=== PATIENT | female | born 1950 | race Caucasian/White ===

== ENCOUNTER 2016-11-20 19:39 | Inpatient (IN) ==
[2016-11-20] MEDS ORDERED: methylPREDNISolone 125 MG/2 ML VIAL IVP ONE (19:42)
[2016-11-20] MEDS ORDERED: Ipratropium/Albuterol Neb 3 ML IH ONE (19:42)
--- NOTE | 2016-11-20 19:42 | Emergency Department Note ---
Disposition Clinical Impression: COPD exacerbation, Hypoxia Disposition: Admitted As Inpatient Condition: Fair Referrals: NO,PCP [Primary Care Provider] - Forms: ED Satisfaction Letter Time of Disposition: 21:49 SOB HPI - General Chief Complaint: ED Shortness of Breath/Dyspnea Stated Complaint: RILEY Time Seen by Provider: 11/20/16 19:40 Limitations: no limitations Nursing Notes Reviewed: Yes Vital Signs Reviewed: Yes - History of Present Illness 66-year-old female with history of COPD presents to the emergency department by EMS with a complaint of increased shortness of breath over the past several hours. Family reports that she has actually been getting more short of breath over the past few days. She has had some increased cough with white sputum. Fever. No chest pain. The patient is a smoker and continues to smoke. She does have home oxygen which she just uses as needed. She was given a DuoNeb by EMS and on arrival here her oxygen saturation was 90% on oxygen at 4 L/m. Pt Subjective Complaint: shortness of breath Onset (ago): day(s) (2) Severity: moderate Consistency/Duration: gradually worsening Improves with: oxygen, bronchodilators Worsens with: exertion, coughing Known history of: COPD Associated symptoms: Reports: cough, wheezing, sputum production, nausea/ vomiting. Denies: chest pain, pain with inspiration, fever Treatment prior to arrival: oxygen, bronchodilator Cough present: Yes Cough Description: Productive Cough Frequency: Intermittent Sputum production: Yes Sputum Amount: Small Sputum Color: White - Related Data Home Medications Medication Instructions Recorded Confirmed Albuterol Sulfate [Proair 2 puff IH Q4H PRN 09/29/15 10/11/16 Respiclick] Cyclobenzaprine [Flexeril] 10 mg PO BID 09/29/15 10/11/16 Fluticasone/Salmeterol [Advair 2 puff IH BID 09/29/15 10/11/16 250-50 Diskus] Gabapentin [Neurontin] 600 mg PO BID 09/29/15 10/11/16 Insulin ASPART [NovoLOG] 8 unit SQ TIDWM 09/29/15 10/11/16 Insulin Glargine [Lantus] 70 unit SQ QPM 09/29/15 10/11/16 Lansoprazole [Prevacid] 30 mg PO DAILY 09/29/15 10/11/16 Lisinopril [Zestril] 10 mg PO DAILY 09/29/15 10/11/16 Tiotropium [Spiriva] 18 mcg IH DAILY 09/29/15 10/11/16 Previous Rx's Medication Instructions Recorded Albuterol Neb [Proventil Neb] 2.5 mg IH Q4H 30 Days 10/01/15 Levofloxacin [Levaquin] 500 mg PO DAILY #5 tablet 10/14/16 PredniSONE 40 mg PO DAILY #10 tablet 10/14/16 Albuterol Sulfate [Albuterol 4 puff IH Q4HR #1 hfa.aer.ad 11/17/16 Inhaler] Azithromycin [Zithromax] 250 mg PO DAILY #6 tablet 11/17/16 PredniSONE 60 mg PO ONCE 5 Days 11/17/16 Allergies Allergy/AdvReac Type Severity Reaction Status Date / Time aspirin [ASA] Allergy Anaphylaxis Verified 11/17/16 10:25 Penicillins Allergy Anaphylaxis Verified 11/17/16 10:25 All systems ED: reviewed and negative except as stated. Constitutional: Denies: fever Cardiovascular: Denies: chest pain Respiratory: Reports: cough, dyspnea, wheezes Gastrointestinal: Reports: nausea, vomiting Past Medical History - Past Medical History Medical history: Reports: arthritis, cancer, COPD, coronary artery disease, CVA , DVT, diabetes, hyperlipidemia, hypertension, malignancy, renal disease Surgical history: Reports: , hysterectomy, other Psychiatric history: Reports: bipolar, depression - Social History Smoking Status: Current every day smoker Smokeless Tobacco Status: No Alcohol use: Reports: none Drug use: Reports: marijuana Physical Exam - General Limitations: no limitations General appearance: alert, in distress (Moderate respiratory distress on arrival ), obese - Head Head exam: atraumatic, normocephalic - Eye Eye exam: Present: normal appearance, PERRL, EOMI. Absent: scleral icterus, conjunctival injection - ENT ENT exam: normal exam, normal oropharynx, mucous membranes moist - Neck Neck exam: Present: normal inspection, full ROM, trachea midline. Absent: tenderness, meningismus, lymphadenopathy - Chest Chest inspection: Present: normal inspection, symmetric chest wall rise. Absent : tenderness - Respiratory Respiratory exam: Present: respiratory distress, wheezes (Diffuse tight bilateral inspiratory and expiratory wheezes.) - Cardiovascular Cardiovascular exam: Present: normal rhythm, tachycardia - Abdominal Exam Abdominal exam: Present: soft, Non-Tender, normal bowel sounds - Extremities Exam Extremities exam: Present: normal inspection. Absent: tenderness, pedal edema - Back Exam Back exam: Present: normal inspection. Absent: CVA tenderness (R), CVA tenderness (L) - Neurological Exam Neurological exam: Present: alert, oriented X3. Absent: motor sensory deficit - Psychiatric Psychiatric exam: Present: normal affect, normal mood - Skin Skin exam: Present: warm, dry, intact, normal color. Absent: cyanosis, diaphoresis Course Course Narrative: 66-year-old female with exacerbation of COPD. Received DuoNeb per EMS and oxygen. Minimal improvement. DuoNeb since a Medrol here with some improvement but persistent wheezing and hypoxia. Discussed with the hospitalist for admission. - Consultations Consultation #1: Discussed with the hospitalist, Dr. Tovar, and he accepted patient for admission for exacerbation of COPD. Time: 21:35 Vital Signs Temperature 98.3 F 11/20/16 19:42 Pulse Rate 106 11/20/16 19:42 Respiratory Rate 20 11/20/16 19:42 Blood Pressure 174/77 11/20/16 19:42 O2 Sat by Pulse Oximetry 93 L 11/20/16 19:42 Temperature 98.3 F 11/20/16 19:42 Pulse Rate 109 11/20/16 21:06 Respiratory Rate 20 11/20/16 21:06 Blood Pressure 142/69 11/20/16 21:06 O2 Sat by Pulse Oximetry 93 L 11/20/16 21:48 Oxygen Delivery Oxygen Delivery Nasal Cannula Shortness of Breath/Dyspnea - [facility] Narrative Medical decision making narrative: 66-year-old female with exacerbation of COPD. Received DuoNeb per EMS and oxygen. Minimal improvement. DuoNeb since a Medrol here with some improvement but persistent wheezing and hypoxia. Discussed with the hospitalist for admission. - Medical Records Medical records reviewed: Yes I reviewed the patient's medical records. - Lab Data Lab results reviewed: Yes I reviewed the patient's lab results. Result diagrams: 11/20/16 20:18 11/20/16 20:18 Lab Results 11/20/16 11/20/16 11/20/16 Range/Units 20:18 20:18 20:18 WBC 6.3 (4.3-11.1) K/mcL RBC 5.94 H (3.82-4.97) M/mcL Hgb 16.5 H (11.5-15.4) g/dL Hct 53.1 H (35.3-44.9) % MCV 89.4 (83.0-100.0) fL MCH 27.8 L (28.0-33.3) pg MCHC 31.1 L (31.6-35.5) g/dL RDW 14.6 H (11.5-14.5) % Plt Count 190 (140-400) K/mcL MPV 9.6 (9.4-12.4) fL Immature Gran % 0.3 (0-4) % Seg Neutrophils % 73.2 % Lymphocytes % 16.0 % Monocytes % 9.7 % Eosinophils % 0.3 % Basophils % 0.5 % Neutrophils # 4.6 (1.6-8.9) K/mcL Lymphocytes # 1.0 (0.6-4.6) K/mcL Monocytes # 0.6 (0.0-1.3) K/mcL Eosinophils # 0.0 (0.0-0.6) K/mcL Basophils # 0.0 (0.0-0.2) K/mcL Sodium 140 (136-145) mEq/L Potassium 3.9 (3.5-4.5) mEq/L Chloride 99 (98-109) mEq/L Carbon Dioxide 29 (19-29) mEq/L BUN 17 (7-20) mg/dL Creatinine 1.11 (0.57-1.11) mg/dL Est GFR ( Amer) 60 (> 60) Est GFR (Non-Af Amer) 49 L (> 60) BUN/Creatinine Ratio 15 (6-26) Glucose 152 H (70-99) mg/dL Calculated Osmolality 295 (280-300) Calcium 9.2 (8.6-10.8) mg/dL Troponin I 0.01 (0-0.03) ng/mL B-Natriuretic Peptide (0-100) pg/mL 11/20/16 Range/Units 20:18 WBC (4.3-11.1) K/mcL RBC (3.82-4.97) M/mcL Hgb (11.5-15.4) g/dL Hct (35.3-44.9) % MCV (83.0-100.0) fL MCH (28.0-33.3) pg MCHC (31.6-35.5) g/dL RDW (11.5-14.5) % Plt Count (140-400) K/mcL MPV (9.4-12.4) fL Immature Gran % (0-4) % Seg Neutrophils % % Lymphocytes % % Monocytes % % Eosinophils % % Basophils % % Neutrophils # (1.6-8.9) K/mcL Lymphocytes # (0.6-4.6) K/mcL Monocytes # (0.0-1.3) K/mcL Eosinophils # (0.0-0.6) K/mcL Basophils # (0.0-0.2) K/mcL Sodium (136-145) mEq/L Potassium (3.5-4.5) mEq/L Chloride (98-109) mEq/L Carbon Dioxide (19-29) mEq/L BUN (7-20) mg/dL Creatinine (0.57-1.11) mg/dL Est GFR ( Amer) (> 60) Est GFR (Non-Af Amer) (> 60) BUN/Creatinine Ratio (6-26) Glucose (70-99) mg/dL Calculated Osmolality (280-300) Calcium (8.6-10.8) mg/dL Troponin I (0-0.03) ng/mL B-Natriuretic Peptide 42 (0-100) pg/mL - Radiology Data Radiology results reviewed: Yes I reviewed the patient's radiology results. Chest X-Ray 11/20/16 19:43 IMPRESSION: Findings concerning for interstitial pulmonary edema. D/ / 11/20/2016 20:48:27 Jake Luke MD / [facility] Interpreting Provider: Jake Luke MD - EKG Data EKG attestation: Yes I reviewed and interpreted this EKG. EKG results narrative: Sinus tachycardia with occasional PAC, heart rate 106, no acute changes. EKG shows normal: Reports: sinus rhythm Rate: Reports: tachycardia Rhythm: Reports: PAC's When compared to previous EKG there are: no significant changes
[2016-11-20] MEDS: 0.9 % Sodium Chloride 1,000 ML IVC SCH (20:12)
[2016-11-20 20:34] LABS: Hematocrit 53.1 % (35.3-44.9); Hemoglobin 16.5 g/dL (11.5-15.4); Mean Corpuscular HGB Conc 31.1 g/dL (31.6-35.5); Mean Corpuscular Hemoglobin 27.8 pg (28.0-33.3); Mean Corpuscular Volume 89.4 fL (83.0-100.0); Mean Platelet Volume 9.6 fL (9.4-12.4); Platelet Count 190 K/mcL (140-400); Red Blood Count 5.94 M/mcL (3.82-4.97); Red Cell Distribution Width 14.6 % (11.5-14.5); Segmented Neutrophils % 73.2 %
[2016-11-20 20:35] LABS: Basophils % 0.5 %; Eosinophils % 0.3 %; Immature Granulocytes % 0.3 % (0-4); Monocytes # 0.6 K/mcL (0.0-1.3); Monocytes % 9.7 %; Neutrophils # 4.6 K/mcL (1.6-8.9)
[2016-11-20 20:47] LABS: Calcium 9.2 mg/dL (8.6-10.8); Potassium 3.9 mEq/L (3.5-4.5)
[2016-11-20 22:26] LABS: Bilirubin,Urine Negative (Negative); Blood,Urine Negative (Negative); Clarity,Urine Clear (Clear); Color,Urine Yellow (Yellow); Glucose,Urine (UA) Normal (Normal); Ketones,Urine Negative (Negative); Leukocyte Esterase,Urine Negative (Negative); Nitrite,Urine Negative (Negative); PH,Urine 5.5 pH Units (5.0-8.0); Protein,Urine 30 mg/dL (Neg-Trace); Specific Gravity,Urine 1.017 (1.010-1.025); Urobilinogen,Urine Normal (Normal)
[2016-11-20 22:28] LABS: Bacteria,Urine None Seen per hpf (None-Few); Hyaline Casts,Urine None Seen per lpf (None-Few); RBC,Urine 0-3 per hpf (0-3); Squamous Epithelial Cell,Urine Many per lpf (None-Few); WBC,Urine 0-3 per hpf (0-3)
--- NOTE | 2016-11-20 23:57 | Internal Med History&Physical ---
Date of Encounter: 11/21/16 Time of Encounter: 11:00 Assessment and Plan (1) COPD exacerbation Current visit: Yes Status: Acute CXR with pulmonary vascular redistribution suggesting interstitial pulmonary edema Methylprednisolone 125mg IVP and Duoneb 9mL given in ED No leukocytosis O2 sat 93% on 15L, continue continuous pulse oximetry Duonebs QID Albuterol Nebs q4 PRN Solumedrol 40mg IV BID Prophylactic Levoquin 500 po Q Day (2) Hypoxia Current visit: Yes Status: Acute Plan as above (3) Acute bronchitis Current visit: Yes Status: Acute See plan as above Qualifiers: Bronchitis organism: unspecified organism Qualified Code(s): J20.9 - Acute bronchitis, unspecified (4) Acute and chronic respiratory failure ([id number]) Current visit: No Status: Acute Continue plan as above Qualifiers: Respiratory failure complication: hypoxia Qualified Code(s): J96.21 - Acute and chronic respiratory failure with hypoxia (5) Lung mass Current visit: No Status: Acute (6) DM (diabetes mellitus), type 2 Current visit: No Status: Chronic Insulin protocol Moderate-dose correction AC Low-dose correction QHS Qualifiers: Diabetes mellitus complication status: without complication Diabetes mellitus group home insulin use: with superintendent container terminal use Qualified Code(s): E11.9 - Type 2 diabetes mellitus without complications; Z79.4 - superintendent terminal (current) use of insulin (7) Morbid obesity with BMI of 40.0-44.9, adult Current visit: No Status: Chronic (8) DVT prophylaxis Current visit: No Status: Acute Lovenox 50u subQ (9) Post-thrombotic syndrome of right lower extremity Current visit: Yes Status: Acute [facility] Internal Medicine - H&P: HPI Chief complaint: dyspnea, hypoxia Admitted From: Emergency Dept Plans for Post Hospital Care: Home History of present illness: Ms. Mclaughlin is a 66 year old female with 3 day history of worsening dyspnea. This morning (11/20), dyspnea became significantly worse. Patient was unable to breath at times. Family called EMS and patient was found to have O2 sats between 55-60%. Patient is on home O2 at 3L, but is noncompliant with using it. She does not use a BIPAP or CPAP at home. Patient states that the past three days she has had increased cough productive of non-bloody green-brown sputum. Today she had an episode of vomiting. She continues to smoke despite her COPD and current diagnosis of lung cancer (x1 year). She does not wish to have the lung cancer treated. Past Med Surg Social Fam HX - Past Medical History Medical history: arthritis, cancer (lung, history of breast cancer), COPD, coronary artery disease, CVA, DVT, diabetes, hyperlipidemia, hypertension, malignancy, renal disease Psychiatric history: bipolar, depression - Past Surgical History Surgical History: , hysterectomy, other - Social History Smoking Status: Current every day smoker Smokeless Tobacco Status: No Alcohol use: none Drug use: marijuana - Family History Mother Adopted: Yes Father Adopted: Yes Internal Medicine - H&P: Meds Albuterol Sulfate [Proair Respiclick] 2 puff IH Q4H PRN 09/29/15 [History] Cyclobenzaprine [Flexeril] 10 mg PO BID 09/29/15 [History] Fluticasone/Salmeterol [Advair 250-50 Diskus] 2 puff IH BID 09/29/15 [History] Gabapentin [Neurontin] 600 mg PO BID 09/29/15 [History] Insulin ASPART [NovoLOG] 8 unit SQ TIDWM 09/29/15 [History] Insulin Glargine [Lantus] 70 unit SQ QPM 09/29/15 [History] Lansoprazole [Prevacid] 30 mg PO DAILY 09/29/15 [History] Lisinopril [Zestril] 10 mg PO DAILY 09/29/15 [History] Tiotropium [Spiriva] 18 mcg IH DAILY 09/29/15 [History] Albuterol Neb [Proventil Neb] 2.5 mg IH Q4H 30 Days 10/01/15 [Rx] Levofloxacin [Levaquin] 500 mg PO DAILY #5 tablet 10/14/16 [Rx] PredniSONE 40 mg PO DAILY #10 tablet 10/14/16 [Rx] Albuterol Sulfate [Albuterol Inhaler] 4 puff IH Q4HR #1 hfa.aer.ad 11/17/16 [Rx] Azithromycin [Zithromax] 250 mg PO DAILY #6 tablet 11/17/16 [Rx] PredniSONE 60 mg PO ONCE 5 Days 11/17/16 [Rx] Allergies aspirin [ASA] Allergy (Verified 11/17/16 10:25) Anaphylaxis Penicillins Allergy (Verified 11/17/16 10:25) Anaphylaxis All Systems PM: A 10-system review of systems was performed and is negative for pertinent findings except as documented above in the HPI. - Constitutional Vitals: Temp Pulse Resp BP Pulse Ox 98.3 F 97 20 147/70 94 L 11/20/16 19:42 11/20/16 22:24 11/20/16 23:11 11/20/16 23:11 11/20/16 22:24 General appearance: Present: disheveled, mild distress, A&O X 3, obese, answers questions appropriately - Head Head exam: Present: atraumatic, normal inspection, normocephalic - Eye Eye exam: Present: EOMI (Right iris of eye appears opaque, fixed) - Neck Neck exam general surgery: Present: full ROM - Respiratory Respiratory exam: Present: accessory muscle use, respiratory distress, rhonchi ( all lung santacruz), tachypnea - Cardiovascular Cardiovascular exam: Present: tachycardia (distant heart sounds, pulses regulary rhythm) - GI/Abdominal Additional comments: protuberant, no rash below pannus - Rectal Rectal exam: Present: tenderness (erythema and tenderness of skin overlying coccyx) - Extremities Exam Additional comments: Bilateral feet cool to touch, left foot with excoriations from previous fall . Right calf greater in size than left calf - Expanded Lower Extremities Exam Foot/Toe exam: Present: abrasion (Left foot-multiple abraisions), onychomycosis (B/L) - Neurological Exam Neurological exam: Present: oriented X3, strengths equal and symetr throughout - Psychiatric Psychiatric exam: Present: normal affect, normal mood - Skin Skin exam: Present: rash (lower legs with pigmented purpura, ecchymosis to bilateral upper arms, left inframammary breast with cuong) Internal Med - H&P Results - Labs CBC & Chem 7: 11/20/16 20:18 11/20/16 20:18 - EKG Data -: EKG Interpreted by Myself EKG shows normal: sinus rhythm Rate: tachycardia - Attending Attestation I examined this patient and my medical decision-making was reviewed with the ANGLE SHEAR SET UP OPERATOR/PA/Advanced Practice Nurse/Resident Physician. I agree with the documented findings, disposition and treatment plan as described except to the extent set forth below.
[2016-11-21] MEDS ORDERED: Acetaminophen 325 MG TABLET PO PRN (00:09)
[2016-11-21] MEDS ORDERED: Ondansetron 4 MG/2 ML VIAL IVP PRN (00:09)
[2016-11-21] MEDS ORDERED: Naloxone 0.4 MG/ML INJ IVP PRN (00:09)
[2016-11-21] MEDS ORDERED: *HR* Dextrose 50 % in Water (Syg) 50 ML SYRINGE IVP PRN (00:12)
[2016-11-21] MEDS ORDERED: Dextrose Gel 15 GM PO PRN ×2 (00:12)
[2016-11-21] MEDS ORDERED: D5% in Water 1,000 ML IV PRN (00:12)
[2016-11-21] MEDS ORDERED: Insulin DETEMIR 100 UNIT/ML X5UNITS SQ SCH ×2 (00:30→09:00)
[2016-11-21] MEDS ORDERED: Albuterol 2.5 MG/3 ML NEBULIZER IH PRN (00:47)
[2016-11-21] MEDS: 0.9 % Sodium Chloride 1,000 ML IVC SCH (01:17)
[2016-11-21] MEDS: levoFLOXacin 500 MG TABLET PO SCH ×2 (01:17→08:20)
[2016-11-21] MEDS ORDERED: Insulin DETEMIR 100 UNIT/ML X5UNITS SQ ONE ×2 (02:00→02:15)
[2016-11-21 04:26] LABS: Basophils % 0.3 %; Hematocrit 51.4 % (35.3-44.9); Hemoglobin 15.7 g/dL (11.5-15.4); Immature Granulocytes % 0.7 % (0-4); Lymphocytes # 0.4 K/mcL (0.6-4.6); Lymphocytes % 5.7 %; Mean Corpuscular HGB Conc 30.5 g/dL (31.6-35.5); Mean Corpuscular Hemoglobin 27.5 pg (28.0-33.3); Mean Corpuscular Volume 90.2 fL (83.0-100.0); Monocytes # 0.1 K/mcL (0.0-1.3); Monocytes % 2.1 %; Neutrophils # 5.6 K/mcL (1.6-8.9); Platelet Count 206 K/mcL (140-400); Red Cell Distribution Width 14.6 % (11.5-14.5); Segmented Neutrophils % 91.2 %
[2016-11-21 04:46] LABS: BUN/Creatinine Ratio 16 (6-26); Blood Urea Nitrogen 17 mg/dL (7-20); Calcium 8.9 mg/dL (8.6-10.8); Carbon Dioxide 28 mEq/L (19-29); Chloride 100 mEq/L (98-109); Glucose 196 mg/dL (70-99); Osmolality,Calculated 297 (280-300); Potassium 4.5 mEq/L (3.5-4.5); Sodium 140 mEq/L (136-145); eGFR For African Americans > 60 (> 60); eGFR For Non-African Americans 51 (> 60)
[2016-11-21] MEDS: Ipratropium/Albuterol Neb 3 ML IH SCH ×4 (05:07→22:07)
[2016-11-21] MEDS: MethylPREDNISolone 40 MG/ML VIAL IVP SCH ×2 (06:07→16:33)
[2016-11-21] MEDS: *HR* Enoxaparin 40 MG/0.4 ML SYRINGE SQ SCH (06:07)
[2016-11-21] MEDS: Gabapentin 300 MG CAPSULE PO SCH ×2 (08:20→19:56)
[2016-11-21] MEDS: Insulin LISPRO 300 UNITS/3 ML VIAL SQ SCH ×3 (08:20→16:33)
[2016-11-21] MEDS ORDERED: Pantoprazole 40 MG VIAL IVP SCH (09:00)
[2016-11-21] MEDS: Budesonide/Formoterol 80/4.5 MDI IH SCH ×2 (10:57→22:06)
[2016-11-21] MEDS: Tiotropium 18 MCG inhalation IH SCH (10:58)
[2016-11-21] MEDS ORDERED: Furosemide 40 MG/4 ML VIAL IVP ONE (11:07)
[2016-11-21] MEDS ORDERED: Furosemide 40 MG/4 ML VIAL ONE (11:10)
--- NOTE | 2016-11-21 13:16 | Internal Med Progress Note ---
Date of Encounter: 11/21/16 Time of Encounter: 10:10 - Subjective Interval history: Ms. Mclaughlin is a 66 year old female with medical history significant for COPD admitted with 3 day history of worsening dyspnea consistent with COPD exacerbation. CXR suggest mild pulmonary edema. She received IVF all night long , worry pulmonary edema will increase, though she feels better. O/E: Not in distress, morbidly obese HEENT: Not pale, anicteric, afebrile, acyanotic, Chest: expiratory wheezing, prolonged expiratory phase. Heart: RRR, HS1/2, no murmur Abdomen: obese, soft, non-tender, no masses. COPYMAN: AAO x 3, no gross focal neurological deficits Skin: No active skin lesion Extremities: No pedal edema, normal pedal pulses, no calf tenderness. Right lower extremity larger girth than left (post-thrombotic syndrome) IMP Acute on chronic bronchitis, COPD exacerbation Acute on chronic respiratory failure Iatrogenic fluid overload. Post-thrombotic syndrome explains larger girth right lower extremity (non-acute) PLAN DC IVF IVP Lasix 40 mg x 1. Continue other care Recommend life long TEDs - Constitutional Vitals: Temp Pulse Resp BP Pulse Ox 98.0 F 72 16 127/72 94 L 11/21/16 11:33 11/21/16 11:33 11/21/16 11:33 11/21/16 11:33 11/21/16 11:33 General appearance: Present: disheveled, mild distress, A&O X 3, obese, answers questions appropriately Internal Medicine: Result - Labs CBC & Chem 7: 11/21/16 03:05 11/21/16 03:05 Labs: Short CBC 11/21/16 Range/Units 03:05 WBC 6.1 (4.3-11.1) K/mcL Hgb 15.7 H (11.5-15.4) g/dL Hct 51.4 H (35.3-44.9) % Plt Count 206 (140-400) K/mcL Neutrophils # 5.6 (1.6-8.9) K/mcL BMP 11/21/16 03:05 Sodium 140 Potassium 4.5 Chloride 100 Carbon Dioxide 28 BUN 17 Creatinine 1.08 Glucose 196 H Calcium 8.9 Consult Discharge Plan - Plan Referrals: NO,PCP [Primary Care Provider] -
[2016-11-21] MEDS ORDERED: Insulin LISPRO 300 UNITS/3 ML VIAL SQ SCH (21:00)
[2016-11-22] MEDS: Ipratropium/Albuterol Neb 3 ML IH SCH ×2 (04:42→10:41)
[2016-11-22] MEDS: MethylPREDNISolone 40 MG/ML VIAL IVP SCH (05:45)
[2016-11-22] MEDS: *HR* Enoxaparin 40 MG/0.4 ML SYRINGE SQ SCH (06:00)
[2016-11-22] MEDS: Gabapentin 300 MG CAPSULE PO SCH (07:56)
[2016-11-22] MEDS: levoFLOXacin 500 MG TABLET PO SCH (07:56)
[2016-11-22] MEDS: Insulin LISPRO 300 UNITS/3 ML VIAL SQ SCH ×2 (07:57→11:55)
[2016-11-22] MEDS: Tiotropium 18 MCG inhalation IH SCH (07:58)
[2016-11-22] MEDS: Budesonide/Formoterol 80/4.5 MDI IH SCH (10:41)
--- NOTE | 2016-11-22 12:58 | Discharge Summary ---
Date of Encounter: 11/22/16 Time of Encounter: 09:45 - Discharge Diagnosis (1) CKD (chronic kidney disease), stage III Priority: Secondary Status: Chronic Comments: Stable and consistent with her baseline, creatinine normal (2) Acute bronchitis Priority: Primary Status: Resolved Comments: Patient denies shortness of breath above her normal day of discharge. Same amount of oxygen required at home, 3 L per nasal cannula continuously. We will send her home and complete Levaquin dosage. Qualifiers: Bronchitis organism: unspecified organism Qualified Code(s): J20.9 - Acute bronchitis, unspecified (3) COPD exacerbation Priority: Primary Status: Resolved Comments: Patient denied shortness of breath above her normal day of discharge. Recommend continued follow up outpatient. Patient did not want to discuss smoking cessation or her known lung cancer. ITS Impressions Chest X-Ray 11/20/16 19:43 IMPRESSION: Findings concerning for interstitial pulmonary edema. D/ / 11/20/2016 20:48:27 [facility] Interpreting Provider: Jake Luke MD (4) Lung cancer Priority: Secondary Status: Chronic Comments: Patient is aware that she has lung cancer but does not want treatment and does not want to discuss the issue. Recommend continued follow-up outpatient. (5) Post-thrombotic syndrome of right lower extremity Priority: Secondary Status: Chronic Comments: Continue JACOBY hose (6) Acute and chronic respiratory failure ([id number]) Priority: Secondary Status: Chronic Comments: No increased need for oxygen, 3 L per nasal cannula continuously. Qualifiers: Respiratory failure complication: hypoxia Qualified Code(s): J96.21 - Acute and chronic respiratory failure with hypoxia (7) CVA, old, disturbances of vision Priority: Secondary Status: Chronic Comments: Chronic blindness right eye, no new symptoms (8) DVT prophylaxis Priority: Primary Status: Acute Comments: Subcutaneous Lovenox while admitted (9) DM (diabetes mellitus), type 2 Priority: Secondary Status: Chronic Comments: Relatively well-controlled at home with an A1c last month of 6.3%. Recommend continued follow up outpatient. Qualifiers: Diabetes mellitus complication status: without complication Diabetes mellitus exterminator termite insulin use: with snf use Qualified Code(s): E11.9 - Type 2 diabetes mellitus without complications; Z79.4 - long term care administrator (current) use of insulin (10) HTN (hypertension) Priority: Secondary Status: Chronic Comments: Controlled, slightly hypertensive at times, will recommend daily blood pressure checks at home, keeping a log, and following up outpatient. Qualifiers: Hypertension type: essential hypertension Qualified Code(s): I10 - Essential (primary) hypertension (11) Tobacco abuse Priority: Secondary Status: Chronic - Discharge Medications Prescriptions: Levofloxacin [Levaquin] 500 mg PO DAILY #5 tablet PredniSONE 10 mg PO DAILY #80 tablet Home Medications: Albuterol Sulfate [Proair Respiclick] 2 puff IH Q4H PRN 09/29/15 [History] Fluticasone/Salmeterol [Advair 250-50 Diskus] 2 puff IH BID 09/29/15 [History] Gabapentin [Neurontin] 600 mg PO BID 09/29/15 [History] Insulin ASPART [NovoLOG] 8 unit SQ TIDWM 09/29/15 [History] Insulin Glargine [Lantus] 70 unit SQ QPM 09/29/15 [History] Lansoprazole [Prevacid] 30 mg PO DAILY 09/29/15 [History] Lisinopril [Zestril] 10 mg PO DAILY 09/29/15 [History] Tiotropium [Spiriva] 18 mcg IH DAILY 09/29/15 [History] Albuterol Neb [Proventil Neb] 2.5 mg IH Q4H 30 Days 10/01/15 [Rx] Atorvastatin Calcium [Lipitor] 20 mg PO DAILY 11/21/16 [History] Duloxetine [Cymbalta] 30 mg PO BID 11/21/16 [History] Levofloxacin [Levaquin] 500 mg PO DAILY #5 tablet 11/22/16 [Rx] PredniSONE 10 mg PO DAILY #80 tablet 11/22/16 [Rx] Allergies/Adverse Reactions: Allergies aspirin [ASA] Allergy (Verified 11/17/16 10:25) Anaphylaxis Penicillins Allergy (Verified 11/17/16 10:25) Anaphylaxis Date of admission: 11/21/16 01:11 Primary care physician: PCP NO Consults: 11/22/16 11:59 Consult to Police Communications Operator [CONS] Routine Reason for SW Consult: discharge planning Discharging clinician: Susu Rivera Anticipated date of discharge: 11/22/16 - Patient Status Disposition: Home, Self-Care Condition: Fair Functional capacity at discharge: independent ambulation Overall status at discharge: patient is back to baseline - Discharge Instructions Follow Up With: Trace Davis MD [Non-Partnered Physician] - 11/26/16 1:45 pm Additional Instructions: Follow-up with primary care provider as scheduled. - Diet and Activity Activity: increase activity as tolerated, wear oxygen at all times Diet: diabetic diet, low fat, low cholesterol, low salt diet Hospital course: Ms. Mclaughlin is a 66 year old female with past medical history of COPD on 3 L continuously at home, CAD, CVA, DVT, diabetes, hyperlipidemia, hypertension, chronic kidney disease stage III, diagnosis of lung cancer approximately one year ago, continued tobacco abuse and marijuana abuse. Patient presented to the emergency department chief complaint worsening dyspnea 3 days. Family allergic EMS was called as the patient's O2 sats were noted to be between 55 and 60%. Patient readily admitting that she is not always compliant with her home oxygen. Patient also endorsing increased productive cough of green/brown sputum. Patient again stating she does not want to discuss or talk about treatment regarding her lung cancer. Chest x-ray emergency department consistent with interstitial pulmonary edema. Patient was admitted to the hospitalist service for further evaluation and management. Her IV fluids were immediately stopped and she was given an IV dose of Lasix. She was admitted and observed over the course of 3 days and on day of discharge, patient denied shortness of breath above her norm and she stated she was back to her baseline. Urinalysis negative. Patient stating she lives with 4 adult roommates however states she has her own room and states that she feels safe. She is discharged home in stable condition with close outpatient follow-up recommended. ITS Impressions Chest X-Ray 11/20/16 19:43 IMPRESSION: Findings concerning for interstitial pulmonary edema. D/ / 11/20/2016 20:48:27 [facility] Interpreting Provider: Jake Luke MD - Time Spent with Patient Total time spent providing and/or coordinating discharge services: - Constitutional Vitals: Temp Pulse Resp BP Pulse Ox 97.4 F L 63 17 177/79 85 L 11/22/16 06:46 11/22/16 06:46 11/22/16 06:46 11/22/16 06:46 11/22/16 06:46 General appearance: Present: disheveled, A&O X 3, pleasant, no acute distress, obese, answers questions appropriately - Head Head exam: Present: atraumatic, normocephalic - Eye Eye exam: Present: PERRL (Blind right eye), conjuntiva pink, sclera anicteric Pupils: Present: PERRL - Neck Neck exam general surgery: Present: supple, trachea midline. Absent: lymphadenopathy - Respiratory Respiratory exam: Present: decreased breath sounds, prolonged expiratory phase, wheezes. Absent: accessory muscle use, rales, respiratory distress, rhonchi - Cardiovascular Cardiovascular exam: Present: RRR, +S1, +S2. Absent: diastolic murmur, gallop, rubs, systolic murmur - GI/Abdominal GI/Abdominal exam: Present: normal bowel sounds, soft, no peritoneal signs. Absent: distended, tenderness - Extremities Exam Extremities exam: Present: warm, radial pulses palpable and symetrical. Absent : calf tenderness, cyanotic, pedal edema - Neurological Exam Neurological exam: Present: alert, CN II-XII intact, normal gait, oriented X3, no focal deficits, strengths equal and symetr throughout. Absent: pronater drift, facial droop, speech deficit - Skin Skin exam: Present: dry, intact, normal color, warm
--- NOTE | 2016-11-22 14:40 | Physician Discharge Referral ---
Home Health/Hosp Referral Info Transfer to: Home Health Attending Provider: Mounika Rivera CNP Provider in Charge Post Discharge: PCP - Diagnosis (1) CKD (chronic kidney disease), stage III Priority: Secondary Status: Chronic (2) Acute bronchitis Priority: Primary Status: Resolved (3) COPD exacerbation Priority: Primary Status: Resolved (4) Lung cancer Priority: Secondary Status: Chronic (5) Post-thrombotic syndrome of right lower extremity Priority: Secondary Status: Chronic (6) Acute and chronic respiratory failure ([id number]) Priority: Secondary Status: Chronic (7) CVA, old, disturbances of vision Priority: Secondary Status: Chronic (8) DVT prophylaxis Priority: Primary Status: Acute (9) DM (diabetes mellitus), type 2 Priority: Secondary Status: Chronic (10) HTN (hypertension) Priority: Secondary Status: Chronic (11) Tobacco abuse Priority: Secondary Status: Chronic - Respiratory Orders Oxygen / L per min (3) Smoking Cessation: Smoking cessation has been advised. For more information, call the [place] Tobacco Quit Line at 4-141-UZRN-NOW. - Diet/Nutrition Diet/Nutrition Orders: No Added Salt (JESSIE), No Concentrated Sweets - Activity Activity Orders: Up ad anabel - Services Needed Following services are medically necessary services: Nursing, Home Health Aide, Physical Therapy, Occupational Therapy - Transfer Medications Prescriptions: Levofloxacin [Levaquin] 500 mg PO DAILY #5 tablet PredniSONE 10 mg PO DAILY #80 tablet Home Medications: Albuterol Sulfate [Proair Respiclick] 2 puff IH Q4H PRN 09/29/15 [History] Fluticasone/Salmeterol [Advair 250-50 Diskus] 2 puff IH BID 09/29/15 [History] Gabapentin [Neurontin] 600 mg PO BID 09/29/15 [History] Insulin ASPART [NovoLOG] 8 unit SQ TIDWM 09/29/15 [History] Insulin Glargine [Lantus] 70 unit SQ QPM 09/29/15 [History] Lansoprazole [Prevacid] 30 mg PO DAILY 09/29/15 [History] Lisinopril [Zestril] 10 mg PO DAILY 09/29/15 [History] Tiotropium [Spiriva] 18 mcg IH DAILY 09/29/15 [History] Albuterol Neb [Proventil Neb] 2.5 mg IH Q4H 30 Days 10/01/15 [Rx] Atorvastatin Calcium [Lipitor] 20 mg PO DAILY 11/21/16 [History] Duloxetine [Cymbalta] 30 mg PO BID 11/21/16 [History] Levofloxacin [Levaquin] 500 mg PO DAILY #5 tablet 11/22/16 [Rx] PredniSONE 10 mg PO DAILY #80 tablet 11/22/16 [Rx] Allergies/Adverse Reactions: Allergies aspirin [ASA] Allergy (Verified 11/17/16 10:25) Anaphylaxis Penicillins Allergy (Verified 11/17/16 10:25) Anaphylaxis Certification: Further, I certify that my clinical findings support that this patient is homebound (i.e. absences from home require considerable and taxing effort and are for medical reasons or congregation services or infrequently or short duration when for other reasons) because: Homebound Reason: Leaving home requires considerable and taxing effort due to condition, Severity of cardiac or pulmonary status limits activity tolerance Attestation: My signature below is to certify that this patient is under my care and that I, or nurse practitioner, or a physician's surgical services assistant working with me, has a face-to -face encounter with this patient.
[2016-11-22 15:01] VITALS: BP 113/69
--- NOTE | 2016-11-22 17:26 | Electrocardiograph Report ---
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
== END 2016-11-22 15:29 | disposition home or self-care (01) | DRG 140 ==
LOC: 3BNU 19:39 → EMEROO 19:39 → 3BNU 23:16 → SUATTDRO 11-21 01:11
PROVIDERS: ADMIT Family Medicine; ATTEND Nurse Practitioner Family

== ENCOUNTER 2016-11-29 10:48 | Observation (INO) ==
[2016-11-29] MEDS ORDERED: methylPREDNISolone 125 MG/2 ML VIAL IVP ONE (10:50)
[2016-11-29] MEDS ORDERED: Ipratropium/Albuterol Neb 3 ML IH ONE (10:51)
[2016-11-29] MEDS ORDERED: Ipratropium/Albuterol Neb 3 ML ONE (10:53)
[2016-11-29 11:17] LABS: Basophils % 0.3 %; Eosinophils # 0.1 K/mcL (0.0-0.6); Eosinophils % 1.2 %; Hematocrit 53.3 % (35.3-44.9); Hemoglobin 17.3 g/dL (11.5-15.4); Immature Granulocytes % 0.7 % (0-4); Lymphocytes # 2.5 K/mcL (0.6-4.6); Lymphocytes % 36.6 %; Mean Corpuscular HGB Conc 32.5 g/dL (31.6-35.5); Mean Corpuscular Hemoglobin 28.4 pg (28.0-33.3); Mean Corpuscular Volume 87.4 fL (83.0-100.0); Mean Platelet Volume 10.2 fL (9.4-12.4); Monocytes # 0.4 K/mcL (0.0-1.3); Monocytes % 5.5 %; Neutrophils # 3.8 K/mcL (1.6-8.9); Platelet Count 164 K/mcL (140-400); Red Cell Distribution Width 14.8 % (11.5-14.5); Segmented Neutrophils % 55.7 %
[2016-11-29 11:28] LABS: Calcium 9.2 mg/dL (8.6-10.8); Potassium 3.6 mEq/L (3.5-4.5)
--- NOTE | 2016-11-29 11:55 | Emergency Department Note ---
Disposition Clinical Impression: COPD exacerbation, Shortness of breath Disposition: Admitted As Inpatient Referrals: NO,PCP [Primary Care Provider] - Forms: ED Satisfaction Letter Time of Disposition: 15:56 SOB HPI - General Chief Complaint: ED Shortness of Breath/Dyspnea Stated Complaint: RILEY Time Seen by Provider: 11/29/16 10:50 Source: patient, EMS Nursing Notes Reviewed: Yes Vital Signs Reviewed: Yes - History of Present Illness Patient is a 66-year-old female complains of shortness of breath just prior to arrival at the ED. Patient is unable to give me a specific time. Patient states she woke up fine. Patient has a history of COPD diabetes, lung mass, posttraumatic syndrome right lower extremity. Patient denies fever, chills. Patient denies any pain at this time. Patient is unable to give specifics of recent history past medical history. Patient does state that she still active smoker. - Related Data Home Medications Medication Instructions Recorded Confirmed Albuterol Sulfate [Proair 2 puff IH Q4H PRN 09/29/15 11/29/16 Respiclick] Fluticasone/Salmeterol [Advair 2 puff IH BID 09/29/15 11/29/16 250-50 Diskus] Gabapentin [Neurontin] 600 mg PO BID 09/29/15 11/29/16 Insulin ASPART [NovoLOG] 8 unit SQ TIDWM 09/29/15 11/29/16 Insulin Glargine [Lantus] 70 unit SQ QPM 09/29/15 11/29/16 Lansoprazole [Prevacid] 30 mg PO DAILY 09/29/15 11/29/16 Lisinopril [Zestril] 10 mg PO DAILY 09/29/15 11/29/16 Tiotropium [Spiriva] 18 mcg IH DAILY 09/29/15 11/29/16 Atorvastatin Calcium [Lipitor] 20 mg PO DAILY 11/21/16 11/29/16 Duloxetine [Cymbalta] 30 mg PO BID 11/21/16 11/29/16 Albuterol Neb [Proventil Neb] 2.5 mg IH Q4H PRN 11/29/16 11/29/16 Previous Rx's Medication Instructions Recorded PredniSONE 10 mg PO DAILY #80 tablet 11/22/16 Allergies Allergy/AdvReac Type Severity Reaction Status Date / Time aspirin [ASA] Allergy Anaphylaxis Verified 11/29/16 10:50 Penicillins Allergy Anaphylaxis Verified 11/29/16 10:50 All systems ED: reviewed and negative except as stated. Constitutional: Denies: fever, chills Cardiovascular: Denies: chest pain, palpitations Respiratory: Reports: cough, dyspnea Gastrointestinal: Denies: abdominal pain, nausea, vomiting, diarrhea Past Medical History - Past Medical History Medical history: Reports: arthritis, cancer, COPD, coronary artery disease, CVA , DVT, diabetes, hyperlipidemia, hypertension, malignancy, renal disease Surgical history: Reports: , hysterectomy, other Psychiatric history: Reports: bipolar, depression - Social History Smoking Status: Current every day smoker Smokeless Tobacco Status: No Alcohol use: Reports: none Drug use: Reports: none, marijuana Physical Exam Vital Signs Temperature 97.6 F 11/29/16 10:50 Pulse Rate 72 11/29/16 10:50 Respiratory Rate 17 11/29/16 10:50 Blood Pressure 150/72 11/29/16 10:50 O2 Sat by Pulse Oximetry 93 L 11/29/16 10:50 Temperature 97.6 F 11/29/16 10:50 Pulse Rate 91 11/29/16 11:37 Respiratory Rate 18 11/29/16 11:37 Blood Pressure 142/80 11/29/16 11:37 O2 Sat by Pulse Oximetry 98 11/29/16 11:37 Oxygen Delivery Oxygen Delivery Aerosol Mask -General Appearance: Patient is a 66-year-old female who is alert and oriented 3 and in no acute distress. Patient having slightly increased work of breathing but otherwise comfortable. -Neurological exam: Cranial nerves II-12 intact, no focal deficits observed, strength equal 5/5 bilaterally in upper and lower extremities, cerebellar motion test negative. 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 Extraocular motion intact and left eye pupil round reactive to light - ENT ENT exam: normal exam, normal oropharynx, mucous membranes dry - Neck Neck exam: Present: normal inspection, full ROM, trachea midline, negative JVD - Chest Chest inspection: Present: Patient has bilateral equal rise and fall of chest wall. Non-tender to palpation. - Respiratory Respiratory exam: Lungs sounds with bilateral rhonchi no wheezing Cardiovascular Cardiovascular exam: Present: regular rate, normal rhythm, normal heart sounds, without murmurs rubs or gallops. - Abdominal Exam Abdominal exam: Present: soft, nondistended, Non-Tender light and deep palpation in all quadrants. Bowel sounds normoactive throughout all 4 quadrants. Negative for hyper or hyperresonance. - Extremities Exam Extremities exam: Present: normal inspection, full ROM, pulses equal bilateral radial and dorsal pedal pulses. No lower extremity edema noted tenderness to palpation - Back Exam Back exam: Present: normal inspection, full ROM. Absent: tendernness - Psychiatric Psychiatric exam: Present: normal affect, normal mood - Skin Skin exam: Present: warm, dry, intact, normal color - General General appearance: alert, in no apparent distress Course Course Narrative: Patient seen and examined. CBC BMP troponin and BNP ordered. Chest x-ray ordered. Patient started on DuoNeb therapy. - Reevaluation(s) Reevaluation #1: Patient doing well. No complaints. Patient currently having DuoNeb therapy Time: 11:56 Reevaluation #2: Patient well. The patient states that she is not in any pain. Patient is breathing better after DuoNeb but still has some wheezing in her right lung. Patient has poor air movement in her lower lobes as well. Time: 12:30 Reevaluation #3: Patient doing well. Discussed with patient that I think she should be admitted to the hospital. Patient states that she agrees. Still waiting on urinalysis results Time: 13:00 Additional Reevaluation(s): Patient is very impatient and asking about updates every 5 minutes. I have explained to the patient twice that I am Awaiting ABG information before being able to present her case to hospitalist for admission. Patient states that she understands. - Consultations Consultation #1: Dr. Roman has accepted for admission 1552hrs Time: 15:52 Vital Signs Temperature 97.6 F 11/29/16 10:50 Pulse Rate 72 11/29/16 10:50 Respiratory Rate 17 11/29/16 10:50 Blood Pressure 150/72 11/29/16 10:50 O2 Sat by Pulse Oximetry 93 L 11/29/16 10:50 Temperature 97.6 F 11/29/16 10:50 Pulse Rate 72 11/29/16 15:48 Respiratory Rate 16 11/29/16 15:48 Blood Pressure 129/62 11/29/16 15:48 O2 Sat by Pulse Oximetry 92 L 11/29/16 15:48 Oxygen Delivery Oxygen Delivery Nasal Cannula Shortness of Breath/Dyspnea - [facility] Narrative Medical decision making narrative: Ms. Mclaughlin is a 66-year-old female with history of COPD, diabetes, lung mass, post-thrombotic syndrome right lower extremity, presents with a COPD exacerbation. This is patient's third COPD exacerbation within 2 weeks. Patient was admitted over week ago and discharged home and is back today. Patient has increase oxygen requirements at home from 2 L to 4 L today to maintain O2 sat is 92%. Patient's condition is worrisome for COPD exacerbation secondary to possible HCAP H has a history of DVT or PE. Patient does not have tachycardia, does not have leg tenderness or chest pain. Patient does not complain of fevers but patient is having increased confusion. CBC shows a hemoglobin of 17.3 and a hematocrit of 53.3, patient has BUN of 31 and a creatinine of 1.21 which is mildly elevated. EKG shows ST depression in V5 with no reciprocal changes. Patient's troponin is negative at 0.02. Chest x -ray does not show minimally but does show bibasilar atelectasis. Patient has been on Levaquin 500 mg twice a day and prednisone 10 mg daily since last admission. Patient's ABG today shows a pH of 7.43 but PCO2 of 47 and a PO2 of 60 and bicarbonate 31.2. Patient has been on oxygen 4 L for the past several hours and is oxygenating but having poor perfusion. Possibly failing outpatient therapy. Recommended admission. Dr. Roman has accepted for admission 1552hrs - Medical Records Medical records reviewed: Yes I reviewed the patient's medical records. - Lab Data Lab results reviewed: Yes I reviewed the patient's lab results. Lab results narrative: Short CBC 11/29/16 Range/Units 11:09 WBC 6.9 (4.3-11.1) K/mcL Hgb 17.3 H (11.5-15.4) g/dL Hct 53.3 H (35.3-44.9) % Plt Count 164 (140-400) K/mcL Neutrophils # 3.8 (1.6-8.9) K/mcL BMP 11/29/16 Range/Units 11:09 Sodium 140 (136-145) mEq/L Potassium 3.6 (3.5-4.5) mEq/L Chloride 97 L (98-109) mEq/L Carbon Dioxide 28 (19-29) mEq/L BUN 31 H (7-20) mg/dL Creatinine 1.21 H (0.57-1.11) mg/dL Glucose 156 H (70-99) mg/dL Calcium 9.2 (8.6-10.8) mg/dL Cardiac Enzymes 11/29/16 Range/Units 11:09 Troponin I 0.02 (0-0.03) ng/mL Urine 11/29/16 Range/Units 13:18 Urine Color Dark Yellow (Yellow) Urine Clarity Clear (Clear) Urine pH 5.5 (5.0-8.0) pH Units Ur Specific [place] 1.024 (1.010-1.025) Urine Protein Trace (Neg-Trace) mg/dL Urine Glucose (UA) Normal (Normal) mg/dL Result diagrams: 11/29/16 11:09 11/29/16 11:09 Lab Results 11/29/16 11/29/16 11/29/16 Range/Units 11:09 11:09 11:09 WBC 6.9 (4.3-11.1) K/mcL RBC 6.10 H (3.82-4.97) M/mcL Hgb 17.3 H (11.5-15.4) g/dL Hct 53.3 H (35.3-44.9) % MCV 87.4 (83.0-100.0) fL MCH 28.4 (28.0-33.3) pg MCHC 32.5 (31.6-35.5) g/dL RDW 14.8 H (11.5-14.5) % Plt Count 164 (140-400) K/mcL MPV 10.2 (9.4-12.4) fL Immature Gran % 0.7 (0-4) % Seg Neutrophils % 55.7 % Lymphocytes % 36.6 % Monocytes % 5.5 % Eosinophils % 1.2 % Basophils % 0.3 % Neutrophils # 3.8 (1.6-8.9) K/mcL Lymphocytes # 2.5 (0.6-4.6) K/mcL Monocytes # 0.4 (0.0-1.3) K/mcL Eosinophils # 0.1 (0.0-0.6) K/mcL Basophils # 0.0 (0.0-0.2) K/mcL ABG pH (7.32-7.45) pH Units ABG pCO2 (35-45) mmHg ABG pO2 (85-104) mmHg ABG HCO3 (21-27) mEQ/L ABG Total CO2 (20-26) mEq/L ABG O2 Saturation (95-98) % ABG Base Excess (-2.0 to 3.0) mEq/L Blood Gas Modality Inspired O2 % Sodium 140 (136-145) mEq/L Potassium 3.6 (3.5-4.5) mEq/L Chloride 97 L (98-109) mEq/L Carbon Dioxide 28 (19-29) mEq/L BUN 31 H (7-20) mg/dL Creatinine 1.21 H (0.57-1.11) mg/dL Est GFR ( Amer) 54 L (> 60) Est GFR (Non-Af Amer) 45 L (> 60) BUN/Creatinine Ratio 26 (6-26) Glucose 156 H (70-99) mg/dL Calculated Osmolality 300 (280-300) Calcium 9.2 (8.6-10.8) mg/dL Troponin I 0.02 (0-0.03) ng/mL B-Natriuretic Peptide (0-100) pg/mL Urine Color (Yellow) Urine Clarity (Clear) Urine pH (5.0-8.0) pH Units Ur Specific [place] (1.010-1.025) Urine Protein (Neg-Trace) mg/dL Urine Glucose (UA) (Normal) mg/dL Urine Ketones (Negative) mg/dL Urine Blood (Negative) Urine Nitrite (Negative) Urine Bilirubin (Negative) Urine Urobilinogen (Normal) mg/dL Ur Leukocyte Esterase (Negative) Urine Microscopic RBC (0-3) per hpf Urine Microscopic WBC (0-3) per hpf Ur Squamous Epith Cells (None-Few) per lpf Urine Bacteria (None-Few) per hpf Hyaline Casts (None-Few) per lpf Ur Culture Indicated? (NO) 11/29/16 11/29/16 11/29/16 Range/Units 11:09 13:18 14:58 WBC (4.3-11.1) K/mcL RBC (3.82-4.97) M/mcL Hgb (11.5-15.4) g/dL Hct (35.3-44.9) % MCV (83.0-100.0) fL MCH (28.0-33.3) pg MCHC (31.6-35.5) g/dL RDW (11.5-14.5) % Plt Count (140-400) K/mcL MPV (9.4-12.4) fL Immature Gran % (0-4) % Seg Neutrophils % % Lymphocytes % % Monocytes % % Eosinophils % % Basophils % % Neutrophils # (1.6-8.9) K/mcL Lymphocytes # (0.6-4.6) K/mcL Monocytes # (0.0-1.3) K/mcL Eosinophils # (0.0-0.6) K/mcL Basophils # (0.0-0.2) K/mcL ABG pH 7.43 (7.32-7.45) pH Units ABG pCO2 47 H (35-45) mmHg ABG pO2 60 L (85-104) mmHg ABG HCO3 31.2 H (21-27) mEQ/L ABG Total CO2 32.6 H (20-26) mEq/L ABG O2 Saturation 91 L (95-98) % ABG Base Excess 5.7 H (-2.0 to 3.0) mEq/L Blood Gas Modality [place] Inspired O2 36 % Sodium (136-145) mEq/L Potassium (3.5-4.5) mEq/L Chloride (98-109) mEq/L Carbon Dioxide (19-29) mEq/L BUN (7-20) mg/dL Creatinine (0.57-1.11) mg/dL Est GFR ( Amer) (> 60) Est GFR (Non-Af Amer) (> 60) BUN/Creatinine Ratio (6-26) Glucose (70-99) mg/dL Calculated Osmolality (280-300) Calcium (8.6-10.8) mg/dL Troponin I (0-0.03) ng/mL B-Natriuretic Peptide < 10 (0-100) pg/mL Urine Color Dark Yellow (Yellow) Urine Clarity Clear (Clear) Urine pH 5.5 (5.0-8.0) pH Units Ur Specific [place] 1.024 (1.010-1.025) Urine Protein Trace (Neg-Trace) mg/dL Urine Glucose (UA) Normal (Normal) mg/dL Urine Ketones Negative (Negative) mg/dL Urine Blood Negative (Negative) Urine Nitrite Negative (Negative) Urine Bilirubin Small H (Negative) Urine Urobilinogen Normal (Normal) mg/dL Ur Leukocyte Esterase Negative (Negative) Urine Microscopic RBC 0-3 (0-3) per hpf Urine Microscopic WBC 0-3 (0-3) per hpf Ur Squamous Epith Cells Many H (None-Few) per lpf Urine Bacteria None Seen (None-Few) per hpf Hyaline Casts None Seen (None-Few) per lpf Ur Culture Indicated? NO (NO) - Radiology Data Radiology results reviewed: Yes I reviewed the patient's radiology results. Chest X-Ray 11/29/16 10:51 IMPRESSION: 1. Pulmonary vascular congestion without cardiomegaly. 2. Bibasilar atelectasis. D/ / Sony Simmons MD / Sony Simmons MD Interpreting Provider: Sony Simmons MD - EKG Data EKG attestation: Yes I reviewed and interpreted this EKG. EKG results narrative: EKG taken 11/29/2016 at 1056 hrs. shows a sinus rhythm and ventricular rate of 68 beats a minute EKG shows ST depression in V4 and V5 no reciprocal changes. This is new when compared to previous EKG taken 11/20/2016 Attestation Statement - Attestation Attestation: I examined this patient and my medical decision-making was reviewed with the HEALTHCARE MANAGEMENT CONSULTANT/PA/Advanced Practice Nurse/Resident Physician. I agree with the documented findings, disposition and treatment plan as described except to the extent set forth below. Patient presents to the emergency department treatment and shortness of breath. Onset today.cough. History of COPD. and recent admission for the same. On examination she is in no respiratory distress. She is satting mid 90s on her home oxygen of 3 L. End expiratory wheezing on auscultation. Plan. steroids reevaluate. Patient feeling better. She is hypoxic on her ABG. She is admitted to medicine.
[2016-11-29] MEDS ORDERED: 0.9 % Sodium Chloride 1,000 ML IVC ONE (13:06)
[2016-11-29 13:31] LABS: Bilirubin,Urine Small (Negative); Blood,Urine Negative (Negative); Clarity,Urine Clear (Clear); Color,Urine Dark Yellow (Yellow); Glucose,Urine (UA) Normal (Normal); Ketones,Urine Negative (Negative); Leukocyte Esterase,Urine Negative (Negative); Nitrite,Urine Negative (Negative); PH,Urine 5.5 pH Units (5.0-8.0); Protein,Urine Trace mg/dL (Neg-Trace); Specific Gravity,Urine 1.024 (1.010-1.025); Urobilinogen,Urine Normal (Normal)
[2016-11-29 13:33] LABS: Bacteria,Urine None Seen per hpf (None-Few); Hyaline Casts,Urine None Seen per lpf (None-Few); RBC,Urine 0-3 per hpf (0-3); Squamous Epithelial Cell,Urine Many per lpf (None-Few); WBC,Urine 0-3 per hpf (0-3)
[2016-11-29 15:02] LABS: ABG Base Excess 5.7 mEq/L (-2.0 to 3.0); ABG HCO3 31.2 mEQ/L (21-27); ABG Oxygen Saturation 91 % (95-98); ABG PCO2 47 mmHg (35-45); ABG PH 7.43 pH Units (7.32-7.45); ABG PO2 60 mmHg (85-104); ABG TCO2 32.6 mEq/L (20-26); Blood Gas FiO2 36 %
[2016-11-29] MEDS ORDERED: Naloxone 0.4 MG/ML INJ IVP PRN (19:44)
[2016-11-29] MEDS ORDERED: Dextrose Gel 15 GM PO PRN ×2 (22:14)
[2016-11-29] MEDS ORDERED: *HR* Dextrose 50 % in Water (Syg) 50 ML SYRINGE IVP PRN (22:14)
[2016-11-29] MEDS ORDERED: D5% in Water 1,000 ML IV PRN (22:14)
[2016-11-29] MEDS ORDERED: Insulin LISPRO 300 UNITS/3 ML VIAL SQ SCH (22:15)
[2016-11-29] MEDS ORDERED: Albuterol 2.5 MG/3 ML NEBULIZER IH PRN (22:21)
--- NOTE | 2016-11-29 22:26 | Internal Med History&Physical ---
<Alejandrina Garcia - Last Filed: 11/29/16 22:27> Date of Encounter: 11/29/16 Time of Encounter: 08:30 Assessment and Plan (1) Acute exacerbation of chronic obstructive airways disease Current visit: No Status: Acute 1 patient presented with some hypoxia-with diminished breath sounds. We will continue with oxygen titrate to home settings. 2 continue bronchodilators 3 presently no wheezing noted will continue with home dose prednisone 4 encourage patient to stop smoking (2) Diabetes mellitus Current visit: Yes Status: Acute 1 Accu-Cheks before meals and at bedtime sliding scale basal and nutritional coverage goals to maintain postprandial less than 180 Qualifiers: Diabetes mellitus type: type 2 Diabetes mellitus complication status: without complication Diabetes mellitus correction insulin use: with terminal press operator use Qualified Code(s): E11.9 - Type 2 diabetes mellitus without complications ; Z79.4 - FDC (current) use of insulin (3) DVT prophylaxis Current visit: No Status: Acute 1 encourage early ambulation -JACOBY medina (4) CKD (chronic kidney disease), stage III Current visit: No Status: Chronic 1 creatinine is 1.21 which seems to be her baseline we will continue to monitor creatinine 2 we will avoid nephrotoxins no NSAIDs 3 maintain M AP greater than 60 4 monitor intake and output (5) HTN (hypertension) Current visit: No Status: Chronic 1 presently controlled we will continue with home medications: List maintain systolic less than 140 Qualifiers: Hypertension type: essential hypertension Qualified Code(s): I10 - Essential (primary) hypertension (6) Tobacco abuse Current visit: No Status: Chronic 1 encouraged patient to stop smoking-nicotine patch Internal Medicine - H&P: HPI Chief complaint: SOB Admitted From: Emergency Dept Plans for Post Hospital Care: Home History of present illness: Ms. Mclaughlin is a 66 year old female past medical history of COPD oxygen dependent diabetes CVA and CAD hypertension bipolar depression. The patient does not seem to be a reliable historian she was seen in the ER this a.m. she believes she has been here for 2 days information obtained from medical records. The patient has been experiencing shortness of breath which began prior to arrival to the emergency room around 11 this morning. She has been using oxygen as well as breathing treatments at home without any relief. She does report a nonproductive cough and dyspnea on exertion. According to ER records upon presentation patient has some wheezing with SPO2 of 92% on home oxygen setting of 3 L she was given DuoNeb and reassess and continue to have some wheezing and poor air movement. She was also given IV steroids ABG was obtained pH of 7.43 PCO2 47 PO2 68 bicarbonate 31 O2 sat 91%. Labwork was unremarkable there was no leukocytosis BNP was less than 10 troponin was 0.02. Chest x-ray revealed pulmonary vascular congestion without cardiomegaly and bibasilar atelectasis. She was admitted for further workup and evaluation. Presently the patient does not appear to be in any respiratory distress she denies any chest pain or shortness of breath at this time. She states several times during the assessment that she is ready to go home and wants to be discharged in the a.m. At present time she appears to be hemodynamically stable. I reviewed this case with Dr Kruse who agrees with plan Past Med Surg Social Fam HX - Past Medical History Medical history: arthritis, cancer, COPD, coronary artery disease, CVA, DVT, diabetes, hyperlipidemia, hypertension, malignancy, renal disease Psychiatric history: bipolar, depression - Past Surgical History Surgical History: , hysterectomy, other - Social History Smoking Status: Current every day smoker Smokeless Tobacco Status: No Alcohol use: none Drug use: none, marijuana - Family History Mother History Unknown: Yes Adopted: Yes Father History Unknown: Yes Adopted: Yes Living Status: Hx Family Cardiac Disorders: Yes Hx Family Respiratory Disorders: No Hx Family Cancer: No Hx Family GI Disorders: No Hx Family Endocrine Disorder: No Hx Family Neuromuscular Disorders: No Hx Family Neurologic Disorders: No Hx Family HEENT Disorders: No Hx Family Autoimmune Disorders: No Internal Medicine - H&P: Meds Albuterol Sulfate [Proair Respiclick] 2 puff IH Q4H PRN 09/29/15 [History] Fluticasone/Salmeterol [Advair 250-50 Diskus] 2 puff IH BID 09/29/15 [History] Gabapentin [Neurontin] 600 mg PO BID 09/29/15 [History] Insulin ASPART [NovoLOG] 8 unit SQ TIDWM 09/29/15 [History] Insulin Glargine [Lantus] 70 unit SQ QPM 09/29/15 [History] Lansoprazole [Prevacid] 30 mg PO DAILY 09/29/15 [History] Lisinopril [Zestril] 10 mg PO DAILY 09/29/15 [History] Tiotropium [Spiriva] 18 mcg IH DAILY 09/29/15 [History] Atorvastatin Calcium [Lipitor] 20 mg PO DAILY 11/21/16 [History] Duloxetine [Cymbalta] 30 mg PO BID 11/21/16 [History] PredniSONE 10 mg PO DAILY #80 tablet 11/22/16 [Rx] Albuterol Neb [Proventil Neb] 2.5 mg IH Q4H PRN 11/29/16 [History] Allergies aspirin [ASA] Allergy (Verified 11/29/16 10:50) Anaphylaxis Penicillins Allergy (Verified 11/29/16 10:50) Anaphylaxis All Systems PM: A 10-system review of systems was performed and is negative for pertinent findings except as documented above in the HPI. - Constitutional Constitutional: no chills, no fever(s), no night sweats - EENT Eyes: no change in vision, no discharge, no pain, no photophobia - Cardiovascular Cardiovascular ROS IM: no chest pain, no diaphoresis, no dyspnea, no lightheadedness, no palpitations, no syncope - Respiratory Respiratory: cough, dyspnea on exertion - Gastrointestinal Gastrointestinal: no abdominal pain, no diarrhea, no hematemesis, no hematochezia, no melena, no nausea, no vomiting - Genitourinary Genitourinary: no change in urinary stream, no dysuria, no flank pain, no hematuria - Musculoskeletal Musculoskeletal ROS IM: no numbness, no tingling - Integumentary Integumentary IM: no rash, no unusual bruising - Neurological Neurological ROS: no confusion, no convulsions, no focal weakness, no numbness, no tingling, no tremor(s) - Hematologic/Lymphatic Hematologic/Lymphatic: no easy bruising - Constitutional Vitals: Temp Pulse Resp BP Pulse Ox 98 F 71 18 123/90 92 L 11/29/16 17:32 11/29/16 17:32 11/29/16 17:32 11/29/16 17:32 11/29/16 17:32 General appearance: Present: A&O X 3 - Head Head exam: Present: atraumatic, normocephalic - Neck Neck exam general surgery: Present: supple, trachea midline. Absent: lymphadenopathy - Respiratory Respiratory exam: Present: rhonchi. Absent: accessory muscle use, rales, wheezes Additional comments: Scattered rhonchi-diminished in the bases bilaterally - Cardiovascular Cardiovascular exam: Present: RRR, +S1, +S2. Absent: diastolic murmur, gallop, rubs, systolic murmur - GI/Abdominal GI/Abdominal exam: Present: normal bowel sounds, soft, no peritoneal signs. Absent: distended, tenderness - Extremities Exam Extremities exam: Present: warm, radial pulses palpable and symetrical. Absent : calf tenderness, cyanotic, pedal edema - Neurological Exam Neurological exam: Present: CN II-XII intact, oriented X3, no focal deficits. Absent: pronater drift, facial droop, speech deficit - Skin Skin exam: Present: dry, intact Internal Med - H&P Results - Labs CBC & Chem 7: 11/29/16 11:09 11/29/16 11:09 - EKG Data EKG shows normal: sinus rhythm Rate: normal - Diagnostic Studies Chest x-ray Additional comments: Per radiology reading pulmonary vascular congestion without cardiomegaly bibasilar atelectasis - VTE Reasons for not Prescribing Prophylaxis: Treatment not Indicated - Low risk for VTE <Frederic Farris R - Last Filed: 11/30/16 04:24> Date of Encounter: 11/29/16 Time of Encounter: 20:30 Internal Medicine - H&P: HPI History of present illness: Ms. Mclaughlin is a 66 year old female All Systems PM: A 10-system review of systems was performed and is negative for pertinent findings except as documented above in the HPI. - Constitutional Vitals: Temp Pulse Resp BP Pulse Ox 97.9 F 65 20 153/82 94 L 11/30/16 00:38 11/30/16 00:38 11/30/16 00:38 11/30/16 00:38 11/30/16 00:38 Internal Med - H&P Results - Labs CBC & Chem 7: 11/29/16 22:11 11/29/16 22:11 Labs: Short CBC 11/29/16 Range/Units 22:11 WBC 4.3 (4.3-11.1) K/mcL Hgb 16.1 H (11.5-15.4) g/dL Hct 50.1 H (35.3-44.9) % Plt Count 162 (140-400) K/mcL Neutrophils # 3.7 (1.6-8.9) K/mcL BMP 11/29/16 22:11 Sodium 139 Potassium 4.1 Chloride 100 Carbon Dioxide 23 BUN 27 H Creatinine 1.25 H Glucose 320 H Calcium 9.0 - Attending Attestation I examined this patient and my medical decision-making was reviewed with the PROJECT GEOLOGIST/PA/Advanced Practice Nurse/Resident Physician. I agree with the documented findings, disposition and treatment plan as described except to the extent set forth below. I have personally evaluated the patient and discussed the details with HARVESTING MANAGER. Patient apparently presented to the hospital shortness of breath. She reports some improvement at the time of my evaluation. On examination occasional wheeze present. Chest x-ray showed bilateral atelectasis - start incentive spirometer. Continue treatment for suspected COPD exacerbation. Advised smoking cessation
[2016-11-29] MEDS ORDERED: Nicotine 14 MG PATCH.TD24 TD SCH (22:30)
[2016-11-29 22:43] LABS: Basophils % 0.2 %; Hematocrit 50.1 % (35.3-44.9); Hemoglobin 16.1 g/dL (11.5-15.4); Immature Granulocytes % 0.9 % (0-4); Lymphocytes # 0.5 K/mcL (0.6-4.6); Lymphocytes % 12.5 %; Mean Corpuscular HGB Conc 32.1 g/dL (31.6-35.5); Mean Corpuscular Hemoglobin 27.9 pg (28.0-33.3); Mean Corpuscular Volume 86.7 fL (83.0-100.0); Monocytes # 0.1 K/mcL (0.0-1.3); Monocytes % 1.2 %; Neutrophils # 3.7 K/mcL (1.6-8.9); Platelet Count 162 K/mcL (140-400); Red Blood Count 5.78 M/mcL (3.82-4.97); Red Cell Distribution Width 14.2 % (11.5-14.5); Segmented Neutrophils % 85.2 %
[2016-11-29] MEDS: Budesonide/Formoterol 80/4.5 MDI IH SCH (22:46)
[2016-11-29 22:55] LABS: Potassium 4.1 mEq/L (3.5-4.5)
[2016-11-30] MEDS ORDERED: Acetaminophen 325 MG TABLET PO ONE (00:32)
[2016-11-30] MEDS: Gabapentin 300 MG CAPSULE PO SCH ×2 (00:57→07:47)
[2016-11-30 06:36] LABS: BUN/Creatinine Ratio 28 (6-26); Blood Urea Nitrogen 27 mg/dL (7-20); Calcium 9.2 mg/dL (8.6-10.8); Carbon Dioxide 18 mEq/L (19-29); Chloride 102 mEq/L (98-109); Glucose 154 mg/dL (70-99); Osmolality,Calculated 292 (280-300); Sodium 137 mEq/L (136-145); eGFR For African Americans > 60 (> 60); eGFR For Non-African Americans 58 (> 60)
[2016-11-30 06:39] LABS: Potassium 4.8 mEq/L (3.5-4.5)
[2016-11-30 06:57] LABS: Hematocrit 47.5 % (35.3-44.9); Hemoglobin 15.3 g/dL (11.5-15.4); Immature Platelets 7.1 % (1.1-6.1); Mean Corpuscular HGB Conc 32.2 g/dL (31.6-35.5); Mean Corpuscular Hemoglobin 27.7 pg (28.0-33.3); Mean Corpuscular Volume 86.1 fL (83.0-100.0); Mean Platelet Volume 10.6 fL (9.4-12.4); Red Blood Count 5.52 M/mcL (3.82-4.97)
[2016-11-30] MEDS: Insulin LISPRO 300 UNITS/3 ML VIAL SQ SCH ×6 (07:47→18:02)
[2016-11-30] MEDS: Budesonide/Formoterol 80/4.5 MDI IH SCH (08:57)
[2016-11-30] MEDS ORDERED: Tiotropium 18 MCG inhalation IH SCH (09:00)
[2016-11-30] MEDS ORDERED: predniSONE 10 MG TABLET PO SCH (09:00)
[2016-11-30] MEDS ORDERED: Furosemide 40 MG/4 ML VIAL IV SCH (10:00)
--- NOTE | 2016-11-30 10:01 | Discharge Summary ---
Date of Encounter: 11/30/16 Time of Encounter: 09:58 - Discharge Diagnosis (1) CHF (congestive heart failure) Priority: Primary Status: Acute Comments: Acute and chronic respiratory failure likely secondary to acute diastolic CHF exacerbation Order echocardiogram and continue Lasix Qualifiers: Congestive heart failure type: unspecified congestive heart failure type Congestive heart failure chronicity: acute Qualified Code(s): I50.9 - Heart failure, unspecified (2) Diabetes mellitus Priority: Secondary Status: Acute Qualifiers: Diabetes mellitus type: type 2 Diabetes mellitus complication status: without complication 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 mellitus 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 insulin use: with buttermaker helper use Qualified Code(s): E11.9 - Type 2 diabetes mellitus without complications ; 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 (3) Acute worsening of stage 3 chronic kidney disease Priority: Primary Status: Acute (4) Tobacco abuse counseling Priority: Secondary Status: Acute (5) HLD (hyperlipidemia) Priority: Secondary Status: Chronic Qualifiers: Hyperlipidemia type: unspecified Qualified Code(s): E78.5 - Hyperlipidemia , unspecified (6) HTN (hypertension) Priority: Secondary Status: Chronic Qualifiers: Hypertension type: essential hypertension Qualified Code(s): I10 - Essential (primary) hypertension - Discharge Medications Prescriptions: Furosemide [Lasix] 40 mg PO DAILY #30 tablet Home Medications: Albuterol Sulfate [Proair Respiclick] 2 puff IH Q4H PRN 09/29/15 [History] Fluticasone/Salmeterol [Advair 250-50 Diskus] 2 puff IH BID 09/29/15 [History] Gabapentin [Neurontin] 600 mg PO BID 09/29/15 [History] Insulin ASPART [NovoLOG] 8 unit SQ TIDWM 09/29/15 [History] Insulin Glargine [Lantus] 70 unit SQ QPM 09/29/15 [History] Lansoprazole [Prevacid] 30 mg PO DAILY 09/29/15 [History] Lisinopril [Zestril] 10 mg PO DAILY 09/29/15 [History] Tiotropium [Spiriva] 18 mcg IH DAILY 09/29/15 [History] Atorvastatin Calcium [Lipitor] 20 mg PO DAILY 11/21/16 [History] Duloxetine [Cymbalta] 30 mg PO BID 11/21/16 [History] PredniSONE 10 mg PO DAILY #80 tablet 11/22/16 [Rx] Albuterol Neb [Proventil Neb] 2.5 mg IH Q4H PRN 11/29/16 [History] Furosemide [Lasix] 40 mg PO DAILY #30 tablet 11/30/16 [Rx] Allergies/Adverse Reactions: Allergies aspirin [ASA] Allergy (Verified 11/29/16 10:50) Anaphylaxis Penicillins Allergy (Verified 11/29/16 10:50) Anaphylaxis Procedures/tests Complete & Pending: Procedures Performed prior 72 hours Category Date Time Status EV echocardiogram Routine Y 11/30/16 09:58 Ordered Date of admission: 11/29/16 16:37 Primary care physician: PCP NO - Patient Status Disposition: Home, Self-Care Condition: Good Overall status at discharge: patient is progressing back to baseline - Discharge Instructions Follow Up With: NO,PCP [Primary Care Provider] - Additional Instructions: Follow with primary care physician within the next 7 days. Continue prednisone taper. Start Lasix. Might need fluid restriction. Follow report of the echocardiogram as outpatient. Smoking cessation counseling. - Diet and Activity Activity: wear oxygen at night Diet: diabetic diet Hospital course: Ms. Mclaughlin is a 66 year old female past medical history of COPD oxygen dependent using 3 L continuously, diabetes CVA and CAD hypertension bipolar depression. The patient has history of lung cancer but does not want to discuss that issue. CAD, CVA, DVT, diabetes type 2 insulin-dependent, hypertension, hyperlipidemia, tobacco and marijuana use. Recently discharged from the hospital on November 22 for COPD exacerbation. She was on a prednisone taper. Came to the ER complaining of 2 days of shortness of breath. The patient has been experiencing shortness of breath which began prior to arrival to the emergency room around 11 a.m. She was using oxygen as well as breathing treatments at home without any relief. She reported a nonproductive cough and dyspnea on exertion. According to ER records upon presentation patient has some wheezing with SPO2 of 92% on home oxygen setting of 3 L she was given DuoNeb and reassess and continue to have some wheezing and poor air movement. She was also given IV steroids ABG was obtained pH of 7.43 PCO2 47 PO2 68 bicarbonate 31 O2 sat 91%. Labwork was unremarkable there was no leukocytosis BNP was less than 10 troponin was 0.02. Chest x-ray revealed pulmonary vascular congestion without cardiomegaly and bibasilar atelectasis. She stated several times during the assessment that she is ready to go home and wants to be discharged in the a.m. The patient is a still very congested, Lasix was started, no echocardiogram was found on the records. We will order an echocardiogram prior to her discharge continue Lasix at home. Smoking cessation counseling given for 5 minutes Time spent discussing smoking cessation with patient: 3 to 10 minutes - Time Spent with Patient Total time spent providing and/or coordinating discharge services: Greater than 30 minutes (40 minutes) - Constitutional Vitals: Temp Pulse Resp BP Pulse Ox 97.5 F L 58 16 160/78 93 L 11/30/16 07:02 11/30/16 07:02 11/30/16 07:02 11/30/16 07:02 11/30/16 07:02 General appearance: Present: A&O X 3 - Head Head exam: Present: atraumatic, normocephalic - Eye Eye exam: Present: PERRL, conjuntiva pink, sclera anicteric Pupils: Present: PERRL - Neck Neck exam general surgery: Present: supple, trachea midline. Absent: lymphadenopathy - Respiratory Respiratory exam: Present: CTAB, rales (Bibasilar fine crackles). Absent: accessory muscle use, rhonchi, wheezes - Cardiovascular Cardiovascular exam: Present: RRR, +S1, +S2. Absent: diastolic murmur, gallop, rubs, systolic murmur - GI/Abdominal GI/Abdominal exam: Present: normal bowel sounds, soft, no peritoneal signs. Absent: distended, tenderness - Extremities Exam Extremities exam: Present: pedal edema (+1 pitting edema both lower extremities) , warm, radial pulses palpable and symetrical. Absent: calf tenderness, cyanotic - Neurological Exam Neurological exam: Present: CN II-XII intact, oriented X3, no focal deficits. Absent: pronater drift, facial droop, speech deficit - Skin Skin exam: Present: dry, intact - VTE Reasons for not Prescribing Prophylaxis: Treatment not Indicated - Low risk for VTE
[2016-11-30 11:26] VITALS: BP 135/75
--- NOTE | 2016-11-30 17:42 | ECHO - Doppler Report ---
Echocardiogram Name: Kari Mclaughlin Date of Study: 11/30/2016 Date: 1950 Ht: 67.0 in Medical Record#: [id number] Age: 66 Wt: 247.0 lb Gender: Female BSA: 2.21 Order #: [id number] Location: [facility] Room #: 2A25 Reading Physician: Madison Coburn DO Doll Surgeon: Kay Joseph RDCS Ordering Physician: Edmar Machado MD Primary Physician: Trace Davis MD Indications: Congestive heart failure Impressions: LVEF 60%. Normal left ventricular size and systolic function. There is evidence of mild diastolic dysfunction of the left ventricle. Dilated RV with normal function. No significant valvular dysfunction. No pulmonary hypertension. Left Ventricular Wall Motion: Rest Echo Findings All wall segments showed normal motion. Findings: Study Quality * Technically sub-optimal due to body habitus. ECG Findings * Normal sinus rhythm. Left Ventricle * LVEF 60%. * Normal LV chamber size, wall thickness and function. * Mild left ventricular diastolic dysfunction. Left Atrium * Normal left atrial size. Mitral Valve * Normal mitral valve structure. * No mitral stenosis. * No mitral regurgitation. Aortic Valve * No aortic regurgitation. * Aortic valve not well visualized. * No aortic stenosis. Tricuspid Valve * Tricuspid valve not well visualized. * No tricuspid regurgitation. Pulmonic Valve * Pulmonic valve is not well visualized. * No pulmonic stenosis. * No pulmonic regurgitation. Pulmonary Artery * Pulmonary artery not well visualized. Right Atrium * Normal right atrial size. Right Ventricle * Dilated RV with normal function. Interatrial Septum * No evidence of PFO by color Doppler. IVC * Normal IVC dimensions and inspiratory collapse. Pericardium * There is no pericardial effusion present. Aorta * Normally sized aortic root. History Hypertension Diabetes Hypercholesteremia Family History of CAD History of CAD/PTCA Measurements: BP: 135/ 75 2D Normal Values IVSd: .79 cm 0.6 - 1.0 cm LVIDd: 4.29 cm 3.7 - 5.6 cm LVPWd: .89 cm 0.6 - 1.1 cm LVIDs: 2.34 cm 1.5 - 3.6 cm AO: 2.20 cm < 4.0 cm LA: 3.20 cm 2.0 - 4.0cm %FS: 45.50 cm >25 % LA volume: 55 Mitral Valve Peak E:.61 m/sec Peak A:.89 m/sec E/A Ratio:0.7 Peak E' Lat Seferino:7.96 cm/s Peak E' Med Seferino:8.21 cm/s E/E' Lat Ratio:7.6 E/E' Med Ratio:7.4 Tricuspid Valve TV Regurg Peak Grad: 9.00mmHg TV Regurg Peak Seferino: 1.48m/sec Updated by Madison Coburn on 11/30/2016 5:35:54 PM electronically signed on 11/30/2016 5:36:37 PM with status of Final Wall Motion Todd: 1=Normal, 2=Hypokinesis, 3=Akinesis, 4=Dyskinesis, 5=Aneurysmal, 6=Hyperkinetic, X=Not Visualized (Blank)=Missing
--- NOTE | 2016-11-30 20:59 | Electrocardiograph Report ---
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
[2016-11-30] MEDS ORDERED: Insulin DETEMIR 100 UNIT/ML X5UNITS SQ SCH (21:00)
== END 2016-11-30 18:21 | disposition home or self-care (01) ==
LOC: EMEROO 10:48 → 2ANU 10:48 → SUATTDRO 16:37 → 2ANU 17:11
PROVIDERS: ADMIT Internal Medicine; ATTEND Internal Medicine

== ENCOUNTER 2017-01-18 19:00 | Inpatient (IN) ==
--- NOTE | 2017-01-18 19:28 | Emergency Department Note ---
Disposition Clinical Impression: Marijuana abuse, TYSON (acute kidney injury) Pneumonia Qualifiers: Pneumonia type: due to unspecified organism Laterality: right Lung location: lower lobe of lung Qualified Code(s): J18.1 - Lobar pneumonia, unspecified organism Stroke Qualifiers: CVA mechanism: unspecified Qualified Code(s): I63.9 - Cerebral infarction, unspecified Altered mental status Qualifiers: Altered mental status type: unspecified Qualified Code(s): R41.82 - Altered mental status, unspecified Disposition: Admitted As Inpatient Condition: Fair Referrals: NO,PCP [Primary Care Provider] - Forms: ED Satisfaction Letter Time of Disposition: 22:32 SOB HPI - General Chief Complaint: ED Shortness of Breath/Dyspnea Stated Complaint: short of breath Time Seen by Provider: 01/18/17 19:09 Source: patient, EMS Mode of arrival: EMS Limitations: other Nursing Notes Reviewed: Yes Vital Signs Reviewed: Yes - History of Present Illness Patient is a 66-year-old female with past medical history of COPD and requires 3 L of oxygen at home, CAD, hypertension, hyperlipidemia, diabetes. She presents today via EMS due to confusion and altered mental status. EMS states that the patient's roommate called EMS and stated that she was very confused today and combative. On exam, the patient has complaints of chest pain that is rated a 1-2 out of 10 located in the center of her chest. Otherwise, she denies any shortness of breath, nausea, vomiting, fevers, diarrhea, numbness, tingling, weakness, headache. She was able to tell me her name, where she was out but was unable to tell me the date.She was confused on exam with other questions. She does admit to arguing with her roommates earlier and states that she does not want to go back home. - Related Data Home Medications Medication Instructions Recorded Confirmed Albuterol Sulfate [Proair 2 puff IH Q4H PRN 09/29/15 11/29/16 Respiclick] Fluticasone/Salmeterol [Advair 2 puff IH BID 09/29/15 11/29/16 250-50 Diskus] Gabapentin [Neurontin] 600 mg PO BID 09/29/15 11/29/16 Insulin ASPART [NovoLOG] 8 unit SQ TIDWM 09/29/15 11/29/16 Insulin Glargine [Lantus] 70 unit SQ QPM 09/29/15 11/29/16 Lansoprazole [Prevacid] 30 mg PO DAILY 09/29/15 11/29/16 Lisinopril [Zestril] 10 mg PO DAILY 09/29/15 11/29/16 Tiotropium [Spiriva] 18 mcg IH DAILY 09/29/15 11/29/16 Atorvastatin Calcium [Lipitor] 20 mg PO DAILY 11/21/16 11/29/16 Duloxetine [Cymbalta] 30 mg PO BID 11/21/16 11/29/16 Albuterol Neb [Proventil Neb] 2.5 mg IH Q4H PRN 11/29/16 11/29/16 Previous Rx's Medication Instructions Recorded PredniSONE 10 mg PO DAILY #80 tablet 11/22/16 Furosemide [Lasix] 40 mg PO DAILY #30 tablet 11/30/16 Ondansetron ODT [Zofran ODT] 4 mg SL Q6HR #14 tab.rapdis 12/09/16 Allergies Allergy/AdvReac Type Severity Reaction Status Date / Time aspirin [ASA] Allergy Anaphylaxis Verified 11/29/16 10:50 bupropion [From Wellbutrin] Allergy Agitated Verified 12/07/16 21:19 Penicillins Allergy Anaphylaxis Verified 11/29/16 10:50 Sulfa (Sulfonamide Allergy Vomiting Verified 12/07/16 21:19 Antibiotics) Constitutional: Denies: fever Eyes: Denies: eye pain ENT ED: Denies: ear pain Cardiovascular: Reports: chest pain. Denies: palpitations Respiratory: Denies: cough, dyspnea, wheezes Gastrointestinal: Denies: abdominal pain, nausea, vomiting, diarrhea Genitourinary: Denies: urgency, dysuria, frequency, hematuria Musculoskeletal: Denies: back pain Integumentary: Denies: rash Neurological: Denies: headache Psychiatric: Denies: anxiety Past Medical History - Past Medical History Attestation: Yes The following information was validated with the patient. Medical history: Reports: arthritis, cancer, COPD, coronary artery disease, CVA , DVT, diabetes, hyperlipidemia, hypertension, malignancy, renal disease Surgical history: Reports: , hysterectomy, other Psychiatric history: Reports: bipolar, depression - Social History Smoking Status: Current every day smoker Smokeless Tobacco Status: No Alcohol use: Reports: none Drug use: Reports: none Physical Exam Patient was 88% on room air. She has increased and 92% while on 3 L nasal cannula. The rest of the vitals were within normal limits. Patient's confused , has wheezing in bilateral lower lobes. We will obtain altered mental status workup, cardiac workup especially due to the chest pain complaint. - General Limitations: other General appearance: alert - Head Head exam: atraumatic, normocephalic, normal inspection - Eye Eye exam: Present: normal appearance, PERRL, EOMI - ENT ENT exam: normal exam, normal oropharynx, mucous membranes moist - Neck Neck exam: Present: normal inspection, full ROM, trachea midline - Chest Chest inspection: Present: normal inspection, symmetric chest wall rise - Respiratory Respiratory exam: Present: wheezes (Wheezes and crackles heard in bilateral lower lobes) - Cardiovascular Cardiovascular exam: Present: regular rate, normal rhythm, normal heart sounds - Abdominal Exam Abdominal exam: Present: soft, Non-Tender. Absent: tenderness, distention, guarding, rebound, rigidity - Extremities Exam Extremities exam: Present: normal inspection, full ROM. Absent: tenderness, pedal edema - Back Exam Back exam: Present: normal inspection, full ROM. Absent: tenderness - Neurological Exam Neurological exam: Present: alert, other (Oriented 2. Confused) - Psychiatric Psychiatric exam: Present: normal mood, flat affect, other - Skin Skin exam: Present: warm, dry, intact, normal color Course Course Narrative: Patient was 88% on room air. She has increased and 92% while on 3 L nasal cannula. The rest of the vitals were within normal limits. Patient's confused , has wheezing in bilateral lower lobes. We will obtain altered mental status workup, cardiac workup especially due to the chest pain complaint. 21:09 labs showed acute kidney injury. CT of the head shows old stable infarction of the left parietal lobe. However, there is a low density in the left malinda that may represent a small infarction but is age indeterminant. Patient will need admitted and further imaging/MRI for evaluation. Chest x-ray shows right basilar airspace disease concerning for atelectasis versus early pneumonia. We will start the patient on ertapenem due to penicillin allergy, vancomycin, Levaquin. Urine drug screen positive for marijuana. We will admit the patient for TYSON, pneumonia, altered mental status, stroke, marijuana abuse. 22:31 Dr. Farris wanted ABG before admitting patient. This was ordered and pH was 7.39, CO2 elevated in the 60s she has been chronically elevated in the past. This information was relayed to the hospitalist, he has accepted the patient for admission. Chest X-Ray 01/18/17 19:10 IMPRESSION: Patchy right basilar airspace disease. This could represent atelectasis or early pneumonia. D/ / Mario Mckee MD / Mario Mckee MD Interpreting Provider: Mario Mckee MD Head CT 01/18/17 19:11 IMPRESSION: Old but stable infarction, left parasagittal parietal lobe and adjacent white matter. Subtle low-density left malinda. Most likely represents a small infarction but is of indeterminate age. Further evaluation with MRI recommended. D/ / Mario Mckee MD / Mario Mckee MD Interpreting Provider: Mario Mckee MD Vital Signs Temperature 98.4 F 01/18/17 19:03 Pulse Rate 80 01/18/17 19:03 Respiratory Rate 20 01/18/17 19:03 Blood Pressure 150/81 01/18/17 19:03 O2 Sat by Pulse Oximetry 91 L 01/18/17 19:03 Temperature 98.4 F 01/18/17 19:03 Pulse Rate 58 01/18/17 22:05 Respiratory Rate 18 01/18/17 22:05 Blood Pressure 136/72 01/18/17 20:44 O2 Sat by Pulse Oximetry 94 L 01/18/17 22:05 Oxygen Delivery Oxygen Delivery Nasal Cannula Shortness of Breath/Dyspnea - [facility] Narrative Medical decision making narrative: Patient was 88% on room air. She has increased and 92% while on 3 L nasal cannula. The rest of the vitals were within normal limits. Patient's confused , has wheezing in bilateral lower lobes. We will obtain altered mental status workup, cardiac workup especially due to the chest pain complaint. 21:09 labs showed acute kidney injury. CT of the head shows old stable infarction of the left parietal lobe. However, there is a low density in the left malinda that may represent a small infarction but is age indeterminant. Patient will need admitted and further imaging/MRI for evaluation. Chest x-ray shows right basilar airspace disease concerning for atelectasis versus early pneumonia. We will start the patient on ertapenem due to penicillin allergy, vancomycin, Levaquin. Urine drug screen positive for marijuana. We will admit the patient for TYSON, pneumonia, altered mental status, stroke, marijuana abuse. 22:31 Dr. Farris wanted ABG before admitting patient. This was ordered and pH was 7.39, CO2 elevated in the 60s she has been chronically elevated in the past. This information was relayed to the hospitalist, he has accepted the patient for admission. - Medical Records Medical records reviewed: Yes I reviewed the patient's medical records. - Lab Data Lab results reviewed: Yes I reviewed the patient's lab results. Result diagrams: 01/18/17 19:46 01/18/17 19:46 Lab Results 01/18/17 01/18/17 01/18/17 Range/Units 19:39 19:46 19:46 WBC 6.1 (4.3-11.1) K/mcL RBC 5.36 H (3.82-4.97) M/mcL Hgb 14.9 (11.5-15.4) g/dL Hct 47.4 H (35.3-44.9) % MCV 88.4 (83.0-100.0) fL MCH 27.8 L (28.0-33.3) pg MCHC 31.4 L (31.6-35.5) g/dL RDW 13.7 (11.5-14.5) % Plt Count 262 (140-400) K/mcL MPV 9.7 (9.4-12.4) fL Immature Gran % 0.2 (0-4) % Seg Neutrophils % 65.5 % Lymphocytes % 25.9 % Monocytes % 6.1 % Eosinophils % 1.6 % Basophils % 0.7 % Neutrophils # 4.0 (1.6-8.9) K/mcL Lymphocytes # 1.6 (0.6-4.6) K/mcL Monocytes # 0.4 (0.0-1.3) K/mcL Eosinophils # 0.1 (0.0-0.6) K/mcL Basophils # 0.0 (0.0-0.2) K/mcL PT (9.4-12.1) Seconds INR APTT (26.0-36.0) Seconds ABG pH (7.32-7.45) pH Units ABG pCO2 (35-45) mmHg ABG pO2 (85-104) mmHg ABG HCO3 (21-27) mEQ/L ABG Total CO2 (20-26) mEq/L ABG O2 Saturation (95-98) % ABG Base Excess (-2.0 to 3.0) mEq/L Liter Flow L/MIN Blood Gas Modality Inspired O2 % Sodium 139 (136-145) mEq/L Potassium 4.1 (3.5-4.5) mEq/L Chloride 99 (98-109) mEq/L Carbon Dioxide 30 H (19-29) mEq/L BUN 14 (7-20) mg/dL Creatinine 1.51 H (0.57-1.11) mg/dL Est GFR ( Amer) 42 L (> 60) Est GFR (Non-Af Amer) 34 L (> 60) BUN/Creatinine Ratio 9 (6-26) Glucose 169 H (70-99) mg/dL POC Glucose 155 H (58-89) Calculated Osmolality 292 (280-300) Calcium 8.6 (8.6-10.8) mg/dL Total Bilirubin (0.2-1.2) mg/dL Direct Bilirubin (0.0-0.5) mg/dL Indirect Bilirubin (0.0-1.2) mg/dL AST (5-34) Units/L ALT (0-55) Units/L Alkaline Phosphatase (38-126) Units/L Troponin I (0-0.03) ng/mL B-Natriuretic Peptide (0-100) pg/mL Serum Total Protein (6.0-8.3) g/dL Albumin (3.5-5.0) g/dL Globulin (2.4-3.5) g/dL Albumin/Globulin Ratio (1.1-2.2) Urine Color (Yellow) Urine Clarity (Clear) Urine pH (5.0-8.0) pH Units Ur Specific [place] (1.010-1.025) Urine Protein (Neg-Trace) mg/dL Urine Glucose (UA) (Normal) mg/dL Urine Ketones (Negative) mg/dL Urine Blood (Negative) Urine Nitrite (Negative) Urine Bilirubin (Negative) Urine Urobilinogen (Normal) mg/dL Ur Leukocyte Esterase (Negative) Urine Microscopic RBC (0-3) per hpf Urine Microscopic WBC (0-3) per hpf Ur Squamous Epith Cells (None-Few) per lpf Urine Bacteria (None-Few) per hpf Hyaline Casts (None-Few) per lpf Ur Culture Indicated? (NO) Urine Opiates Screen (Tqvgft=695) ng/mL Ur Barbiturates Screen (Izgoyg=156) ng/mL Ur Phencyclidine Scrn (Cutoff=25) ng/mL Ur Amphetamines Screen (Ctzlfk=2563) ng/mL U Benzodiazepines Scrn (Nhdvxs=010) ng/mL Urine Cocaine Screen (Cutoff= 300) ng/mL U Marijuana (THC) Screen (Cutoff = 50) ng/mL Ethyl Alcohol (0-10) mg/dL 01/18/17 01/18/17 01/18/17 Range/Units 19:46 19:46 19:46 WBC (4.3-11.1) K/mcL RBC (3.82-4.97) M/mcL Hgb (11.5-15.4) g/dL Hct (35.3-44.9) % MCV (83.0-100.0) fL MCH (28.0-33.3) pg MCHC (31.6-35.5) g/dL RDW (11.5-14.5) % Plt Count (140-400) K/mcL MPV (9.4-12.4) fL Immature Gran % (0-4) % Seg Neutrophils % % Lymphocytes % % Monocytes % % Eosinophils % % Basophils % % Neutrophils # (1.6-8.9) K/mcL Lymphocytes # (0.6-4.6) K/mcL Monocytes # (0.0-1.3) K/mcL Eosinophils # (0.0-0.6) K/mcL Basophils # (0.0-0.2) K/mcL PT 12.9 H (9.4-12.1) Seconds INR 1.2 APTT 39.7 H (26.0-36.0) Seconds ABG pH (7.32-7.45) pH Units ABG pCO2 (35-45) mmHg ABG pO2 (85-104) mmHg ABG HCO3 (21-27) mEQ/L ABG Total CO2 (20-26) mEq/L ABG O2 Saturation (95-98) % ABG Base Excess (-2.0 to 3.0) mEq/L Liter Flow L/MIN Blood Gas Modality Inspired O2 % Sodium (136-145) mEq/L Potassium (3.5-4.5) mEq/L Chloride (98-109) mEq/L Carbon Dioxide (19-29) mEq/L BUN (7-20) mg/dL Creatinine (0.57-1.11) mg/dL Est GFR ( Amer) (> 60) Est GFR (Non-Af Amer) (> 60) BUN/Creatinine Ratio (6-26) Glucose (70-99) mg/dL POC Glucose (58-89) Calculated Osmolality (280-300) Calcium (8.6-10.8) mg/dL Total Bilirubin 0.4 (0.2-1.2) mg/dL Direct Bilirubin 0.2 (0.0-0.5) mg/dL Indirect Bilirubin 0.2 (0.0-1.2) mg/dL AST 9 (5-34) Units/L ALT 7 (0-55) Units/L Alkaline Phosphatase 105 (38-126) Units/L Troponin I (0-0.03) ng/mL B-Natriuretic Peptide 38 (0-100) pg/mL Serum Total Protein 6.9 (6.0-8.3) g/dL Albumin 2.9 L (3.5-5.0) g/dL Globulin 4.0 H (2.4-3.5) g/dL Albumin/Globulin Ratio 0.7 L (1.1-2.2) Urine Color (Yellow) Urine Clarity (Clear) Urine pH (5.0-8.0) pH Units Ur Specific [place] (1.010-1.025) Urine Protein (Neg-Trace) mg/dL Urine Glucose (UA) (Normal) mg/dL Urine Ketones (Negative) mg/dL Urine Blood (Negative) Urine Nitrite (Negative) Urine Bilirubin (Negative) Urine Urobilinogen (Normal) mg/dL Ur Leukocyte Esterase (Negative) Urine Microscopic RBC (0-3) per hpf Urine Microscopic WBC (0-3) per hpf Ur Squamous Epith Cells (None-Few) per lpf Urine Bacteria (None-Few) per hpf Hyaline Casts (None-Few) per lpf Ur Culture Indicated? (NO) Urine Opiates Screen (Gduncc=265) ng/mL Ur Barbiturates Screen (Vhalzj=428) ng/mL Ur Phencyclidine Scrn (Cutoff=25) ng/mL Ur Amphetamines Screen (Slzvdd=7316) ng/mL U Benzodiazepines Scrn (Tdfjsv=113) ng/mL Urine Cocaine Screen (Cutoff= 300) ng/mL U Marijuana (THC) Screen (Cutoff = 50) ng/mL Ethyl Alcohol < 10 (0-10) mg/dL 01/18/17 01/18/17 01/18/17 Range/Units 19:46 20:05 20:05 WBC (4.3-11.1) K/mcL RBC (3.82-4.97) M/mcL Hgb (11.5-15.4) g/dL Hct (35.3-44.9) % MCV (83.0-100.0) fL MCH (28.0-33.3) pg MCHC (31.6-35.5) g/dL RDW (11.5-14.5) % Plt Count (140-400) K/mcL MPV (9.4-12.4) fL Immature Gran % (0-4) % Seg Neutrophils % % Lymphocytes % % Monocytes % % Eosinophils % % Basophils % % Neutrophils # (1.6-8.9) K/mcL Lymphocytes # (0.6-4.6) K/mcL Monocytes # (0.0-1.3) K/mcL Eosinophils # (0.0-0.6) K/mcL Basophils # (0.0-0.2) K/mcL PT (9.4-12.1) Seconds INR APTT (26.0-36.0) Seconds ABG pH (7.32-7.45) pH Units ABG pCO2 (35-45) mmHg ABG pO2 (85-104) mmHg ABG HCO3 (21-27) mEQ/L ABG Total CO2 (20-26) mEq/L ABG O2 Saturation (95-98) % ABG Base Excess (-2.0 to 3.0) mEq/L Liter Flow L/MIN Blood Gas Modality Inspired O2 % Sodium (136-145) mEq/L Potassium (3.5-4.5) mEq/L Chloride (98-109) mEq/L Carbon Dioxide (19-29) mEq/L BUN (7-20) mg/dL Creatinine (0.57-1.11) mg/dL Est GFR ( Amer) (> 60) Est GFR (Non-Af Amer) (> 60) BUN/Creatinine Ratio (6-26) Glucose (70-99) mg/dL POC Glucose (58-89) Calculated Osmolality (280-300) Calcium (8.6-10.8) mg/dL Total Bilirubin (0.2-1.2) mg/dL Direct Bilirubin (0.0-0.5) mg/dL Indirect Bilirubin (0.0-1.2) mg/dL AST (5-34) Units/L ALT (0-55) Units/L Alkaline Phosphatase (38-126) Units/L Troponin I 0.01 (0-0.03) ng/mL B-Natriuretic Peptide (0-100) pg/mL Serum Total Protein (6.0-8.3) g/dL Albumin (3.5-5.0) g/dL Globulin (2.4-3.5) g/dL Albumin/Globulin Ratio (1.1-2.2) Urine Color Yellow (Yellow) Urine Clarity Cloudy A (Clear) Urine pH 6.0 (5.0-8.0) pH Units Ur Specific [place] 1.016 (1.010-1.025) Urine Protein Negative (Neg-Trace) mg/dL Urine Glucose (UA) Normal (Normal) mg/dL Urine Ketones Negative (Negative) mg/dL Urine Blood Negative (Negative) Urine Nitrite Negative (Negative) Urine Bilirubin Negative (Negative) Urine Urobilinogen Normal (Normal) mg/dL Ur Leukocyte Esterase Negative (Negative) Urine Microscopic RBC 5-15 H (0-3) per hpf Urine Microscopic WBC 3-5 H (0-3) per hpf Ur Squamous Epith Cells Many H (None-Few) per lpf Urine Bacteria Moderate H (None-Few) per hpf Hyaline Casts None Seen (None-Few) per lpf Ur Culture Indicated? NO (NO) Urine Opiates Screen Negative (Ernrje=457) ng/mL Ur Barbiturates Screen Negative (Kgmvyn=234) ng/mL Ur Phencyclidine Scrn Negative (Cutoff=25) ng/mL Ur Amphetamines Screen Negative (Cpzjlb=3352) ng/mL U Benzodiazepines Scrn Negative (Rrsiyp=204) ng/mL Urine Cocaine Screen Negative (Cutoff= 300) ng/mL U Marijuana (THC) Screen Positive H (Cutoff = 50) ng/mL Ethyl Alcohol (0-10) mg/dL 01/18/17 Range/Units 21:54 WBC (4.3-11.1) K/mcL RBC (3.82-4.97) M/mcL Hgb (11.5-15.4) g/dL Hct (35.3-44.9) % MCV (83.0-100.0) fL MCH (28.0-33.3) pg MCHC (31.6-35.5) g/dL RDW (11.5-14.5) % Plt Count (140-400) K/mcL MPV (9.4-12.4) fL Immature Gran % (0-4) % Seg Neutrophils % % Lymphocytes % % Monocytes % % Eosinophils % % Basophils % % Neutrophils # (1.6-8.9) K/mcL Lymphocytes # (0.6-4.6) K/mcL Monocytes # (0.0-1.3) K/mcL Eosinophils # (0.0-0.6) K/mcL Basophils # (0.0-0.2) K/mcL PT (9.4-12.1) Seconds INR APTT (26.0-36.0) Seconds ABG pH 7.39 (7.32-7.45) pH Units ABG pCO2 63 H (35-45) mmHg ABG pO2 63 L (85-104) mmHg ABG HCO3 38.1 H (21-27) mEQ/L ABG Total CO2 40.0 H (20-26) mEq/L ABG O2 Saturation 92 L (95-98) % ABG Base Excess 10.4 H (-2.0 to 3.0) mEq/L Liter Flow 4 L/MIN Blood Gas Modality [place] Inspired O2 36 % Sodium (136-145) mEq/L Potassium (3.5-4.5) mEq/L Chloride (98-109) mEq/L Carbon Dioxide (19-29) mEq/L BUN (7-20) mg/dL Creatinine (0.57-1.11) mg/dL Est GFR ( Amer) (> 60) Est GFR (Non-Af Amer) (> 60) BUN/Creatinine Ratio (6-26) Glucose (70-99) mg/dL POC Glucose (58-89) Calculated Osmolality (280-300) Calcium (8.6-10.8) mg/dL Total Bilirubin (0.2-1.2) mg/dL Direct Bilirubin (0.0-0.5) mg/dL Indirect Bilirubin (0.0-1.2) mg/dL AST (5-34) Units/L ALT (0-55) Units/L Alkaline Phosphatase (38-126) Units/L Troponin I (0-0.03) ng/mL B-Natriuretic Peptide (0-100) pg/mL Serum Total Protein (6.0-8.3) g/dL Albumin (3.5-5.0) g/dL Globulin (2.4-3.5) g/dL Albumin/Globulin Ratio (1.1-2.2) Urine Color (Yellow) Urine Clarity (Clear) Urine pH (5.0-8.0) pH Units Ur Specific [place] (1.010-1.025) Urine Protein (Neg-Trace) mg/dL Urine Glucose (UA) (Normal) mg/dL Urine Ketones (Negative) mg/dL Urine Blood (Negative) Urine Nitrite (Negative) Urine Bilirubin (Negative) Urine Urobilinogen (Normal) mg/dL Ur Leukocyte Esterase (Negative) Urine Microscopic RBC (0-3) per hpf Urine Microscopic WBC (0-3) per hpf Ur Squamous Epith Cells (None-Few) per lpf Urine Bacteria (None-Few) per hpf Hyaline Casts (None-Few) per lpf Ur Culture Indicated? (NO) Urine Opiates Screen (Jhrdbf=522) ng/mL Ur Barbiturates Screen (Hmqxyo=338) ng/mL Ur Phencyclidine Scrn (Cutoff=25) ng/mL Ur Amphetamines Screen (Rchcji=7399) ng/mL U Benzodiazepines Scrn (Rcmwfe=526) ng/mL Urine Cocaine Screen (Cutoff= 300) ng/mL U Marijuana (THC) Screen (Cutoff = 50) ng/mL Ethyl Alcohol (0-10) mg/dL - Radiology Data Radiology results reviewed: Yes I reviewed the patient's radiology results. Chest X-Ray 01/18/17 19:10 IMPRESSION: Patchy right basilar airspace disease. This could represent atelectasis or early pneumonia. D/ / Mario Mckee MD / Mario Mckee MD Interpreting Provider: Mario Mckee MD Head CT 01/18/17 19:11 IMPRESSION: Old but stable infarction, left parasagittal parietal lobe and adjacent white matter. Subtle low-density left malinda. Most likely represents a small infarction but is of indeterminate age. Further evaluation with MRI recommended. D/ / Mario Mckee MD / Mario Mckee MD Interpreting Provider: Mario Mckee MD - EKG Data EKG attestation: Yes I reviewed and interpreted this EKG. EKG results narrative: 01/18/2017 at 19:09. Sinus rhythm. Rate 77. MT interval 117. QRS 80. QTC 425. Normal axis. No acute ST elevation or depression. Unchanged from previous EKG on 03/28/2010 [facility] - [facility] Situation: Demographics, MOA Background: Presenting Complaint, Relevant PMH, Meds, & Allergies Assessment: Vital Signs, Course and respsone to treatment, Exam Concerns, Patient/Family Expectation, Pertinant Lab Results, Outstanding Labs Recommendation: Barrier(s) to disposition, Recommendation based on pending studies, treatments, or consults [facility] Report Given to: Brenton SKennaBKennaAOlga Repor Time: 22:32 Attestation Statement - Attestation Attestation: I examined this patient and my medical decision-making was reviewed with the LEASING SPECIALIST/PA/Advanced Practice Nurse/Resident Physician. I agree with the documented findings, disposition and treatment plan as described except to the extent set forth below. Patient emergency department with the chief complaint of feeling like her head is jumbled. She lives with her family who called EMS stating placed in a prison. She is confused. Patient is to being confused. She missed the finding with her family. She states she does not live with them but she does not know where she lives. On exam she is awake alert. Crying. Right conjunctiva injected. Patient states this is chronic. Lungs clear. She is noted to be hypoxic on room air. Plan. Patient placed on her home 3 L of oxygen. Now about 92%. Altered mental status workup. Patient with a possible infarct in the mal[place]. Infiltrate on chest x-ray. Acute kidney injury. Will admit.
[2017-01-18 19:52] LABS: Basophils % 0.7 %; Eosinophils # 0.1 K/mcL (0.0-0.6); Eosinophils % 1.6 %; Hematocrit 47.4 % (35.3-44.9); Hemoglobin 14.9 g/dL (11.5-15.4); Immature Granulocytes % 0.2 % (0-4); Lymphocytes # 1.6 K/mcL (0.6-4.6); Lymphocytes % 25.9 %; Mean Corpuscular HGB Conc 31.4 g/dL (31.6-35.5); Mean Corpuscular Hemoglobin 27.8 pg (28.0-33.3); Mean Corpuscular Volume 88.4 fL (83.0-100.0); Mean Platelet Volume 9.7 fL (9.4-12.4); Monocytes # 0.4 K/mcL (0.0-1.3); Monocytes % 6.1 %; Platelet Count 262 K/mcL (140-400); Red Blood Count 5.36 M/mcL (3.82-4.97); Red Cell Distribution Width 13.7 % (11.5-14.5); Segmented Neutrophils % 65.5 %
[2017-01-18 20:00] LABS: INR 1.2; Prothrombin Time 12.9 Seconds (9.4-12.1)
[2017-01-18 20:03] LABS: Activated Partial Thrombo Time 39.7 Seconds (26.0-36.0)
[2017-01-18 20:06] LABS: Calcium 8.6 mg/dL (8.6-10.8); Potassium 4.1 mEq/L (3.5-4.5)
[2017-01-18 20:08] LABS: Alanine Aminotransferase 7 Units/L (0-55); Albumin 2.9 g/dL (3.5-5.0); Albumin/Globulin Ratio 0.7 (1.1-2.2); Alkaline Phosphatase 105 Units/L (38-126); Aspartate Amino Transferase 9 Units/L (5-34); Bilirubin,Direct 0.2 mg/dL (0.0-0.5); Bilirubin,Indirect 0.2 mg/dL (0.0-1.2); Bilirubin,Total 0.4 mg/dL (0.2-1.2); Total Protein 6.9 g/dL (6.0-8.3)
[2017-01-18 20:14] LABS: Bilirubin,Urine Negative (Negative); Blood,Urine Negative (Negative); Clarity,Urine Cloudy (Clear); Color,Urine Yellow (Yellow); Glucose,Urine (UA) Normal (Normal); Ketones,Urine Negative (Negative); Leukocyte Esterase,Urine Negative (Negative); Nitrite,Urine Negative (Negative); Protein,Urine Negative (Neg-Trace); Specific Gravity,Urine 1.016 (1.010-1.025); Urobilinogen,Urine Normal (Normal)
[2017-01-18 20:14] LABS: Ethanol < 10 mg/dL (0-10)
[2017-01-18 20:15] LABS: Bacteria,Urine Moderate per hpf (None-Few); Hyaline Casts,Urine None Seen per lpf (None-Few); Squamous Epithelial Cell,Urine Many per lpf (None-Few)
[2017-01-18 20:19] LABS: Amphetamine Screen,Urine Negative ng/mL (Cutoff=1000); Barbiturate Screen,Urine Negative ng/mL (Cutoff=200); Benzodiazepines Screen,Urine Negative ng/mL (Cutoff=200); Cannabinoid Screen,Urine Positive ng/mL (Cutoff = 50); Cocaine Screen,Urine Negative ng/mL (Cutoff= 300); Opiate Screen,Urine Negative ng/mL (Cutoff=300); Phencyclidine Screen,Urine Negative ng/mL (Cutoff=25)
[2017-01-18] MEDS ORDERED: 0.9 % Sodium Chloride 1,000 ML IVC ONE (20:35)
[2017-01-18] MEDS ORDERED: Vancomycin 1,000 MG in D5% in Water 250 ML IV ONE (21:02)
[2017-01-18] MEDS ORDERED: Levofloxacin 500 MG/100 ML 500 MG/100 ML BAG IVPB ONE (21:04)
[2017-01-18] MEDS ORDERED: Ertapenem 1,000 MG in 0.9 % Sodium Chloride Mini Bag 100 ML IVPB STA (21:04)
[2017-01-18 22:01] LABS: ABG Base Excess 10.4 mEq/L (-2.0 to 3.0); ABG HCO3 38.1 mEQ/L (21-27); ABG Oxygen Saturation 92 % (95-98); ABG PCO2 63 mmHg (35-45); ABG PH 7.39 pH Units (7.32-7.45); ABG PO2 63 mmHg (85-104)
[2017-01-18 22:02] LABS: Blood Gas FiO2 36 %; Blood Gas Liter Flow 4 L/MIN
--- NOTE | 2017-01-19 00:06 | Internal Med History&Physical ---
Date of Encounter: 01/19/17 Time of Encounter: 00:00 Assessment and Plan (1) Altered mental status Current visit: Yes Status: Acute Likely multifactorial in setting of patient history of COPD and CO2 retention with ongoing use of marijuana. Additionally, there is a concern for possible ischemic stroke, head CT revealed old infarcts, a brain MRI was recommended. Qualifiers: Altered mental status type: delirium Qualified Code(s): R41.0 - Disorientation, unspecified (2) TYSON (acute kidney injury) Current visit: Yes Status: Acute We will avoid nephrotoxic agents. We will give her gentle hydration. Patient has an underlying diastolic heart failure. (3) Altered mental status Current visit: Yes Status: Acute See above. Qualifiers: Altered mental status type: unspecified Qualified Code(s): R41.82 - Altered mental status, unspecified (4) Marijuana abuse Current visit: Yes Status: Acute (5) Stroke Current visit: Yes Status: Suspected We will obtain a brain MRI. Qualifiers: CVA mechanism: unspecified Qualified Code(s): I63.9 - Cerebral infarction, unspecified (6) DVT prophylaxis Current visit: No Status: Acute DVT prophylaxis with heparin. (7) Diabetes mellitus Current visit: No Status: Acute We will obtain a hemoglobin A1c level. Monitor fingerstick. Insulin therapy with regular insulin sliding scale. Glucose upon admission was 169. 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 According to ER documentation there was a complaint of chest pain initially, patient was also confused at that time. Troponin within normal limits upon admission. We will monitor her troponin levels, patient denies chest pain at this point. Qualifiers: Chest pain type: precordial pain Qualified Code(s): R07.2 - Precordial pain Internal Medicine - H&P: HPI Chief complaint: Confusion Admitted From: Emergency Dept Plans for Post Hospital Care: Home History of present illness: Ms. Mclaughlin is a 66 year old female with medical history of hypertension, CVA, chronic active smoker, marijuana use, legally blind in the right eye, COPD on long-term oxygen therapy. Patient presented to our emergency department with complaints of changes in her mental status, she was confused and apparently had an argument with her roommates. The patient denies chest pain, shortness of breath, fever, chills, dysuria, diarrhea, abdominal pain. Initial evaluation in the emergency department revealed a CO2 retention with a PCO2 of 53 and pH of 7.39. This only mild acute kidney injury with a creatinine of 1.51. Chest x -ray revealed a patchy right basilar airspace disease, report was suspicious for atelectasis versus pneumonia. Due to acute mental changes she underwent a head CT which revealed old but stable infarct in the left parasagittal parietal lobe and adjacent white matter, a brain MRI was recommended. The patient states that he has not been taking any medications since the last 10 days other than TYLENOL PM. SHE TAKES ASPIRIN OCCASIONALLY. States THAT SHE IS NOT TAKING ANY MEDICATIONS ON A REGULAR BASIS. THE PATIENT STATES THAT THE LAST TIME SHE SMOKED MARIJUANA WAS ABOUT A WEEK AGO. She denies history of sleep apnea. The urine toxicology was positive for marijuana. During my encounter with the patient she was not in distress, alert, she was oriented in time, place and person. The patient was admitted for further management and workup. Past Med Surg Social Fam HX - Past Medical History Medical history: arthritis, cancer, COPD, coronary artery disease, CVA, DVT, diabetes, hyperlipidemia, hypertension, malignancy, renal disease Psychiatric history: bipolar, depression - Past Surgical History Surgical History: , hysterectomy, other - Social History Smoking Status: Current every day smoker Smokeless Tobacco Status: No Alcohol use: none Drug use: none - Family History Mother Adopted: Yes Father Adopted: Yes Family Member Ethnicity: Non- Living Status: Hx Family Cardiac Disorders: Yes Hx Family Respiratory Disorders: No Hx Family Cancer: No Hx Family GI Disorders: No Hx Family Endocrine Disorder: No Hx Family Neuromuscular Disorders: No Hx Family Neurologic Disorders: No Hx Family HEENT Disorders: No Hx Family Autoimmune Disorders: No Internal Medicine - H&P: Meds Albuterol Sulfate [Proair Respiclick] 2 puff IH Q4H PRN 09/29/15 [History] Fluticasone/Salmeterol [Advair 250-50 Diskus] 2 puff IH BID 09/29/15 [History] Gabapentin [Neurontin] 600 mg PO BID 09/29/15 [History] Insulin ASPART [NovoLOG] 8 unit SQ TIDWM 09/29/15 [History] Insulin Glargine [Lantus] 70 unit SQ QPM 09/29/15 [History] Lansoprazole [Prevacid] 30 mg PO DAILY 09/29/15 [History] Lisinopril [Zestril] 10 mg PO DAILY 09/29/15 [History] Tiotropium [Spiriva] 18 mcg IH DAILY 09/29/15 [History] Atorvastatin Calcium [Lipitor] 20 mg PO DAILY 11/21/16 [History] Duloxetine [Cymbalta] 30 mg PO BID 11/21/16 [History] PredniSONE 10 mg PO DAILY #80 tablet 11/22/16 [Rx] Albuterol Neb [Proventil Neb] 2.5 mg IH Q4H PRN 11/29/16 [History] Furosemide [Lasix] 40 mg PO DAILY #30 tablet 11/30/16 [Rx] Ondansetron ODT [Zofran ODT] 4 mg SL Q6HR #14 tab.rapdis 12/09/16 [Rx] Allergies aspirin [ASA] Allergy (Verified 11/29/16 10:50) Anaphylaxis bupropion [From Wellbutrin] Allergy (Verified 12/07/16 21:19) Agitated Penicillins Allergy (Verified 11/29/16 10:50) Anaphylaxis Sulfa (Sulfonamide Antibiotics) Allergy (Verified 12/07/16 21:19) Vomiting All Systems PM: A 10-system review of systems was performed and is negative for pertinent findings except as documented above in the HPI. - Constitutional Constitutional: as per HPI, no chills, no fever(s), no night sweats - EENT Eyes: as per HPI, no change in vision, no discharge, no pain, no photophobia Ears: as per HPI, no ear discharge, no ear pain, no tinnitus Nose, mouth and throat: as per HPI, no dysphagia, no nasal discharge, no neck pain, no sore throat - Breasts Breasts: as per HPI - Cardiovascular Cardiovascular ROS IM: as per HPI, no chest pain, no diaphoresis, no dyspnea, no lightheadedness, no palpitations, no syncope - Respiratory Respiratory: as per HPI, no cough, no dyspnea, no wheezing, no excessive phlegm production - Gastrointestinal Gastrointestinal: as per HPI, no abdominal pain, no diarrhea, no hematemesis, no hematochezia, no melena, no nausea, no vomiting - Genitourinary Genitourinary: as per HPI, no change in urinary stream, no dysuria, no flank pain, no hematuria Menstruation: as per HPI - Musculoskeletal Musculoskeletal ROS IM: as per HPI, no numbness, no tingling - Integumentary Integumentary IM: as per HPI, no rash, no unusual bruising - Neurological Neurological ROS: as per HPI, no confusion, no convulsions, no focal weakness, no numbness, no tingling, no tremor(s) - Psychiatric Psychiatric: as per HPI - Endocrine Endocrine IM: as per HPI - Hematologic/Lymphatic Hematologic/Lymphatic: as per HPI, no easy bruising - Allergic/Immunologic Allergic/Immunologic: as per HPI - Constitutional Vitals: Temp Pulse Resp BP Pulse Ox 98.4 F 58 0 0/0 94 L 01/18/17 19:03 01/18/17 22:05 01/18/17 23:37 01/18/17 23:37 01/18/17 22:05 General appearance: Present: cooperative, A&O X 3, pleasant, obese Exam: right conjunctival hyperemia, right eye blindness - Head Head exam: Present: atraumatic, normocephalic - Eye Eye exam: Present: PERRL, conjuntiva pink, sclera anicteric Pupils: Present: PERRL - Neck Neck exam general surgery: Present: supple, trachea midline. Absent: lymphadenopathy - Respiratory Respiratory exam: Present: decreased breath sounds, wheezes (expiratory). Absent: accessory muscle use, rales, rhonchi - Cardiovascular Cardiovascular exam: Present: RRR, +S1, +S2. Absent: diastolic murmur, gallop, rubs, systolic murmur - GI/Abdominal GI/Abdominal exam: Present: normal bowel sounds, soft, no peritoneal signs. Absent: distended, tenderness - Extremities Exam Extremities exam: Present: warm, radial pulses palpable and symetrical. Absent : calf tenderness, cyanotic, pedal edema - Neurological Exam Neurological exam: Present: CN II-XII intact, oriented X3, no focal deficits. Absent: pronater drift, facial droop, speech deficit - Skin Skin exam: Present: dry, intact Internal Med - H&P Results - Labs CBC & Chem 7: 01/18/17 19:46 01/18/17 19:46
[2017-01-19] MEDS ORDERED: Naloxone 0.4 MG/ML INJ IVP PRN (00:19)
[2017-01-19] MEDS ORDERED: Acetaminophen 325 MG TABLET PO PRN (00:19)
[2017-01-19] MEDS ORDERED: Ondansetron 4 MG/2 ML VIAL IVP PRN (00:19)
[2017-01-19] MEDS ORDERED: *HR* Dextrose 50 % in Water (Syg) 50 ML SYRINGE IVP PRN (00:24)
[2017-01-19] MEDS ORDERED: Dextrose Gel 15 GM PO PRN ×2 (00:24)
[2017-01-19 01:37] LABS: Basophils % 0.7 %; Eosinophils # 0.1 K/mcL (0.0-0.6); Hematocrit 43.7 % (35.3-44.9); Hemoglobin 13.8 g/dL (11.5-15.4); Immature Granulocytes % 0.8 % (0-4); Immature Platelets 3.3 % (1.1-6.1); Lymphocytes # 1.8 K/mcL (0.6-4.6); Lymphocytes % 29.6 %; Mean Corpuscular HGB Conc 31.6 g/dL (31.6-35.5); Mean Corpuscular Hemoglobin 28.4 pg (28.0-33.3); Mean Corpuscular Volume 89.9 fL (83.0-100.0); Mean Platelet Volume 9.8 fL (9.4-12.4); Monocytes # 0.4 K/mcL (0.0-1.3); Monocytes % 6.8 %; Neutrophils # 3.6 K/mcL (1.6-8.9); Platelet Count 251 K/mcL (140-400); Red Blood Count 4.86 M/mcL (3.82-4.97); Red Cell Distribution Width 13.8 % (11.5-14.5); Segmented Neutrophils % 60.1 %
[2017-01-19 02:09] LABS: Calcium 8.6 mg/dL (8.6-10.8); Chol/HDL Ratio 4.4 (0-4.9); Magnesium 1.7 mg/dL (1.6-2.6); Potassium 3.9 mEq/L (3.5-4.5)
[2017-01-19 02:23] LABS: Hemoglobin A1C 6.6 %
[2017-01-19] MEDS: Ipratropium/Albuterol Neb 3 ML IH SCH ×4 (04:21→16:07)
[2017-01-19] MEDS ORDERED: Famotidine 20 MG/2 ML VIAL IVP SCH (06:00)
[2017-01-19] MEDS: *HR* Heparin 5,000 UNIT/ML VIAL SQ SCH ×2 (06:49→17:49)
[2017-01-19] MEDS: Insulin LISPRO 300 UNITS/3 ML VIAL SQ SCH ×4 (08:33→23:11)
--- NOTE | 2017-01-19 15:36 | Electrocardiograph Report ---
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
--- NOTE | 2017-01-19 17:17 | Internal Med Progress Note ---
Date of Encounter: 01/19/17 Time of Encounter: 14:00 - Assessment and plan (1) Acute right MCA stroke Current Visit: Yes Status: Acute Assessment and plan: MRI confirms acute CVA in the right MCA territory. Not a TPA candidate. We will check echocardiogram and carotid Dopplers. Consult neurology. She was started on Plavix. Continue this. Close blood pressure monitoring. Frequent neurological checks. Lipid panel was checked this morning. We will get PTOT evaluation (2) DM (diabetes mellitus), type 2 Current Visit: No Status: Chronic Assessment and plan: Insulin Levemir and NovoLog sliding scale. Check hemoglobin A1c. 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 Allow for permissive hypertension. Qualifiers: Hypertension type: essential hypertension Qualified Code(s): I10 - Essential (primary) hypertension (4) DVT prophylaxis Current Visit: No Status: Acute Assessment and plan: We will use subcutaneous heparin. (5) Tobacco abuse Current Visit: No Status: Chronic (6) Marijuana abuse Current Visit: Yes Status: Acute Assessment and plan: I advised refraining from marijuana use. (7) Altered mental status Current Visit: Yes Status: Acute Assessment and plan: Likely secondary to stroke and marijuana use. Currently has improved. Qualifiers: Altered mental status type: delirium Qualified Code(s): R41.0 - Disorientation, unspecified - Subjective Interval history: Patient was brought to the hospital for altered mental status and confusion of sudden onset, considered to be multifactorial. Currently her confusion has significantly improved overnight, she is awake alert oriented. She denies associated weakness numbness vision loss and headache. - Constitutional Vitals: Temp Pulse Resp BP Pulse Ox 97.6 F 73 20 130/78 89 L 01/19/17 11:47 01/19/17 11:47 01/19/17 16:07 01/19/17 11:47 01/19/17 16:07 General appearance: Present: cooperative, A&O X 3, pleasant, obese - Respiratory Respiratory exam: Present: CTAB. Absent: accessory muscle use, rales, rhonchi, wheezes - Cardiovascular Cardiovascular exam: Present: RRR, +S1, +S2. Absent: diastolic murmur, gallop, rubs, systolic murmur - GI/Abdominal GI/Abdominal exam: Present: normal bowel sounds, soft, no peritoneal signs. Absent: distended, tenderness - Extremities Exam Extremities exam: Present: warm, radial pulses palpable and symetrical. Absent : calf tenderness, cyanotic, pedal edema - Neurological Exam Neurological exam: Present: CN II-XII intact, oriented X3, no focal deficits. Absent: pronater drift, facial droop, speech deficit - Skin Skin exam: Present: dry, intact Internal Medicine: Result - Labs CBC & Chem 7: 01/19/17 01:20 01/19/17 01:20 Labs: Short CBC 01/19/17 Range/Units 01:20 WBC 6.0 (4.3-11.1) K/mcL Hgb 13.8 (11.5-15.4) g/dL Hct 43.7 (35.3-44.9) % Plt Count 251 (140-400) K/mcL Neutrophils # 3.6 (1.6-8.9) K/mcL BMP 01/19/17 01:20 Sodium 138 Potassium 3.9 Chloride 97 L Carbon Dioxide 33 H BUN 16 Creatinine 1.28 H Glucose 128 H Calcium 8.6 Cardiac Enzymes 01/19/17 01/19/17 Range/Units 01:20 05:49 Troponin I 0.01 0.01 (0-0.03) ng/mL - ABG Interpretation ABG results: ABG ABG pH 7.39 pH Units (7.32-7.45) 01/18/17 21:54 ABG pCO2 63 mmHg (35-45) H 01/18/17 21:54 ABG pO2 63 mmHg (85-104) L 01/18/17 21:54 ABG O2 Saturation 92 % (95-98) L 01/18/17 21:54 PT/INR, D-dimer PT 12.9 Seconds (9.4-12.1) H 01/18/17 19:46 - Impressions MRI of the brain done this afternoon shows acute CVA. Consult Discharge Plan - Plan Referrals: NO,PCP [Primary Care Provider] -
[2017-01-19] MEDS: Nicotine 14 MG PATCH.TD24 TD SCH (17:49)
[2017-01-19] MEDS ORDERED: Insulin DETEMIR 100 UNIT/ML X5UNITS SQ SCH (21:00)
[2017-01-20] MEDS: Ipratropium/Albuterol Neb 3 ML IH SCH ×5 (00:04→22:44)
[2017-01-20] MEDS ORDERED: Famotidine 20 MG/2 ML VIAL IVP SCH (06:00)
[2017-01-20 06:39] LABS: Basophils % 0.5 %; Eosinophils # 0.1 K/mcL (0.0-0.6); Eosinophils % 1.6 %; Hematocrit 43.9 % (35.3-44.9); Hemoglobin 14.2 g/dL (11.5-15.4); Immature Granulocytes % 0.2 % (0-4); Lymphocytes # 1.5 K/mcL (0.6-4.6); Lymphocytes % 33.3 %; Mean Corpuscular HGB Conc 32.3 g/dL (31.6-35.5); Mean Corpuscular Hemoglobin 28.3 pg (28.0-33.3); Mean Corpuscular Volume 87.6 fL (83.0-100.0); Mean Platelet Volume 10.1 fL (9.4-12.4); Monocytes # 0.3 K/mcL (0.0-1.3); Neutrophils # 2.5 K/mcL (1.6-8.9); Platelet Count 207 K/mcL (140-400); Red Blood Count 5.01 M/mcL (3.82-4.97); Red Cell Distribution Width 13.6 % (11.5-14.5); Segmented Neutrophils % 57.4 %
[2017-01-20 06:44] LABS: BUN/Creatinine Ratio 13 (6-26); Blood Urea Nitrogen 14 mg/dL (7-20); Calcium 9.1 mg/dL (8.6-10.8); Carbon Dioxide 31 mEq/L (19-29); Chloride 98 mEq/L (98-109); Glucose 139 mg/dL (70-99); Osmolality,Calculated 291 (280-300); Potassium 4.1 mEq/L (3.5-4.5); Sodium 139 mEq/L (136-145); eGFR For African Americans > 60 (> 60); eGFR For Non-African Americans 50 (> 60)
--- NOTE | 2017-01-20 08:59 | Neurology - Consult Note ---
Date of Encounter: 01/20/17 Time of Encounter: 08:53 Assessment and Plan (1) Acute right MCA stroke Current Visit: Yes Status: Acute -MRI demonstrated acute microinfarctions of right frontal and parietal lobe, likely contributing to her acute mental status changes; however she is back to her baseline mental status -Agree with starting her on Plavix as she is allergic to aspirin, and also start her on 40 mg Lipitor daily -Echocardiogram and Carotid US are pending; may consider SUZANNE for further evaluation of left atrial appendage as her previous CVA is possibly embolic in origin -She has history of non-compliance and currently has no PCP; I spoke to her at length the importance of establishing with a PCP to help manage her multiple co- morbidities as she is not taking any medications other than as needed Tylenol -Upon discharge, patient would likely benefit from a sleep study as she may have underlying GLENN/OHS History of Present Illness Chief complaint: AMS HPI: Ms. Mclaughlin is a 66 year old female who presented to the ED with altered mental status. She states her friends noted that she was confused but she was unaware of it herself. She has multiple co-morbidities including previous CVA, HTN, HLD , DM, and history of breast and "stomach" cancer, but she does not have a PCP and is not on any medications other than as needed Tylenol for headaches. Patient did complain of generalized weakness as she felt "ill" when she initially presented and was also short of breath. She does have COPD and is on oxygen at home, but does not use any inhalers. She denies any focal weakness, slurred speech, facial droop, loss of consciousness, numbness, tingling, or chest pain. Patient lives with friends who are able to assist her as she does have trouble walking at baseline likely secondary to her previous CVAs. Patient is also legally blind on her right eye and is unsure of the cause, although outpatient documents state it was also due to her stroke in 2011. She continues to smoke about 0.5 pack of cigarettes a day and admits to occasional marijuana use, but denies any alcohol or other illicit drugs. Past Med Surg Social Fam HX - Past Medical History Medical history: arthritis, cancer, COPD, coronary artery disease, CVA, DVT, diabetes, hyperlipidemia, hypertension, malignancy, renal disease Psychiatric history: bipolar, depression - Past Surgical History Surgical History: , hysterectomy, other - Social History Smoking Status: Current every day smoker Packs per day: 1 Smokeless Tobacco Status: No Alcohol use: none Drug use: none - Family History Mother Adopted: Yes Living Status: Still Living Father Adopted: Yes Family Member Ethnicity: Non- Living Status: Hx Family Cardiac Disorders: Yes Hx Family Respiratory Disorders: No Hx Family Cancer: No Hx Family GI Disorders: No Hx Family Endocrine Disorder: No Hx Family Neuromuscular Disorders: No Hx Family Neurologic Disorders: No Hx Family HEENT Disorders: No Hx Family Autoimmune Disorders: No Medications and Allergies Albuterol Sulfate [Proair Respiclick] 2 puff IH Q4H PRN 09/29/15 [History] Fluticasone/Salmeterol [Advair 250-50 Diskus] 2 puff IH BID 09/29/15 [History] Gabapentin [Neurontin] 600 mg PO TID 09/29/15 [History] Insulin ASPART [NovoLOG] 15 unit SQ TIDWM 09/29/15 [History] Insulin Glargine [Lantus] 74 unit SQ QPM 09/29/15 [History] Lansoprazole [Prevacid] 30 mg PO DAILY 09/29/15 [History] Lisinopril [Zestril] 10 mg PO DAILY 09/29/15 [History] Tiotropium [Spiriva] 18 mcg IH DAILY 09/29/15 [History] Atorvastatin Calcium [Lipitor] 20 mg PO DAILY 11/21/16 [History] Albuterol Neb [Proventil Neb] 2.5 mg IH Q4H PRN 11/29/16 [History] FLUoxetine HCl [Fluoxetine HCl] 40 mg PO DAILY 01/19/17 [History] Allergies aspirin [ASA] Allergy (Verified 11/29/16 10:50) Anaphylaxis bupropion [From Wellbutrin] Allergy (Verified 12/07/16 21:19) Agitated Penicillins Allergy (Verified 11/29/16 10:50) Anaphylaxis Sulfa (Sulfonamide Antibiotics) Allergy (Verified 12/07/16 21:19) Vomiting All Systems: A 10-system review of systems was performed and is negative for pertinent findings except as documented above in the HPI. - Constitutional Constitutional ROS IM: headache(s), no chills, no fever(s) - Eyes Eyes: right: loss of vision (chronic for last few years) - Nose, Mouth, Throat Nose, mouth and throat: headache(s) (chronic), no abnormal hearing, no dizziness , no facial pain, no sore throat - Cardiovascular Cardiovascular ROS IM: dyspnea, no chest pain, no chest pain at rest, no edema, no leg edema, no lightheadedness, no palpitations, no rapid heart rate - Respiratory Respiratory IM: dyspnea, wheezing, no cough - Gastrointestinal Gastrointestinal: no abdominal pain, no diarrhea, no hematemesis, no hematochezia, no melena, no nausea, no vomiting - Genitourinary Genitourinary ROS: no dysmenorrhea, no hematuria - Musculoskeletal Musculoskeletal ROS IM: abnormal gait (due to weakness), no numbness, no tingling Physical Examination - Vital Signs Vital Signs: Initial Vital Signs Temp Pulse Resp BP Pulse Ox 98.4 F 80 20 150/81 91 L 01/18/17 19:03 01/18/17 19:03 01/18/17 19:03 01/18/17 19:03 01/18/17 19:03 - Constitutional General appearance: comfortable - Neurologic Sensorimotor examination: intact Detailed motor examination: full strength in all major muscle groups Motor examination - right side: 4/5: hip flexors, quadriceps, 5/5: deltoids, biceps, triceps, deburring technician Motor examination - left side: 5/5: deltoids, biceps, triceps, hip flexors, deburring technician , quadriceps Detailed sensory examination: intact Reflex and gait examination: intact Reflexes: Biceps: 2+, Patella: 1+ Mental Status Examination: awake, alert, oriented to person, oriented to place, oriented to time, follows commands appropriately, answers questions appropriately, no agnosia, no aphasia, no aproxia Cranial nerve examination: PERRL (no pupillary reaction on right eye), EOMI, visual santacruz intact (blind on right eye), corneal reflexes brisk symmetrically , sensory to face intact, mastication intact, no facial asymmetry is present, no dysarthria, hearing is intact symmetrically, soft palate elevates bilaterally upon phonation, gag reflex intact, flexes SCM and trapezius muscles symmetrically with full power, tongue protrudes midline, no atrophy or facial fasiculations present Results - Laboratory Findings CBC and BMP: 01/20/17 06:02 01/20/17 06:02 Abnormal lab findings: Abnormal lab results RBC 5.01 M/mcL (3.82-4.97) H 01/20/17 06:02 PT 12.9 Seconds (9.4-12.1) H 01/18/17 19:46 APTT 39.7 Seconds (26.0-36.0) H 01/18/17 19:46 ABG pCO2 63 mmHg (35-45) H 01/18/17 21:54 ABG pO2 63 mmHg (85-104) L 01/18/17 21:54 ABG HCO3 38.1 mEQ/L (21-27) H 01/18/17 21:54 ABG Total CO2 40.0 mEq/L (20-26) H 01/18/17 21:54 ABG O2 Saturation 92 % (95-98) L 01/18/17 21:54 ABG Base Excess 10.4 mEq/L (-2.0 to 3.0) H 01/18/17 21:54 Carbon Dioxide 31 mEq/L (19-29) H 01/20/17 06:02 Est GFR (Non-Af Amer) 50 (> 60) L 01/20/17 06:02 Glucose 139 mg/dL (70-99) H 01/20/17 06:02 POC Glucose 204 (58-89) H 01/19/17 19:49 Hemoglobin A1c 6.6 % (-5.6) H 01/19/17 01:20 Albumin 2.9 g/dL (3.5-5.0) L 01/18/17 19:46 Globulin 4.0 g/dL (2.4-3.5) H 01/18/17 19:46 Albumin/Globulin Ratio 0.7 (1.1-2.2) L 01/18/17 19:46 HDL Cholesterol 34 mg/dL (40-59) L 01/19/17 01:20 Urine Clarity Cloudy (Clear) A 01/18/17 20:05 Urine Microscopic RBC 5-15 per hpf (0-3) H 01/18/17 20:05 Urine Microscopic WBC 3-5 per hpf (0-3) H 01/18/17 20:05 Ur Squamous Epith Cells Many per lpf (None-Few) H 01/18/17 20:05 Urine Bacteria Moderate per hpf (None-Few) H 01/18/17 20:05 U Marijuana (THC) Screen Positive ng/mL (Cutoff = 50) H 01/18/17 20:05 Consult Discharge Plan - Plan Referrals: NO,PCP [Primary Care Provider] -
[2017-01-20] MEDS: Insulin LISPRO 300 UNITS/3 ML VIAL SQ SCH ×4 (09:00→20:26)
[2017-01-20] MEDS: *HR* Heparin 5,000 UNIT/ML VIAL SQ SCH ×2 (09:01→17:26)
[2017-01-20] MEDS: Nicotine 14 MG PATCH.TD24 TD SCH (09:01)
--- NOTE | 2017-01-20 11:37 | ECHO - Doppler Report ---
Limited Echo with Saline Name: Kari Mclaughlin Date of Study: 01/20/2017 Date: 1950 Ht: 67.0 in Medical Record#: [id number] Age: 66 Wt: 260.0 lb Gender: Female BSA: 2.26 Order #: [id number] Location: [facility] Room #: [id number] Reading Physician: Madison Coburn DO Waste Hand: Joaquín Combs RDCS Ordering Physician: Paul Roman MD Primary Physician: None Indications: Cerebrovascular Accident Impressions: Limited Echo LVEF 55%. Normal left ventricular size and systolic function. Normal right ventricular size and function. There is no evidence of a PFO with agitated saline contrast. Left Ventricular Wall Motion: Rest Echo Findings All wall segments showed normal motion. Findings: Study Quality * Technically adequate exam. ECG Findings * Normal sinus rhythm. Left Ventricle * LVEF 55%. * Normal LV chamber size, wall thickness and function. Right Ventricle * Normal right ventricular structure and function. IVC * The IVC is not dilated. Interatrial Septum * No evidence of PFO with agitated saline contrast. History Hypertension Diabetes Hypercholesteremia History of Smoking Years Packs 1 History of CAD/PTCA Myocardial Infarction 11/30/16 a Previous Echo was performed. Contrast: Agitated saline 20 ml. Measurements: BP: 161/ 82 2D Normal Values RVIDd: 3.02 cm <2.7 cm IVSd: 1.10 cm 0.6 - 1.0 cm LVIDd: 4.60 cm 3.7 - 5.6 cm LVPWd: 1.15 cm 0.6 - 1.1 cm LVIDs: 3.54 cm 1.5 - 3.6 cm LA: 3.50 cm 2.0 - 4.0cm %FS: 23.00 cm >25 % LA volume: Updated by Madison Coburn on 01/20/2017 11:29:11 AM electronically signed on 01/20/2017 11:31:04 AM with status of Final Wall Motion Todd: 1=Normal, 2=Hypokinesis, 3=Akinesis, 4=Dyskinesis, 5=Aneurysmal, 6=Hyperkinetic, X=Not Visualized (Blank)=Missing
--- NOTE | 2017-01-20 13:46 | Carotid Imaging Report ---
Carotid Duplex Patient Name:Kari Mclaughlin Order Number:[id number] Procedure Date:01/20/2017 Date:1950Age:66 yrs Gender:Female Location:[facility] Room #: 2NE21 Stencil Cutter:Joaquín Combs RDCS Referring MD:Paul Roman MD addictions counselor assistant:None Reading MD:Ernie Torres MD Primary Indications:CVA Risk Factors Yes/No Hypertension Yes Diabetes Yes Hypercholesterolemia Yes Smoking Current Yes Impressions: The bilateral carotid arteries have minimal plaque throughout. Recommendations: After imaging the patient returned to their room. Findings Carotid Duplex: Right: There is nonstenotic plaque in the right proximal common carotid artery with a PSV of 94 cm/s and a EDV of 12 cm/s. There is smooth calcified plaque. The right mid common carotid artery has a PSV of 69 cm/s and a EDV of 11 cm/s. The right distal common carotid artery has a PSV of 58 cm/s and a EDV of 9 cm/s. There is nonstenotic plaque in the right bifurcation with a PSV of 72 cm/s and a EDV of 15 cm/s. There is smooth heterogeneous plaque. There is nonstenotic plaque in the right proximal internal carotid artery with a PSV of 100 cm/s and a EDV of 26 cm/s. There is smooth, heterogeneous calcified plaque. The right mid internal carotid artery has a PSV of 70 cm/s and a EDV of 15 cm/s. The right distal internal carotid artery has a PSV of 76 cm/s and a EDV of 16 cm/s. There is nonstenotic plaque in the right eca with a PSV of 154 cm/s and a EDV of 12 cm/s. The right vertebral artery has a PSV of 36 cm/s and a EDV of 6 cm/s. Left: The left proximal common carotid artery has a PSV of 83 cm/s and a EDV of 12 cm/s. The left mid common carotid artery has a PSV of 59 cm/s and a EDV of 10 cm/s. The left distal common carotid artery has a PSV of 57 cm/s and a EDV of 11 cm/s. There is nonstenotic plaque in the left bifurcation with a PSV of 50 cm/s and a EDV of 13 cm/s. There is smooth calcified plaque. The left proximal internal carotid artery has a PSV of 44 cm/s and a EDV of 11 cm/s. The left mid internal carotid artery has a PSV of 69 cm/s and a EDV of 16 cm/s. The left distal internal carotid artery has a PSV of 46 cm/s and a EDV of 9 cm/s. The left eca has a PSV of 137 cm/s and a EDV of 13 cm/s. The left vertebral artery has a PSV of 34 cm/s and a EDV of 9 cm/s. Prior Study: No prior study available for comparison. Carotid Results Right PSV EDV Assessment Proximal CCA 94 12 Non Stenotic Plaque Mid CCA 69 11 Normal Distal CCA 58 9 Normal Bifurcation 72 15 Non Stenotic Plaque Proximal ICA 100 26 Non Stenotic Plaque Mid ICA 70 15 Normal Distal ICA 76 16 Normal ECA 154 12 Non Stenotic Plaque Vertebral Artery 36 6 Normal Left PSV EDV Assessment Proximal CCA 83 12 Normal Mid CCA 59 10 Normal Distal CCA 57 11 Normal Bifurcation 50 13 Non Stenotic Plaque Proximal ICA 44 11 Normal Mid ICA 69 16 Normal Distal ICA 46 9 Normal ECA 137 13 Non Stenotic Plaque Vertebral Artery 34 9 Non Stenotic Plaque Ratio's Right ICA/CCA Ratio: 1.45 ICA/CCA Values: 100/69 Left ICA/CCA Ratio: 1.17 ICA/CCA Values: 69/59 Updated by Ernie Torres MD on 01/20/2017 1:41:26 PM electronically signed on 01/20/2017 1:41:43 PM with status of Final
[2017-01-20] MEDS ORDERED: Azithromycin 250 MG TABLET PO ONE (17:42)
[2017-01-20] MEDS: predniSONE 20 MG TABLET PO SCH (17:57)
[2017-01-20] MEDS ORDERED: Insulin DETEMIR 100 UNIT/ML X5UNITS SQ SCH (21:00)
--- NOTE | 2017-01-20 21:14 | Internal Med Progress Note ---
Date of Encounter: 01/20/17 Time of Encounter: 18:00 - Assessment and plan (1) Acute right MCA stroke Current Visit: Yes Status: Acute Assessment and plan: Continue with Plavix. Appreciate neurology recommendations. We will continue with physical therapy and close neurological monitoring. MRI confirms acute CVA in the right MCA territory. Not a TPA candidate. We will check echocardiogram and carotid Dopplers. Consult neurology. She was started on Plavix. Continue this. Close blood pressure monitoring. Frequent neurological checks. Lipid panel was checked this morning. We will get PTOT evaluation (2) DM (diabetes mellitus), type 2 Current Visit: No Status: Chronic Assessment and plan: Insulin Levemir and NovoLog sliding scale. Check hemoglobin A1c. Qualifiers: Diabetes mellitus complication status: without complication Diabetes mellitus intermediate teacher insulin use: with long-term use Qualified Code(s): E11.9 - Type 2 diabetes mellitus without complications; Z79.4 - prison (current) use of insulin (3) HTN (hypertension) Current Visit: No Status: Chronic Assessment and plan: Hold antihypertensive medication. Allow for permissive hypertension. Qualifiers: Hypertension type: essential hypertension Qualified Code(s): I10 - Essential (primary) hypertension (4) DVT prophylaxis Current Visit: No Status: Acute Assessment and plan: We will use subcutaneous heparin. (5) Tobacco abuse Current Visit: No Status: Chronic (6) Marijuana abuse Current Visit: Yes Status: Acute Assessment and plan: I advised refraining from marijuana use. (7) Altered mental status Current Visit: Yes Status: Acute Assessment and plan: Likely secondary to stroke and marijuana use. Currently has improved. Qualifiers: Altered mental status type: delirium Qualified Code(s): R41.0 - Disorientation, unspecified (8) Community acquired pneumonia Current Visit: Yes Status: Acute Assessment and plan: She has rhonchi on auscultation, chest x-ray on admission showed an infiltrate. She is slightly hypoxic on her usual oxygen by nasal cannula. She denies fever or chest pain however this clinical picture is suggestive of pneumonia and therefore I will start treatment with Levaquin. Repeat chest x-ray in the morning. - Subjective Interval history: 01/20/2017: Patient reports cough with mild shortness of breath, better with oxygen by nasal cannula which she is sent home. She has periods of hypoxia to low 90s. Patient was brought to the hospital for altered mental status and confusion of sudden onset, considered to be multifactorial. Currently her confusion has significantly improved overnight, she is awake alert oriented. She denies associated weakness numbness vision loss and headache. - Constitutional Vitals: Temp Pulse Resp BP Pulse Ox 97.5 F L 75 20 155/97 90 L 01/20/17 15:30 01/20/17 20:28 01/20/17 20:28 01/20/17 20:28 01/20/17 16:04 General appearance: Present: cooperative, A&O X 3, pleasant, obese - Eye Eye exam: Present: PERRL, conjuntiva pink, sclera anicteric Pupils: Present: PERRL - Respiratory Respiratory exam: Present: CTAB, rhonchi. Absent: accessory muscle use, rales, wheezes - Cardiovascular Cardiovascular exam: Present: RRR, +S1, +S2. Absent: diastolic murmur, gallop, rubs, systolic murmur - GI/Abdominal GI/Abdominal exam: Present: normal bowel sounds, soft, no peritoneal signs. Absent: distended, tenderness - Extremities Exam Extremities exam: Present: warm, radial pulses palpable and symetrical. Absent : calf tenderness, cyanotic, pedal edema Internal Medicine: Result - Labs CBC & Chem 7: 01/20/17 06:02 01/20/17 06:02 Labs: Short CBC 01/20/17 Range/Units 06:02 WBC 4.4 (4.3-11.1) K/mcL Hgb 14.2 (11.5-15.4) g/dL Hct 43.9 (35.3-44.9) % Plt Count 207 (140-400) K/mcL Neutrophils # 2.5 (1.6-8.9) K/mcL BMP 01/20/17 06:02 Sodium 139 Potassium 4.1 Chloride 98 Carbon Dioxide 31 H BUN 14 Creatinine 1.09 Glucose 139 H Calcium 9.1 - ABG Interpretation ABG results: ABG ABG pH 7.39 pH Units (7.32-7.45) 01/18/17 21:54 ABG pCO2 63 mmHg (35-45) H 01/18/17 21:54 ABG pO2 63 mmHg (85-104) L 01/18/17 21:54 ABG O2 Saturation 92 % (95-98) L 01/18/17 21:54 PT/INR, D-dimer PT 12.9 Seconds (9.4-12.1) H 01/18/17 19:46 Consult Discharge Plan - Plan Referrals: NO,PCP [Primary Care Provider] -
[2017-01-20] MEDS ORDERED: Levofloxacin 750 MG/150 ML 750 MG/150 ML BAG IVPB SCH (22:00)
[2017-01-20] MEDS ORDERED: levoFLOXacin 750 MG TABLET PO SCH (23:00)
[2017-01-21] MEDS: Ipratropium/Albuterol Neb 3 ML IH SCH ×2 (04:26→11:19)
[2017-01-21] MEDS: *HR* Heparin 5,000 UNIT/ML VIAL SQ SCH (05:57)
[2017-01-21] MEDS ORDERED: predniSONE 20 MG TABLET PO SCH (09:00)
[2017-01-21] MEDS: Insulin LISPRO 300 UNITS/3 ML VIAL SQ SCH ×2 (09:57→11:57)
[2017-01-21] MEDS: Nicotine 14 MG PATCH.TD24 TD SCH (09:57)
[2017-01-21] MEDS: predniSONE 20 MG TABLET PO SCH (09:58)
--- NOTE | 2017-01-21 11:03 | Discharge Summary ---
Date of Encounter: 01/21/17 Time of Encounter: 10:58 - Discharge Diagnosis (1) Acute right MCA stroke Priority: Primary Status: Acute (2) DM (diabetes mellitus), type 2 Priority: Secondary Status: Chronic Qualifiers: Diabetes mellitus complication status: without complication Diabetes mellitus manager long term care insulin use: with [facility] use Qualified Code(s): E11.9 - Type 2 diabetes mellitus without complications; Z79.4 - group home (current) use of insulin (3) HTN (hypertension) Priority: Secondary Status: Chronic Qualifiers: Hypertension type: essential hypertension Qualified Code(s): I10 - Essential (primary) hypertension (4) DVT prophylaxis Priority: Secondary Status: Acute (5) Tobacco abuse Priority: Secondary Status: Chronic (6) Marijuana abuse Priority: Secondary Status: Acute (7) Altered mental status Priority: Secondary Status: Acute Qualifiers: Altered mental status type: delirium Qualified Code(s): R41.0 - Disorientation, unspecified (8) Community acquired pneumonia Priority: Secondary Status: Acute - Discharge Medications Prescriptions: Atorvastatin [Lipitor] 40 mg PO HS #30 tablet Clopidogrel [Plavix] 75 mg PO DAILY #30 tablet Ipratropium/Albuterol Neb [Duoneb] 3 ml IH TID #60 inhsol Levofloxacin 750 mg PO HS #4 tablet PredniSONE 40 mg PO DAILY #4 tablet Home Medications: Albuterol Sulfate [Proair Respiclick] 2 puff IH Q4H PRN 09/29/15 [History] Fluticasone/Salmeterol [Advair 250-50 Diskus] 2 puff IH BID 09/29/15 [History] Gabapentin [Neurontin] 600 mg PO TID 09/29/15 [History] Insulin ASPART [NovoLOG] 15 unit SQ TIDWM 09/29/15 [History] Insulin Glargine [Lantus] 74 unit SQ QPM 09/29/15 [History] Lansoprazole [Prevacid] 30 mg PO DAILY 09/29/15 [History] Lisinopril [Zestril] 10 mg PO DAILY 09/29/15 [History] Tiotropium [Spiriva] 18 mcg IH DAILY 09/29/15 [History] Atorvastatin Calcium [Lipitor] 20 mg PO DAILY 11/21/16 [History] Albuterol Neb [Proventil Neb] 2.5 mg IH Q4H PRN 11/29/16 [History] FLUoxetine HCl [Fluoxetine HCl] 40 mg PO DAILY 01/19/17 [History] Atorvastatin [Lipitor] 40 mg PO HS #30 tablet 01/21/17 [Rx] Clopidogrel [Plavix] 75 mg PO DAILY #30 tablet 01/21/17 [Rx] Ipratropium/Albuterol Neb [Duoneb] 3 ml IH TID #60 inhsol 01/21/17 [Rx] Levofloxacin 750 mg PO HS #4 tablet 01/21/17 [Rx] Nicotine Patch [Nicoderm] 14 mg TD DAILY patch.td24 01/21/17 [Rx] PredniSONE 40 mg PO DAILY #4 tablet 01/21/17 [Rx] Allergies/Adverse Reactions: Allergies aspirin [ASA] Allergy (Verified 11/29/16 10:50) Anaphylaxis bupropion [From Wellbutrin] Allergy (Verified 12/07/16 21:19) Agitated Penicillins Allergy (Verified 11/29/16 10:50) Anaphylaxis Sulfa (Sulfonamide Antibiotics) Allergy (Verified 12/07/16 21:19) Vomiting Procedures/tests Complete & Pending: Procedures Performed prior 72 hours Category Date Time Status EV carotid duplex imaging BI Routine Y 01/19/17 17:13 Completed EV limited echocardiogram Routine Y 01/20/17 17:13 Completed Date of admission: 01/19/17 00:51 Primary care physician: PCP NO Consults: 01/19/17 17:12 Consult to Neurology [CONS] Routine Consulting Provider: Neurology [facility] Reason for Consult: acute cva Call Completed: Yes 01/19/17 17:39 Consult to Occupational Therapy [CONS] Routine Comment: Evaluate, develop and implement POC Consult to Physical Therapy [CONS] Routine Comment: Evaluate, develop and implement POC - Patient Status Disposition: Home Health Service Condition: Fair Functional capacity at discharge: uses cane/walker Overall status at discharge: patient is progressing back to baseline - Discharge Instructions Instructions: Acute Respiratory Distress Syndrome (DC), Chronic Obstructive Pulmonary Disease (DC), Chronic Hypertension (DC), Pneumonia (DC) Follow Up With: Trace Davis MD [Non-Partnered Physician] - 01/28/17 2:30 pm NO,PCP [Primary Care Provider] - - Diet and Activity Activity: as per physical therapy Diet: advance to your usual diet, diabetic diet, low fat, low cholesterol, low salt diet Hospital course: Ms. Mclaughlin is a 66 year old female with medical history of hypertension, CVA, chronic active smoker, marijuana use, legally blind in the right eye, COPD on long-term oxygen therapy. Patient presented to our emergency department with complaints of changes in her mental status, she was confused and apparently had an argument with her roommates. Initial evaluation in the emergency department revealed a CO2 retention with a PCO2 of 53 and pH of 7.39. She was diagnosed with altered mental status in the context of marijuana use and possible acute kidney injury. Acute CVA was a consideration and therefore an MRI of the brain was done which revealed an acute CVA in the right MCA territory. Neurology was consulted. Recommended starting Lipitor and Plavix. She was counseled extensively regarding the benefits of smoking cessation and was advised to stop smoking. Her mental status has improved. She was also started on treatment for pneumonia as on day 2 she started having prominent wheezing and increasing oxygen requirements. Her chest x-ray did show a right basilar infiltrate. She will be discharged home with prednisone, inhaled bronchodilators and antibiotics. She was evaluated by physical therapy and occupational therapy and deemed a good candidate for home health. The patient appears to be back to baseline and medically stable for discharge home with home PT and nursing. - Time Spent with Patient Total time spent providing and/or coordinating discharge services: - Constitutional Vitals: Temp Pulse Resp BP Pulse Ox 97.8 F 78 19 171/93 94 L 01/21/17 03:32 01/21/17 03:32 01/21/17 03:32 01/21/17 08:20 01/21/17 03:32 General appearance: Present: cooperative, A&O X 3, pleasant, obese - Respiratory Respiratory exam: Present: wheezes. Absent: accessory muscle use, rales, rhonchi - Cardiovascular Cardiovascular exam: Present: RRR, +S1, +S2. Absent: diastolic murmur, gallop, rubs, systolic murmur - GI/Abdominal GI/Abdominal exam: Present: normal bowel sounds, soft, no peritoneal signs. Absent: distended, tenderness
--- NOTE | 2017-01-21 11:06 | Physician Discharge Referral ---
Home Health/Hosp Referral Info Transfer to: Home Health Provider in Charge Post Discharge: PCP - Diagnosis (1) Acute right MCA stroke Status: Acute (2) DM (diabetes mellitus), type 2 Status: Chronic (3) HTN (hypertension) Status: Chronic (4) DVT prophylaxis Status: Acute (5) Tobacco abuse Status: Chronic (6) Marijuana abuse Status: Acute (7) Altered mental status Status: Acute (8) Community acquired pneumonia Status: Acute - Respiratory Orders Oxygen / L per min Smoking Cessation: Smoking cessation has been advised. For more information, call the [place] Tobacco Quit Line at 6-794-GCQQ-NOW. - Diet/Nutrition Diet/Nutrition Orders: No Added Salt (JESSIE), Cardiac, No Concentrated Sweets - Activity Activity Orders: Walker - Services Needed Following services are medically necessary services: Nursing, Home Health Aide, Physical Therapy - Transfer Medications Prescriptions: Atorvastatin [Lipitor] 40 mg PO HS #30 tablet Clopidogrel [Plavix] 75 mg PO DAILY #30 tablet Ipratropium/Albuterol Neb [Duoneb] 3 ml IH TID #60 inhsol Levofloxacin 750 mg PO HS #4 tablet PredniSONE 40 mg PO DAILY #4 tablet Home Medications: Albuterol Sulfate [Proair Respiclick] 2 puff IH Q4H PRN 09/29/15 [History] Fluticasone/Salmeterol [Advair 250-50 Diskus] 2 puff IH BID 09/29/15 [History] Gabapentin [Neurontin] 600 mg PO TID 09/29/15 [History] Insulin ASPART [NovoLOG] 15 unit SQ TIDWM 09/29/15 [History] Insulin Glargine [Lantus] 74 unit SQ QPM 09/29/15 [History] Lansoprazole [Prevacid] 30 mg PO DAILY 09/29/15 [History] Lisinopril [Zestril] 10 mg PO DAILY 09/29/15 [History] Tiotropium [Spiriva] 18 mcg IH DAILY 09/29/15 [History] Atorvastatin Calcium [Lipitor] 20 mg PO DAILY 11/21/16 [History] Albuterol Neb [Proventil Neb] 2.5 mg IH Q4H PRN 11/29/16 [History] FLUoxetine HCl [Fluoxetine HCl] 40 mg PO DAILY 01/19/17 [History] Atorvastatin [Lipitor] 40 mg PO HS #30 tablet 01/21/17 [Rx] Clopidogrel [Plavix] 75 mg PO DAILY #30 tablet 01/21/17 [Rx] Ipratropium/Albuterol Neb [Duoneb] 3 ml IH TID #60 inhsol 01/21/17 [Rx] Levofloxacin 750 mg PO HS #4 tablet 01/21/17 [Rx] Nicotine Patch [Nicoderm] 14 mg TD DAILY patch.td24 01/21/17 [Rx] PredniSONE 40 mg PO DAILY #4 tablet 01/21/17 [Rx] Allergies/Adverse Reactions: Allergies aspirin [ASA] Allergy (Verified 11/29/16 10:50) Anaphylaxis bupropion [From Wellbutrin] Allergy (Verified 12/07/16 21:19) Agitated Penicillins Allergy (Verified 11/29/16 10:50) Anaphylaxis Sulfa (Sulfonamide Antibiotics) Allergy (Verified 12/07/16 21:19) Vomiting Certification: Further, I certify that my clinical findings support that this patient is homebound (i.e. absences from home require considerable and taxing effort and are for medical reasons or yazidi services or infrequently or short duration when for other reasons) because: Homebound Reason: Patient requires assistance of a person or device to safely leave home, Leaving home requires considerable and taxing effort due to condition, Severity of cardiac or pulmonary status limits activity tolerance Attestation: My signature below is to certify that this patient is under my care and that I, or nurse practitioner, or a physician's preschool assistant working with me, has a face-to -face encounter with this patient.
[2017-01-21 11:49] VITALS: BP 165/80
== END 2017-01-21 15:37 | disposition home health service (06) | DRG 45 ==
LOC: EMEROO 19:00 → 2NENU 19:00
PROVIDERS: ADMIT Internal Medicine; ATTEND Internal Medicine

== ENCOUNTER 2017-03-15 21:05 | Inpatient (IN) ==
[2017-03-15] MEDS ORDERED: methylPREDNISolone 125 MG/2 ML VIAL IVP ONE (21:14)
[2017-03-15] MEDS ORDERED: Ipratropium/Albuterol Neb 3 ML IH ONE (21:14)
--- NOTE | 2017-03-15 21:18 | Emergency Department Note ---
Disposition Clinical Impression: Pneumonia, Pulmonary edema Disposition: Admitted As Inpatient Condition: Fair Time of Disposition: 22:34 SOB HPI - General Chief Complaint: ED Shortness of Breath/Dyspnea Stated Complaint: RILEY Time Seen by Provider: 03/15/17 21:08 Source: patient, EMS Mode of arrival: EMS Limitations: no limitations Nursing Notes Reviewed: Yes Vital Signs Reviewed: Yes - History of Present Illness 66-year-old female with history of COPD resents with chief complaint of shortness of breath worsening over the last several days that is exactly same as prior COPD exacerbations. She states that it improves partially with nebulizer treatments, but not completely. Apparently she was taken off her oxygen to walk and when she got back to bed approximately 78% so senior living called 911. She is resting comfortably on oxygen provided by EMS and states that she only has very mild shortness of breath this time. She states that her sputum is clear and occasionally white which is usual for her. She denies any fever, headaches, I problems, nausea, vomiting, abdominal pain or change in appetite. She denies any change in urination or bowel movements. She admits to mild chronic pedal edema which is at baseline bilaterally. - Related Data Home Medications Medication Instructions Recorded Confirmed Albuterol Sulfate [Proair 2 puff IH Q4H PRN 09/29/15 02/08/17 Respiclick] Fluticasone/Salmeterol [Advair 2 puff IH BID 09/29/15 02/08/17 250-50 Diskus] Gabapentin [Neurontin] 600 mg PO TID 09/29/15 02/08/17 Insulin ASPART [NovoLOG] 15 unit SQ TIDWM 09/29/15 02/08/17 Insulin Glargine [Lantus] 74 unit SQ QPM 09/29/15 02/08/17 Lansoprazole [Prevacid] 30 mg PO DAILY 09/29/15 02/08/17 Lisinopril [Zestril] 10 mg PO DAILY 09/29/15 02/08/17 Tiotropium [Spiriva] 1 cap IH DAILY 09/29/15 02/08/17 Albuterol Neb [Proventil Neb] 2.5 mg IH Q4H PRN 11/29/16 02/08/17 FLUoxetine HCl [Fluoxetine HCl] 40 mg PO DAILY 01/19/17 02/08/17 Acetaminophen [Tylenol] 1,000 mg PO Q6HR PRN 02/08/17 02/08/17 Previous Rx's Medication Instructions Recorded Atorvastatin [Lipitor] 40 mg PO HS #30 tablet 01/21/17 Clopidogrel [Plavix] 75 mg PO DAILY #30 tablet 01/21/17 Ipratropium/Albuterol Neb [Duoneb] 3 ml IH TID #60 inhsol 01/21/17 Allergies Allergy/AdvReac Type Severity Reaction Status Date / Time aspirin [ASA] Allergy Anaphylaxis Verified 02/08/17 12:21 bupropion [From Wellbutrin] Allergy Agitated Verified 02/08/17 12:21 Penicillins Allergy Anaphylaxis Verified 02/08/17 12:21 Sulfa (Sulfonamide Allergy Vomiting Verified 02/08/17 12:21 Antibiotics) All systems ED: reviewed and negative except as stated. Past Medical History - Past Medical History Medical history: Reports: arthritis, cancer, COPD, coronary artery disease, CVA , DVT, diabetes, hyperlipidemia, hypertension, malignancy, renal disease Surgical history: Reports: , hysterectomy, other Psychiatric history: Reports: bipolar, depression - Social History Smoking Status: Current every day smoker Smokeless Tobacco Status: No Alcohol use: Reports: none Drug use: Reports: none Physical Exam - Head Head exam: atraumatic, normocephalic, normal inspection - Eye Eye exam: Present: normal appearance, PERRL, EOMI - ENT ENT exam: normal exam, normal oropharynx, mucous membranes moist - Neck Neck exam: Present: normal inspection, full ROM, trachea midline - Chest Chest inspection: Present: normal inspection, symmetric chest wall rise - Respiratory Respiratory distress. Patient has moderate bilateral wheezes with good air movement. Cardiovascular Cardiovascular exam: Present: regular rate, normal rhythm, normal heart sounds - Abdominal Exam Abdominal exam: Present: soft, Non-Tender. Absent: tenderness, distention, guarding, rebound, rigidity - Extremities Exam Extremities exam: Present: normal inspection, full ROM - Expanded Lower Extremity Exam Hip/Pelvis exam: Present: normal inspection, full ROM - Neurological Exam Neurological exam: Present: alert, CN II-XII intact. No gross motor deficits. - Psychiatric Psychiatric exam: Present: normal affect, normal mood - Skin Skin exam: Present: warm, dry, intact, normal color Course - Reevaluation(s) Reevaluation #1: Chest x-ray read as pulmonary edema, but given entirety of clinical picture with temperature of 100.3 oral, white count of 14.3, no pedal edema or history of CHF, and history of staying in a senior living I am more concerned that this is an atypical pneumonia. We will cover with broad-spectrum antibiotics for healthcare associated pneumonia. Given the likely presence of combined pulmonary edema we will not give significant fluid boluses. Time: 22:33 Reevaluation #2: Accepted by Dr. Mccormack. Vital Signs Temperature 100.3 F H 03/15/17 21:07 Pulse Rate 94 03/15/17 21:07 Respiratory Rate 20 03/15/17 21:07 Blood Pressure 134/65 03/15/17 21:07 O2 Sat by Pulse Oximetry 92 03/15/17 21:07 Temperature 97.4 F L 03/16/17 04:02 Pulse Rate 72 03/16/17 04:02 Respiratory Rate 13 03/16/17 04:02 Blood Pressure 130/70 03/16/17 04:02 O2 Sat by Pulse Oximetry 94 03/16/17 04:02 Oxygen Delivery Oxygen Delivery Nasal Cannula Shortness of Breath/Dyspnea - Lab Data Result diagrams: 03/16/17 03:23 03/16/17 03:23 Lab Results 03/15/17 03/15/17 03/15/17 Range/Units 21:38 21:38 21:38 WBC 13.6 H (4.3-11.1) K/mcL RBC 4.74 (3.82-4.97) M/mcL Hgb 13.0 (11.5-15.4) g/dL Hct 42.2 (35.3-44.9) % MCV 89.0 (83.0-100.0) fL MCH 27.4 L (28.0-33.3) pg MCHC 30.8 L (31.6-35.5) g/dL RDW 13.3 (11.5-14.5) % Plt Count 228 (140-400) K/mcL MPV 10.2 (9.4-12.4) fL Immature Gran % 0.7 (0-4) % Seg Neutrophils % 87.8 % Lymphocytes % 6.1 % Monocytes % 5.2 % Eosinophils % 0.1 % Basophils % 0.1 % Neutrophils # 11.9 H (1.6-8.9) K/mcL Lymphocytes # 0.8 (0.6-4.6) K/mcL Monocytes # 0.7 (0.0-1.3) K/mcL Eosinophils # 0.0 (0.0-0.6) K/mcL Basophils # 0.0 (0.0-0.2) K/mcL VBG pH (7.32-7.42) pH Units VBG pCO2 (41-51) mmHg VBG pO2 (25-40) mmHg VBG HCO3 (21-27) mEq/L Sodium 137 (136-145) mEq/L Potassium 4.8 H (3.5-4.5) mEq/L Chloride 100 (98-109) mEq/L Carbon Dioxide 30 H (19-29) mEq/L BUN 29 H (7-20) mg/dL Creatinine 1.27 H (0.57-1.11) mg/dL Est GFR ( Amer) 51 L (> 60) Est GFR (Non-Af Amer) 42 L (> 60) BUN/Creatinine Ratio 23 (6-26) Glucose 160 H (70-99) mg/dL Calculated Osmolality 293 (280-300) Calcium 8.9 (8.6-10.8) mg/dL Troponin I 0.03 (0-0.03) ng/mL 03/15/17 Range/Units 21:38 WBC (4.3-11.1) K/mcL RBC (3.82-4.97) M/mcL Hgb (11.5-15.4) g/dL Hct (35.3-44.9) % MCV (83.0-100.0) fL MCH (28.0-33.3) pg MCHC (31.6-35.5) g/dL RDW (11.5-14.5) % Plt Count (140-400) K/mcL MPV (9.4-12.4) fL Immature Gran % (0-4) % Seg Neutrophils % % Lymphocytes % % Monocytes % % Eosinophils % % Basophils % % Neutrophils # (1.6-8.9) K/mcL Lymphocytes # (0.6-4.6) K/mcL Monocytes # (0.0-1.3) K/mcL Eosinophils # (0.0-0.6) K/mcL Basophils # (0.0-0.2) K/mcL VBG pH 7.34 (7.32-7.42) pH Units VBG pCO2 62 H (41-51) mmHg VBG pO2 153 H (25-40) mmHg VBG HCO3 33.4 H (21-27) mEq/L Sodium (136-145) mEq/L Potassium (3.5-4.5) mEq/L Chloride (98-109) mEq/L Carbon Dioxide (19-29) mEq/L BUN (7-20) mg/dL Creatinine (0.57-1.11) mg/dL Est GFR ( Amer) (> 60) Est GFR (Non-Af Amer) (> 60) BUN/Creatinine Ratio (6-26) Glucose (70-99) mg/dL Calculated Osmolality (280-300) Calcium (8.6-10.8) mg/dL Troponin I (0-0.03) ng/mL - EKG Data EKG attestation: Yes I reviewed and interpreted this EKG. EKG results narrative: EKG shows normal sinus rhythm at 89 with normal axis and intervals. Occasional ectopic beat. No ST elevation or depression. No T-wave inversions or flattening. No old EKG available this time.
--- NOTE | 2017-03-15 21:33 | Emergency Department Note ---
Disposition Clinical Impression: Pneumonia, Pulmonary edema Disposition: Admitted As Inpatient Condition: Fair General Adult HPI - General Chief complaint: ED Shortness of Breath/Dyspnea Stated complaint: RILEY Time Seen by Provider: 03/15/17 21:08 Source: patient, EMS Mode of arrival: EMS Limitations: no limitations - History of Present Illness Pain Scale: 0 - Related Data Home Medications Medication Instructions Recorded Confirmed Albuterol Sulfate [Proair 2 puff IH Q4H PRN 09/29/15 02/08/17 Respiclick] Fluticasone/Salmeterol [Advair 2 puff IH BID 09/29/15 02/08/17 250-50 Diskus] Gabapentin [Neurontin] 600 mg PO TID 09/29/15 02/08/17 Insulin ASPART [NovoLOG] 15 unit SQ TIDWM 09/29/15 02/08/17 Insulin Glargine [Lantus] 74 unit SQ QPM 09/29/15 02/08/17 Lansoprazole [Prevacid] 30 mg PO DAILY 09/29/15 02/08/17 Lisinopril [Zestril] 10 mg PO DAILY 09/29/15 02/08/17 Tiotropium [Spiriva] 1 cap IH DAILY 09/29/15 02/08/17 Albuterol Neb [Proventil Neb] 2.5 mg IH Q4H PRN 11/29/16 02/08/17 FLUoxetine HCl [Fluoxetine HCl] 40 mg PO DAILY 01/19/17 02/08/17 Acetaminophen [Tylenol] 1,000 mg PO Q6HR PRN 02/08/17 02/08/17 Previous Rx's Medication Instructions Recorded Atorvastatin [Lipitor] 40 mg PO HS #30 tablet 01/21/17 Clopidogrel [Plavix] 75 mg PO DAILY #30 tablet 01/21/17 Ipratropium/Albuterol Neb [Duoneb] 3 ml IH TID #60 inhsol 01/21/17 Allergies Allergy/AdvReac Type Severity Reaction Status Date / Time aspirin [ASA] Allergy Anaphylaxis Verified 02/08/17 12:21 bupropion [From Wellbutrin] Allergy Agitated Verified 02/08/17 12:21 Penicillins Allergy Anaphylaxis Verified 02/08/17 12:21 Sulfa (Sulfonamide Allergy Vomiting Verified 02/08/17 12:21 Antibiotics) Past Medical History - Past Medical History Medical history: Reports: arthritis, cancer, COPD, coronary artery disease, CVA , DVT, diabetes, hyperlipidemia, hypertension, malignancy, renal disease Surgical history: Reports: , hysterectomy, other Psychiatric history: Reports: bipolar, depression - Social History Smoking Status: Current every day smoker Smokeless Tobacco Status: No Alcohol use: Reports: none Drug use: Reports: none Physical Exam - General Limitations: no limitations General appearance: alert Course - Reevaluation(s) Reevaluation #1: I saw the patient with the resident, Dr. Dickey. Patient presents with a report of feeling run down for a day or 2 and she states she has had some low- grade temperature. She is noticing wheezing and shortness of breath. She says it got a lot worse today. Sounds like they ambulated her without her oxygen on and her O2 sats dropped significantly. Unclear as to whether that simply because she did not have her oxygen on or whether there is an underlying issue with her lungs. She does have a low-grade temperature here. She had diffuse wheezing in the lungs bilaterally. Vital signs and pulse ox looks okay otherwise. We will get a chest x-ray and the labs. Disposition will be based on diagnostic results and reevaluation. Time: 21:32 Vital Signs Temperature 100.3 F H 03/15/17 21:07 Pulse Rate 94 03/15/17 21:07 Respiratory Rate 20 03/15/17 21:07 Blood Pressure 134/65 03/15/17 21:07 O2 Sat by Pulse Oximetry 92 03/15/17 21:07 Temperature 97.4 F L 03/16/17 04:02 Pulse Rate 72 03/16/17 04:02 Respiratory Rate 13 03/16/17 04:02 Blood Pressure 130/70 03/16/17 04:02 O2 Sat by Pulse Oximetry 94 03/16/17 04:02 Oxygen Delivery Oxygen Delivery Nasal Cannula Medical Decision Making - Lab Data Result diagrams: 03/16/17 03:23 03/16/17 03:23 Lab Results 03/15/17 03/15/17 03/15/17 Range/Units 21:38 21:38 21:38 WBC 13.6 H (4.3-11.1) K/mcL RBC 4.74 (3.82-4.97) M/mcL Hgb 13.0 (11.5-15.4) g/dL Hct 42.2 (35.3-44.9) % MCV 89.0 (83.0-100.0) fL MCH 27.4 L (28.0-33.3) pg MCHC 30.8 L (31.6-35.5) g/dL RDW 13.3 (11.5-14.5) % Plt Count 228 (140-400) K/mcL MPV 10.2 (9.4-12.4) fL Immature Gran % 0.7 (0-4) % Seg Neutrophils % 87.8 % Lymphocytes % 6.1 % Monocytes % 5.2 % Eosinophils % 0.1 % Basophils % 0.1 % Neutrophils # 11.9 H (1.6-8.9) K/mcL Lymphocytes # 0.8 (0.6-4.6) K/mcL Monocytes # 0.7 (0.0-1.3) K/mcL Eosinophils # 0.0 (0.0-0.6) K/mcL Basophils # 0.0 (0.0-0.2) K/mcL VBG pH (7.32-7.42) pH Units VBG pCO2 (41-51) mmHg VBG pO2 (25-40) mmHg VBG HCO3 (21-27) mEq/L Sodium 137 (136-145) mEq/L Potassium 4.8 H (3.5-4.5) mEq/L Chloride 100 (98-109) mEq/L Carbon Dioxide 30 H (19-29) mEq/L BUN 29 H (7-20) mg/dL Creatinine 1.27 H (0.57-1.11) mg/dL Est GFR ( Amer) 51 L (> 60) Est GFR (Non-Af Amer) 42 L (> 60) BUN/Creatinine Ratio 23 (6-26) Glucose 160 H (70-99) mg/dL Calculated Osmolality 293 (280-300) Calcium 8.9 (8.6-10.8) mg/dL Troponin I 0.03 (0-0.03) ng/mL 03/15/17 Range/Units 21:38 WBC (4.3-11.1) K/mcL RBC (3.82-4.97) M/mcL Hgb (11.5-15.4) g/dL Hct (35.3-44.9) % MCV (83.0-100.0) fL MCH (28.0-33.3) pg MCHC (31.6-35.5) g/dL RDW (11.5-14.5) % Plt Count (140-400) K/mcL MPV (9.4-12.4) fL Immature Gran % (0-4) % Seg Neutrophils % % Lymphocytes % % Monocytes % % Eosinophils % % Basophils % % Neutrophils # (1.6-8.9) K/mcL Lymphocytes # (0.6-4.6) K/mcL Monocytes # (0.0-1.3) K/mcL Eosinophils # (0.0-0.6) K/mcL Basophils # (0.0-0.2) K/mcL VBG pH 7.34 (7.32-7.42) pH Units VBG pCO2 62 H (41-51) mmHg VBG pO2 153 H (25-40) mmHg VBG HCO3 33.4 H (21-27) mEq/L Sodium (136-145) mEq/L Potassium (3.5-4.5) mEq/L Chloride (98-109) mEq/L Carbon Dioxide (19-29) mEq/L BUN (7-20) mg/dL Creatinine (0.57-1.11) mg/dL Est GFR ( Amer) (> 60) Est GFR (Non-Af Amer) (> 60) BUN/Creatinine Ratio (6-26) Glucose (70-99) mg/dL Calculated Osmolality (280-300) Calcium (8.6-10.8) mg/dL Troponin I (0-0.03) ng/mL Attestation Statement - Attestation Attestation: I, Dr. Mcrae, examined this patient [id number] and my medical decision- making was reviewed with Dr. Dickey, Resident Physician. I agree with the documented findings, disposition and treatment plan as described except to the extent set forth below. Please see my progress notes for details.
[2017-03-15 21:52] LABS: Basophils % 0.1 %; Eosinophils % 0.1 %; Hematocrit 42.2 % (35.3-44.9); Immature Granulocytes % 0.7 % (0-4); Lymphocytes # 0.8 K/mcL (0.6-4.6); Lymphocytes % 6.1 %; Mean Corpuscular HGB Conc 30.8 g/dL (31.6-35.5); Mean Corpuscular Hemoglobin 27.4 pg (28.0-33.3); Mean Platelet Volume 10.2 fL (9.4-12.4); Monocytes # 0.7 K/mcL (0.0-1.3); Monocytes % 5.2 %; Neutrophils # 11.9 K/mcL (1.6-8.9); Platelet Count 228 K/mcL (140-400); Red Blood Count 4.74 M/mcL (3.82-4.97); Red Cell Distribution Width 13.3 % (11.5-14.5); Segmented Neutrophils % 87.8 %; VBG HCO3 33.4 mEq/L (21-27); VBG PH 7.34 pH Units (7.32-7.42)
[2017-03-15 22:05] LABS: Calcium 8.9 mg/dL (8.6-10.8); Potassium 4.8 mEq/L (3.5-4.5)
[2017-03-15] MEDS ORDERED: Vancomycin (wt based) 1,000 MG VIAL IV ONE (22:28)
[2017-03-15] MEDS ORDERED: Levofloxacin 750 MG/150 ML 750 MG/150 ML BAG IVPB ONE (22:28)
[2017-03-15] MEDS ORDERED: Vancomycin 1,500 MG in D5% in Water 250 ML IVPB ONE (23:04)
--- NOTE | 2017-03-16 02:14 | Internal Med History&Physical ---
Date of Encounter: 03/16/17 Time of Encounter: 02:13 Assessment and Plan (1) Acute respiratory failure Current visit: Yes Status: Acute Her prior records indicate that she was on chronic Oxygen supplementation ( However she denies). Acute respiratory failure is possibly multifactorial - COPD exacerbation versus pneumonia versus pulmonary edema (further workup is pending). Continue supplemental oxygen and treatment as below. Qualifiers: Respiratory failure complication: hypoxia Qualified Code(s): J96.01 - Acute respiratory failure with hypoxia (2) Acute exacerbation of chronic obstructive airways disease Current visit: Yes Status: Acute Will treat with Duo nebs, Solu-Medrol, levofloxacin and Mucinex. (3) Left lower lobe pneumonia Current visit: Yes Status: Suspected Radiologist does not report pneumonia on the CXR. However on my personal review of the chest x-ray, there is possible infiltrate in the left base. Will obtain sputum cultures. Empirically start on levofloxacin and aztreonam (pt is listed to have severe allergy to penicillins) Qualifiers: Pneumonia type: due to unspecified organism Qualified Code(s): J18.1 - Lobar pneumonia, unspecified organism (4) Pulmonary edema Current visit: Yes Status: Suspected CXR reported to show pulmonary edema. Patient had an echocardiogram in December 2016, which showed LVEF of 55%. We will check BNP - if elevated, consider IV lasix. Qualifiers: Chronicity: acute Qualified Code(s): J81.0 - Acute pulmonary edema (5) Acute kidney injury Current visit: Yes Status: Acute Monitor renal function (6) Diabetes mellitus Current visit: Yes Status: Chronic Patient had hemoglobin A1c of 6.6% in December 2015. Start sliding scale insulin. Continue home medications. Will need to be cautious, as the steroids can increase the serum glucose levels. 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 Pt was seen by the recyclable materials collector, who advised PET scan. I do not see results of the PET scan in the system. Morning team to review records from the PCP or recyclable materials collector's office, and to consider further w/u. (8) Morbid obesity Current visit: Yes Status: Chronic Qualifiers: Obesity type: unspecified obesity type Qualified Code(s): E66.01 - Morbid ( severe) obesity due to excess calories (9) DVT prophylaxis Current visit: Yes Status: Acute [facility] Internal Medicine - H&P: HPI Chief complaint: Shortness of breath Admitted From: Emergency Dept Plans for Post Hospital Care: Transfer [facility] Facility History of present illness: Ms. Mclaughlin is a 66 year old female with medical history of hypertension, CAD, CVA, chronic active smoker, marijuana use, legally blind in the right eye, prior h/o breast cancer, was noted to have lung nodule on the CT chest from 2015 (and was seen by the recyclable materials collector Dr Cortez, who advised PET scan. I do not see results in the system); COPD (?? on long-term oxygen therapy per prior records), diabetes (per prior records, but pt doesnt think she has diabetes). She is a resident of [facility]. Per the notes from the [facility], she was noted to be short of breath and her oxygen saturation is worried about 77% on room air. Oxygen saturations apparently improved with supplemental oxygen. Patient reports some shortness of breath, occasional cough with minimal expectoration. She denies chest pain, fever, chills, nausea , vomiting, abdominal pain, dysuria, hematuria, change in bowel habits. She was evaluated in the emergency department. CXR read by the radiologist as pulmonary edema. She was treated for atypical pneumonia/healthcare associated pneumonia with levofloxacin and vancomycin. There was an order for meropenem but that was not given yet. She also was given Solu-Medrol and duo-neb. She is admitted to the hospitalist service for further w/u and management. Past Med Surg Social Fam HX - Past Medical History Medical history: arthritis, cancer, COPD, coronary artery disease, CVA, DVT, diabetes, hyperlipidemia, hypertension, malignancy, renal disease Psychiatric history: bipolar, depression - Past Surgical History Surgical History: , hysterectomy, other - Social History Smoking Status: Current every day smoker Packs per day: 1/2-1 Smokeless Tobacco Status: No Alcohol use: none Drug use: none - Family History Mother Adopted: Yes Living Status: Still Living Father Adopted: Yes Family Member Ethnicity: Non- Living Status: Hx Family Cardiac Disorders: Yes Hx Family Respiratory Disorders: No Hx Family Cancer: No Hx Family GI Disorders: No Hx Family Endocrine Disorder: No Hx Family Neuromuscular Disorders: No Hx Family Neurologic Disorders: No Hx Family HEENT Disorders: No Hx Family Autoimmune Disorders: No Internal Medicine - H&P: Meds Albuterol Sulfate [Proair Respiclick] 2 puff IH Q4H PRN 09/29/15 [History] Fluticasone/Salmeterol [Advair 250-50 Diskus] 2 puff IH BID 09/29/15 [History] Gabapentin [Neurontin] 600 mg PO TID 09/29/15 [History] Insulin ASPART [NovoLOG] 15 unit SQ TIDWM 09/29/15 [History] Insulin Glargine [Lantus] 74 unit SQ QPM 09/29/15 [History] Lansoprazole [Prevacid] 30 mg PO DAILY 09/29/15 [History] Lisinopril [Zestril] 10 mg PO DAILY 09/29/15 [History] Tiotropium [Spiriva] 1 cap IH DAILY 09/29/15 [History] Albuterol Neb [Proventil Neb] 2.5 mg IH Q4H PRN 11/29/16 [History] FLUoxetine HCl [Fluoxetine HCl] 40 mg PO DAILY 01/19/17 [History] Atorvastatin [Lipitor] 40 mg PO HS #30 tablet 01/21/17 [Rx] Clopidogrel [Plavix] 75 mg PO DAILY #30 tablet 01/21/17 [Rx] Ipratropium/Albuterol Neb [Duoneb] 3 ml IH TID #60 inhsol 01/21/17 [Rx] Acetaminophen [Tylenol] 1,000 mg PO Q6HR PRN 02/08/17 [History] Allergies aspirin [ASA] Allergy (Verified 02/08/17 12:21) Anaphylaxis bupropion [From Wellbutrin] Allergy (Verified 02/08/17 12:21) Agitated Penicillins Allergy (Verified 02/08/17 12:21) Anaphylaxis Sulfa (Sulfonamide Antibiotics) Allergy (Verified 02/08/17 12:21) Vomiting All Systems PM: A 10-system review of systems was performed and is negative for pertinent findings except as documented above in the HPI. - Constitutional Vitals: Temp Pulse Resp BP Pulse Ox 98.3 F 83 19 107/59 89 03/16/17 01:24 03/16/17 01:24 03/16/17 01:24 03/16/17 01:24 03/16/17 01:24 Exam: General: Not in acute distress at the time of my evaluation HEENT: Oral mucosa is dry. No conjunctival palor or scleral icterus. 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 Bilateral basal crackles. Cardiac: Heart sounds masked by wheezing Abdomen: Obese, non tender. Bowel sounds present Genitourinary: No mon catheter Neurological: Somnolent and arousable. Able to converse Psych: Not aggressive or agitated Extremities: Mild leg edema Skin: No generalized rash Internal Med - H&P Results - Labs CBC & Chem 7: 03/15/17 21:38 03/15/17 21:38 - EKG Data -: EKG Interpreted by Myself EKG shows normal: sinus rhythm Rate: normal - Impressions ITS Impressions Chest X-Ray 03/15/17 21:14 IMPRESSION: Findings are suggestive of pulmonary edema. D/ / Aram Song MD / Aram Song MD Interpreting Provider: Aram Song MD
[2017-03-16] MEDS ORDERED: Naloxone 0.4 MG/ML INJ IVP PRN (02:15)
[2017-03-16] MEDS ORDERED: *HR* Dextrose 50 % in Water (Syg) 50 ML SYRINGE IVP PRN (02:20)
[2017-03-16] MEDS ORDERED: Dextrose Gel 15 GM PO PRN ×2 (02:20)
[2017-03-16] MEDS ORDERED: D5% in Water 1,000 ML IVC PRN (02:20)
[2017-03-16] MEDS: Aztreonam 1,000 MG in D5% in Water (Mini-Bag+) 100 ML IVPB SCH ×2 (02:59→09:03)
[2017-03-16] MEDS ORDERED: Levofloxacin 750 MG/150 ML 750 MG/150 ML BAG IVPB SCH (03:00)
[2017-03-16 03:31] LABS: Basophils % 0.1 %; Hematocrit 42.8 % (35.3-44.9); Hemoglobin 13.1 g/dL (11.5-15.4); Immature Granulocytes % 0.5 % (0-4); Immature Platelets 5.1 % (1.1-6.1); Lymphocytes # 0.5 K/mcL (0.6-4.6); Lymphocytes % 3.8 %; Mean Corpuscular HGB Conc 30.6 g/dL (31.6-35.5); Mean Corpuscular Hemoglobin 27.3 pg (28.0-33.3); Mean Corpuscular Volume 89.2 fL (83.0-100.0); Mean Platelet Volume 9.9 fL (9.4-12.4); Monocytes # 0.1 K/mcL (0.0-1.3); Monocytes % 0.9 %; Neutrophils # 12.1 K/mcL (1.6-8.9); Platelet Count 222 K/mcL (140-400); Red Cell Distribution Width 13.3 % (11.5-14.5); Segmented Neutrophils % 94.7 %
[2017-03-16 03:44] LABS: Calcium 9.1 mg/dL (8.6-10.8)
[2017-03-16] MEDS ORDERED: 0.9 % Sodium Chloride 500 ML IVC ONE (04:18)
[2017-03-16] MEDS ORDERED: Vancomycin 1,750 MG in D5% in Water 250 ML IVPB SCH (05:00)
[2017-03-16] MEDS: *HR* Enoxaparin 40 MG/0.4 ML SYRINGE SQ SCH (05:04)
[2017-03-16] MEDS: Ipratropium/Albuterol Neb 3 ML IH SCH ×5 (05:12→23:17)
[2017-03-16] MEDS: Insulin LISPRO 300 UNITS/3 ML VIAL SQ SCH ×4 (08:00→18:36)
[2017-03-16] MEDS ORDERED: MethylPREDNISolone 40 MG/ML VIAL IVP SCH (08:00)
[2017-03-16] MEDS ORDERED: Aminoglycoside Consult 1 EACH MC ONE (08:11)
[2017-03-16] MEDS: 0.9 % Sodium Chloride 1,000 ML IVC SCH ×2 (09:13→23:58)
[2017-03-16] MEDS ORDERED: Acetaminophen 325 MG TABLET PO PRN (12:36)
[2017-03-16] MEDS: predniSONE 20 MG TABLET PO SCH (13:56)
--- NOTE | 2017-03-16 16:38 | Internal Med Progress Note ---
Date of Encounter: 03/16/17 Time of Encounter: 11:20 - Assessment and plan (1) COPD exacerbation Current Visit: No Status: Acute Assessment and plan: The patient was seen and examined during rounds, she is alert, awake, oriented. No fever, not in the setting my encounter with the patient. No significant wheezing during my evaluation. At this point, I believe that is reasonable to de-escalate antibiotics, we will continue with Levaquin for now and monitor the patient clinically. Additionally , we will follow cultures. The patient does not look septic, there is mild leukocytosis. However, patient has received steroids. I would decrease the dose of steroids for now, I will give prednisone 40 mg daily. Patient has history of a stroke and a documented allergy to aspirin, we will start her on Plavix. She is a chronic active smoker, smoking cessation was strongly recommended. The patient is otherwise stable, she should get better, if stable she may be discharged back to [facility] care facility tomorrow. I discussed this with the patient, she expressed understanding. She has a long nodule as per medical records, we will strongly advised her to follow up for this medical problem. (2) Morbid obesity Current Visit: Yes Status: Chronic Qualifiers: Obesity type: unspecified obesity type Qualified Code(s): E66.01 - Morbid ( severe) obesity due to excess calories (3) Hypoxia Current Visit: No Status: Acute (4) DVT prophylaxis Current Visit: No Status: Acute (5) Tobacco abuse Current Visit: No Status: Chronic (6) Acute respiratory failure Current Visit: No Status: Acute Qualifiers: Respiratory failure complication: hypoxia Qualified Code(s): J96.01 - Acute respiratory failure with hypoxia (7) Diabetes mellitus Current Visit: Yes Status: Chronic Qualifiers: Diabetes mellitus type: type 2 Diabetes mellitus complication status: without complication Diabetes mellitus group home insulin use: with termite treater use Qualified Code(s): E11.9 - Type 2 diabetes mellitus without complications ; Z79.4 - 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 Patient states that was admitted due to shortness of breath. During this encounter the patient is feeling much better, denies fever, shortness of breath. She is states that she used to be on home oxygen, however she is not using home oxygen anymore. She is a poor historian. - Constitutional Vitals: Temp Pulse Resp BP Pulse Ox 97.9 F 80 16 107/58 94 03/16/17 15:37 03/16/17 15:37 03/16/17 16:10 03/16/17 15:37 03/16/17 16:10 General appearance: Present: A&O X 3, morbidly obese, pleasant, no acute distress - Head Head exam: Present: atraumatic, normocephalic - Eye Eye exam: Present: PERRL, conjuntiva pink, sclera anicteric Pupils: Present: PERRL - Neck Neck exam general surgery: Present: supple, trachea midline. Absent: lymphadenopathy - Respiratory Respiratory exam: Present: decreased breath sounds. Absent: accessory muscle use, rales, rhonchi, wheezes - Cardiovascular Cardiovascular exam: Present: RRR, +S1, +S2. Absent: diastolic murmur, gallop, rubs, systolic murmur - GI/Abdominal GI/Abdominal exam: Present: normal bowel sounds, soft, no peritoneal signs. Absent: distended, tenderness - Extremities Exam Extremities exam: Present: warm, radial pulses palpable and symetrical. Absent : calf tenderness, cyanotic, pedal edema - Neurological Exam Neurological exam: Present: CN II-XII intact, oriented X3, no focal deficits. Absent: pronater drift, facial droop, speech deficit - Skin Skin exam: Present: dry, intact Internal Medicine: Result - Labs CBC & Chem 7: 03/16/17 03:23 03/16/17 11:57 Labs: Short CBC 03/16/17 Range/Units 03:23 WBC 12.8 H (4.3-11.1) K/mcL Hgb 13.1 (11.5-15.4) g/dL Hct 42.8 (35.3-44.9) % Plt Count 222 (140-400) K/mcL Neutrophils # 12.1 H (1.6-8.9) K/mcL BMP 03/16/17 03/16/17 03:23 11:57 Sodium 135 L Potassium 5.0 H 4.5 Chloride 99 Carbon Dioxide 29 BUN 31 H Creatinine 1.31 H Glucose 237 H Calcium 9.1 Consult Discharge Plan - Plan Referrals: NO,PCP [Primary Care Provider] -
[2017-03-16] MEDS ORDERED: Vancomycin 2,000 MG in D5% in Water 500 ML IVPB SCH (20:00)
--- NOTE | 2017-03-16 20:41 | Electrocardiograph Report ---
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
[2017-03-16] MEDS ORDERED: Insulin LISPRO 300 UNITS/3 ML VIAL SQ SCH (21:00)
[2017-03-16] MEDS ORDERED: Vancomycin 1,750 MG in D5% in Water 500 ML IVPB SCH (22:00)
[2017-03-16] MEDS ORDERED: Meropenem 1,000 MG in 0.9 % Sodium Chloride Mini Bag 100 ML IVPB ONE (22:31)
[2017-03-17] MEDS ORDERED: Levofloxacin 750 MG/150 ML 750 MG/150 ML BAG IVPB SCH (03:00)
[2017-03-17] MEDS: Ipratropium/Albuterol Neb 3 ML IH SCH ×2 (04:08→10:37)
[2017-03-17 05:37] LABS: Calcium 8.8 mg/dL (8.6-10.8); Magnesium 1.7 mg/dL (1.6-2.6); Potassium 4.8 mEq/L (3.5-4.5)
[2017-03-17 06:45] LABS: Hematocrit 38.3 % (35.3-44.9); Hemoglobin 11.8 g/dL (11.5-15.4); Immature Granulocytes % 0.5 % (0-4); Lymphocytes # 0.9 K/mcL (0.6-4.6); Lymphocytes % 9.4 %; Mean Corpuscular HGB Conc 30.8 g/dL (31.6-35.5); Mean Corpuscular Hemoglobin 27.6 pg (28.0-33.3); Mean Corpuscular Volume 89.5 fL (83.0-100.0); Mean Platelet Volume 10.8 fL (9.4-12.4); Monocytes # 0.6 K/mcL (0.0-1.3); Monocytes % 5.7 %; Neutrophils # 8.1 K/mcL (1.6-8.9); Platelet Count 223 K/mcL (140-400); Red Blood Count 4.28 M/mcL (3.82-4.97); Red Cell Distribution Width 13.2 % (11.5-14.5); Segmented Neutrophils % 84.4 %
[2017-03-17] MEDS: *HR* Enoxaparin 40 MG/0.4 ML SYRINGE SQ SCH (06:51)
[2017-03-17 07:45] VITALS: BP 117/48
[2017-03-17] MEDS: predniSONE 20 MG TABLET PO SCH (08:53)
[2017-03-17] MEDS: Insulin LISPRO 300 UNITS/3 ML VIAL SQ SCH (08:54)
--- NOTE | 2017-03-17 10:11 | Discharge Summary ---
Date of Encounter: 03/17/17 Time of Encounter: 10:00 - Discharge Diagnosis (1) COPD exacerbation Priority: Primary Status: Acute (2) Morbid obesity Priority: Secondary Status: Chronic Qualifiers: Obesity type: unspecified obesity type Qualified Code(s): E66.01 - Morbid ( severe) obesity due to excess calories (3) Hypoxia Priority: Secondary Status: Acute (4) DVT prophylaxis Priority: Secondary Status: Acute (5) Tobacco abuse Priority: Secondary Status: Chronic (6) Acute respiratory failure Priority: Secondary Status: Acute Qualifiers: Respiratory failure complication: hypoxia Qualified Code(s): J96.01 - Acute respiratory failure with hypoxia (7) Diabetes mellitus Priority: Secondary Status: Chronic Qualifiers: Diabetes mellitus type: type 2 Diabetes mellitus complication status: without complication Diabetes mellitus longterm insulin use: with longterm use Qualified Code(s): E11.9 - Type 2 diabetes mellitus without complications ; Z79.4 - care home (current) use of insulin (8) Pulmonary nodule Priority: Secondary Status: Chronic - Discharge Medications Prescriptions: Clopidogrel [Plavix] 75 mg PO DAILY #30 tablet Levofloxacin [Levaquin] 750 mg PO DAILY #4 tablet predniSONE [PredniSONE] 40 mg PO DAILY #4 tablet Home Medications: Albuterol Sulfate [Proair Respiclick] 2 puff IH Q4H PRN 09/29/15 [History] Fluticasone/Salmeterol [Advair 250-50 Diskus] 2 puff IH BID 09/29/15 [History] Gabapentin [Neurontin] 600 mg PO TID 09/29/15 [History] Insulin ASPART [NovoLOG] 15 unit SQ TIDWM 09/29/15 [History] Insulin Glargine [Lantus] 74 unit SQ QPM 09/29/15 [History] Lansoprazole [Prevacid] 30 mg PO DAILY 09/29/15 [History] Lisinopril [Zestril] 10 mg PO DAILY 09/29/15 [History] Tiotropium [Spiriva] 1 cap IH DAILY 09/29/15 [History] Albuterol Neb [Proventil Neb] 2.5 mg IH Q4H PRN 11/29/16 [History] FLUoxetine HCl [Fluoxetine HCl] 40 mg PO DAILY 01/19/17 [History] Atorvastatin [Lipitor] 40 mg PO HS #30 tablet 01/21/17 [Rx] Clopidogrel [Plavix] 75 mg PO DAILY #30 tablet 01/21/17 [Rx] Ipratropium/Albuterol Neb [Duoneb] 3 ml IH TID #60 inhsol 01/21/17 [Rx] Acetaminophen [Tylenol] 1,000 mg PO Q6HR PRN 02/08/17 [History] Clopidogrel [Plavix] 75 mg PO DAILY #30 tablet 03/17/17 [Rx] Levofloxacin [Levaquin] 750 mg PO DAILY #4 tablet 03/17/17 [Rx] predniSONE [PredniSONE] 40 mg PO DAILY #4 tablet 03/17/17 [Rx] Allergies/Adverse Reactions: Allergies aspirin [ASA] Allergy (Verified 03/16/17 10:42) Anaphylaxis Penicillins Allergy (Verified 03/16/17 10:42) Anaphylaxis bupropion [From Wellbutrin] Adverse Reaction (Verified 03/16/17 10:42) Agitated Sulfa (Sulfonamide Antibiotics) Adverse Reaction (Verified 03/16/17 10:42) Vomiting Date of admission: 03/16/17 02:15 Primary care physician: PCP NO Consults: 03/16/17 10:10 Consult to Invasive Line Access Team [CONS] Routine Reason for Consult: multiple sticks unable to obtain access. Line Type: EPIV Discharging clinician: Marcos Ramirez Anticipated date of discharge: 03/17/17 - Patient Status Disposition: Transfer SNF Condition: Fair Functional capacity at discharge: independent ambulation Overall status at discharge: patient is back to baseline - Discharge Instructions Follow Up With: NO,PCP [Primary Care Provider] - Additional Instructions: follow up with pulmonology for history of lung nodule. - Diet and Activity Activity: increase activity as tolerated Diet: advance to your usual diet Interval History: Ms. Mclaughlin is a 66 year old female with medical history of hypertension, CAD, CVA, chronic active smoker, marijuana use, legally blind in the right eye, prior h/o breast cancer, was noted to have lung nodule on the CT chest from 2015 (and was seen by the inside sales advisor Dr Cortez, who advised PET scan. I do not see results in the system); COPD (?? on long-term oxygen therapy per prior records), diabetes (per prior records, but pt doesnt think she has diabetes). She is a resident of [facility]. Per the notes from the half-way, she was noted to be short of breath and her oxygen saturation is worried about 77% on room air. Oxygen saturations apparently improved with supplemental oxygen. Patient reports some shortness of breath, occasional cough with minimal expectoration. She denies chest pain, fever, chills, nausea , vomiting, abdominal pain, dysuria, hematuria, change in bowel habits. She was evaluated in the emergency department. CXR read by the radiologist as pulmonary edema. She was treated for atypical pneumonia/healthcare associated pneumonia with levofloxacin and vancomycin. There was an order for meropenem but that was not given yet. She also was given Solu-Medrol and duo-neb. She is admitted to the hospitalist service for further w/u and management. Hospital course: Ms. Mclaughlin is a 66 year old female. The patient was seen and examined during rounds, she is alert, awake, oriented. No fever, not in the setting my encounter with the patient. No significant wheezing during my evaluation. At this point, I believe that is reasonable to continue with Levaquin and complete an antibiotic ocurse for her copd exacerbation. No evidence of pneumonia. The patient does not look septic, there is mild leukocytosis. However, patient has received steroids. I would complete a 5 days corse of prednisone 40 mg daily. Patient has history of a stroke and a documented allergy to aspirin, we will discharge her on Plavix. She is a chronic active smoker, smoking cessation was strongly recommended. The patient is otherwise stable, she will be discharged back to extended care facility today. I discussed this with the patient, she expressed understanding. She has a long nodule as per medical records, we will strongly advised her to follow up with pulmonology for this medical problem. - Time Spent with Patient Total time spent providing and/or coordinating discharge services: - Constitutional Vitals: Temp Pulse Resp BP Pulse Ox 98.2 F 79 18 117/48 94 03/17/17 07:42 03/17/17 07:42 03/17/17 07:42 03/17/17 07:42 03/17/17 08:00 General appearance: Present: A&O X 3, morbidly obese, pleasant, no acute distress - Head Head exam: Present: atraumatic, normocephalic - Eye Eye exam: Present: PERRL, conjuntiva pink, sclera anicteric Pupils: Present: PERRL - Neck Neck exam general surgery: Present: supple, trachea midline. Absent: lymphadenopathy - Respiratory Respiratory exam: Present: CTAB. Absent: accessory muscle use, rales, rhonchi, wheezes - Cardiovascular Cardiovascular exam: Present: RRR, +S1, +S2. Absent: diastolic murmur, gallop, rubs, systolic murmur - GI/Abdominal GI/Abdominal exam: Present: normal bowel sounds, soft, no peritoneal signs. Absent: distended, tenderness - Extremities Exam Extremities exam: Present: warm, radial pulses palpable and symetrical. Absent : calf tenderness, cyanotic, pedal edema - Neurological Exam Neurological exam: Present: CN II-XII intact, oriented X3, no focal deficits. Absent: pronater drift, facial droop, speech deficit - Skin Skin exam: Present: dry, intact
--- NOTE | 2017-03-17 10:25 | Physician Discharge Referral ---
ExtendedCare Referral Info Transfer To: [facility] - Diagnosis (1) COPD exacerbation Status: Acute (2) Morbid obesity Status: Chronic (3) Hypoxia Status: Acute (4) DVT prophylaxis Status: Acute (5) Tobacco abuse Status: Chronic (6) Acute respiratory failure Status: Acute (7) Diabetes mellitus Status: Chronic (8) Pulmonary nodule Status: Chronic - Transfer Medications Prescriptions: Clopidogrel [Plavix] 75 mg PO DAILY #30 tablet Levofloxacin [Levaquin] 750 mg PO DAILY #4 tablet predniSONE [PredniSONE] 40 mg PO DAILY #4 tablet Home Medications: Albuterol Sulfate [Proair Respiclick] 2 puff IH Q4H PRN 09/29/15 [History] Fluticasone/Salmeterol [Advair 250-50 Diskus] 2 puff IH BID 09/29/15 [History] Gabapentin [Neurontin] 600 mg PO TID 09/29/15 [History] Insulin ASPART [NovoLOG] 15 unit SQ TIDWM 09/29/15 [History] Insulin Glargine [Lantus] 74 unit SQ QPM 09/29/15 [History] Lansoprazole [Prevacid] 30 mg PO DAILY 09/29/15 [History] Lisinopril [Zestril] 10 mg PO DAILY 09/29/15 [History] Tiotropium [Spiriva] 1 cap IH DAILY 09/29/15 [History] Albuterol Neb [Proventil Neb] 2.5 mg IH Q4H PRN 11/29/16 [History] FLUoxetine HCl [Fluoxetine HCl] 40 mg PO DAILY 01/19/17 [History] Atorvastatin [Lipitor] 40 mg PO HS #30 tablet 01/21/17 [Rx] Clopidogrel [Plavix] 75 mg PO DAILY #30 tablet 01/21/17 [Rx] Ipratropium/Albuterol Neb [Duoneb] 3 ml IH TID #60 inhsol 01/21/17 [Rx] Acetaminophen [Tylenol] 1,000 mg PO Q6HR PRN 02/08/17 [History] Clopidogrel [Plavix] 75 mg PO DAILY #30 tablet 03/17/17 [Rx] Levofloxacin [Levaquin] 750 mg PO DAILY #4 tablet 03/17/17 [Rx] predniSONE [PredniSONE] 40 mg PO DAILY #4 tablet 03/17/17 [Rx] Allergies/Adverse Reactions: Allergies aspirin [ASA] Allergy (Verified 03/16/17 10:42) Anaphylaxis Penicillins Allergy (Verified 03/16/17 10:42) Anaphylaxis bupropion [From Wellbutrin] Adverse Reaction (Verified 03/16/17 10:42) Agitated Sulfa (Sulfonamide Antibiotics) Adverse Reaction (Verified 03/16/17 10:42) Vomiting - Respiratory Orders Oxygen / L per min (4) Smoking Cessation: Smoking cessation has been advised. For more information, call the [place] Tobacco Quit Line at 3-234-DDBZ-NOW. - Advance Directives Code Status: Full Code - Mobility Orders Ambulate - Rehabiliation Orders Rehab Potential: Fair Rehab Orders: ROM Exercises, Evaluation for Physical Therapy, Evaluation for Occupational Therapy CERTIFICATION: I certify that the transfer of the above named patient to an Extended Care Facility is necessary for the continuing treatment of the diagnosis listed. The above information is true and accurate reflection of patient's current condition. Confidential - Redisclosure prohibited without a patient's written consent.
== END 2017-03-17 11:42 | DRG 133 ==
LOC: 2ANU 21:05 → EMEROO 21:05 → 2ANU 03-16 00:49
PROVIDERS: ADMIT Internal Medicine; ATTEND Internal Medicine

== ENCOUNTER 2017-08-13 17:30 | Inpatient (IN) ==
[2017-08-13] MEDS ORDERED: methylPREDNISolone 125 MG/2 ML VIAL IVP ONE (17:33)
[2017-08-13] MEDS ORDERED: Ipratropium/Albuterol Neb 3 ML IH ONE (17:34)
--- NOTE | 2017-08-13 17:34 | Emergency Department Note ---
Disposition Clinical Impression: COPD exacerbation, Lung nodule seen on imaging study, CHF exacerbation Disposition: Admitted As Inpatient Condition: Fair General Adult HPI - General Chief complaint: ED Shortness of Breath/Dyspnea Stated complaint: RILEY Time Seen by Provider: 08/13/17 17:32 - Related Data Home Medications Medication Instructions Recorded Confirmed Albuterol Sulfate [Proair 2 puff IH Q4H PRN 09/29/15 07/06/17 Respiclick] Fluticasone/Salmeterol [Advair 2 puff IH BID 09/29/15 07/06/17 250-50 Diskus] Lansoprazole [Prevacid] 30 mg PO DAILY 09/29/15 07/06/17 Lisinopril [Zestril] 10 mg PO DAILY 09/29/15 07/06/17 Tiotropium [Spiriva] 1 cap IH DAILY 09/29/15 07/06/17 Albuterol Neb [Proventil Neb] 2.5 mg IH Q4H PRN 11/29/16 07/06/17 FLUoxetine HCl [Fluoxetine HCl] 40 mg PO DAILY 01/19/17 07/06/17 Acetaminophen [Tylenol] 1,000 mg PO Q6HR PRN 02/08/17 07/06/17 Previous Rx's Medication Instructions Recorded Atorvastatin [Lipitor] 40 mg PO HS #30 tablet 01/21/17 Clopidogrel [Plavix] 75 mg PO DAILY #30 tablet 01/21/17 Ipratropium/Albuterol Neb [Duoneb] 3 ml IH TID #60 inhsol 01/21/17 Doxycycline 100 mg PO BID #20 07/08/17 Furosemide [Lasix] 40 mg PO DAILY PRN #10 tab 07/08/17 Gabapentin [Neurontin] 600 mg PO TID #21 07/08/17 Insulin Glargine [Lantus] 25 unit SQ DAILY 30 Days mls 07/08/17 Ipratropium/Albuterol Neb [Duoneb] 3 ml IH [id number] inh 07/08/17 clonazePAM [Klonopin] 1 mg PO BID PRN #14 tab 07/08/17 levoFLOXacin [Levaquin] 750 mg PO DAILY #5 tab 07/08/17 predniSONE [PredniSONE] 60 mg PO BIDWM #25 tab 07/08/17 Azithromycin [Azithromycin 6-Tab 250 mg PO PER PKG DI #6 tab 08/13/17 Pack] PredniSONE [Deltasone] 40 mg PO QDPC #10 tablet 08/13/17 Allergies Allergy/AdvReac Type Severity Reaction Status Date / Time aspirin [ASA] Allergy Anaphylaxis Verified 03/16/17 10:42 Penicillins Allergy Anaphylaxis Verified 03/16/17 10:42 bupropion [From Wellbutrin] AdvReac Agitated Verified 03/16/17 10:42 Sulfa (Sulfonamide AdvReac Vomiting Verified 03/16/17 10:42 Antibiotics) Past Medical History - Past Medical History Medical history: Reports: arthritis, cancer, CHF, COPD, coronary artery disease , CVA, DVT, diabetes, hyperlipidemia, hypertension, malignancy, renal disease Surgical history: Reports: , hysterectomy, other Psychiatric history: Reports: anxiety, bipolar, depression - Social History Smoking Status: Current every day smoker Smokeless Tobacco Status: No Alcohol use: Reports: none Drug use: Reports: none Course Vital Signs Temperature 98.8 F 08/13/17 17:32 Pulse Rate 71 08/13/17 17:32 Respiratory Rate 18 08/13/17 17:32 Blood Pressure 166/70 08/13/17 17:32 O2 Sat by Pulse Oximetry 91 08/13/17 17:32 Temperature 98.8 F 08/13/17 17:32 Pulse Rate 71 08/13/17 17:32 Respiratory Rate 22 08/13/17 22:32 Blood Pressure 131/71 08/13/17 20:20 O2 Sat by Pulse Oximetry 91 08/13/17 22:32 Oxygen Delivery Oxygen Delivery Nasal Cannula Medical Decision Making - Lab Data Result diagrams: 08/13/17 17:41 08/13/17 17:41 Lab Results 08/13/17 08/13/17 08/13/17 Range/Units 17:41 17:41 17:41 WBC 5.3 (4.3-11.1) K/mcL RBC 6.32 H (3.82-4.97) M/mcL Hgb 13.8 (11.5-15.4) g/dL Hct 49.6 H (35.3-44.9) % MCV 78.5 L (83.0-100.0) fL MCH 21.8 L (28.0-33.3) pg MCHC 27.8 L (31.6-35.5) g/dL RDW 23.9 H (11.5-14.5) % Plt Count 249 (140-400) K/mcL MPV 9.1 L (9.4-12.4) fL Immature Gran % 0.2 (0-4) % Seg Neutrophils % 70.1 % Lymphocytes % 21.6 % Monocytes % 6.6 % Eosinophils % 1.3 % Basophils % 0.2 % Neutrophils # 3.7 (1.6-8.9) K/mcL Lymphocytes # 1.1 (0.6-4.6) K/mcL Monocytes # 0.4 (0.0-1.3) K/mcL Eosinophils # 0.1 (0.0-0.6) K/mcL Basophils # 0.0 (0.0-0.2) K/mcL Platelet Estimate Normal (Normal) Polychromasia 1+ A (Not Present) Hypochromasia Present A (Not Present) Poikilocytosis 1+ A (Not Present) Anisocytosis 2+ A (Not Present) Sodium 142 (136-145) mEq/L Potassium 4.1 (3.5-4.5) mEq/L Chloride 104 (98-109) mEq/L Carbon Dioxide 31 H (19-29) mEq/L BUN 11 (7-20) mg/dL Creatinine 0.96 (0.57-1.11) mg/dL Est GFR ( Amer) > 60 (> 60) Est GFR (Non-Af Amer) 58 L (> 60) BUN/Creatinine Ratio 11 (6-26) Glucose 126 H (70-99) mg/dL Calculated Osmolality 295 (280-300) Lactic Acid 0.8 (0.5-2.2) mmol/L Calcium 8.9 (8.6-10.8) mg/dL Total Bilirubin 0.2 (0.2-1.2) mg/dL Direct Bilirubin 0.2 (0.0-0.5) mg/dL Indirect Bilirubin 0.0 (0.0-1.2) mg/dL AST 11 (5-34) Units/L ALT 7 (0-55) Units/L Alkaline Phosphatase 103 (38-126) Units/L Troponin I (0-0.03) ng/mL B-Natriuretic Peptide (0-100) pg/mL Serum Total Protein 6.4 (6.0-8.3) g/dL Albumin 2.5 L (3.5-5.0) g/dL Globulin 3.9 H (2.4-3.5) g/dL Albumin/Globulin Ratio 0.6 L (1.1-2.2) 08/13/17 08/13/17 Range/Units 17:41 17:41 WBC (4.3-11.1) K/mcL RBC (3.82-4.97) M/mcL Hgb (11.5-15.4) g/dL Hct (35.3-44.9) % MCV (83.0-100.0) fL MCH (28.0-33.3) pg MCHC (31.6-35.5) g/dL RDW (11.5-14.5) % Plt Count (140-400) K/mcL MPV (9.4-12.4) fL Immature Gran % (0-4) % Seg Neutrophils % % Lymphocytes % % Monocytes % % Eosinophils % % Basophils % % Neutrophils # (1.6-8.9) K/mcL Lymphocytes # (0.6-4.6) K/mcL Monocytes # (0.0-1.3) K/mcL Eosinophils # (0.0-0.6) K/mcL Basophils # (0.0-0.2) K/mcL Platelet Estimate (Normal) Polychromasia (Not Present) Hypochromasia (Not Present) Poikilocytosis (Not Present) Anisocytosis (Not Present) Sodium (136-145) mEq/L Potassium (3.5-4.5) mEq/L Chloride (98-109) mEq/L Carbon Dioxide (19-29) mEq/L BUN (7-20) mg/dL Creatinine (0.57-1.11) mg/dL Est GFR ( Amer) (> 60) Est GFR (Non-Af Amer) (> 60) BUN/Creatinine Ratio (6-26) Glucose (70-99) mg/dL Calculated Osmolality (280-300) Lactic Acid (0.5-2.2) mmol/L Calcium (8.6-10.8) mg/dL Total Bilirubin (0.2-1.2) mg/dL Direct Bilirubin (0.0-0.5) mg/dL Indirect Bilirubin (0.0-1.2) mg/dL AST (5-34) Units/L ALT (0-55) Units/L Alkaline Phosphatase (38-126) Units/L Troponin I 0.01 (0-0.03) ng/mL B-Natriuretic Peptide 173 H (0-100) pg/mL Serum Total Protein (6.0-8.3) g/dL Albumin (3.5-5.0) g/dL Globulin (2.4-3.5) g/dL Albumin/Globulin Ratio (1.1-2.2) Attestation Statement - Attestation Attestation: I examined this patient and my medical decision-making was reviewed with the Resident Physician. I agree with the documented findings, disposition and treatment plan as described except to the extent set forth below. [id number] time provided Patient arrives from home complaining of dyspnea. She has a history of intermittently oxygen dependent COPD. Visibly dyspneic on exam. She recently moved residences and did not bring her breathing treatment supplies
[2017-08-13] MEDS ORDERED: Ondansetron 4 MG/2 ML VIAL IVP ONE (17:49)
[2017-08-13 17:50] LABS: Basophils % 0.2 %; Eosinophils % 1.3 %; Mean Platelet Volume 9.1 fL (9.4-12.4); Red Blood Count 6.32 M/mcL (3.82-4.97)
[2017-08-13 17:52] LABS: Eosinophils # 0.1 K/mcL (0.0-0.6); Hematocrit 49.6 % (35.3-44.9); Hemoglobin 13.8 g/dL (11.5-15.4); Immature Granulocytes % 0.2 % (0-4); Lymphocytes # 1.1 K/mcL (0.6-4.6); Lymphocytes % 21.6 %; Mean Corpuscular HGB Conc 27.8 g/dL (31.6-35.5); Mean Corpuscular Hemoglobin 21.8 pg (28.0-33.3); Mean Corpuscular Volume 78.5 fL (83.0-100.0); Monocytes # 0.4 K/mcL (0.0-1.3); Monocytes % 6.6 %; Neutrophils # 3.7 K/mcL (1.6-8.9); Platelet Count 249 K/mcL (140-400); Red Cell Distribution Width 23.9 % (11.5-14.5); Segmented Neutrophils % 70.1 %
[2017-08-13 18:07] LABS: Alanine Aminotransferase 7 Units/L (0-55); Albumin 2.5 g/dL (3.5-5.0); Albumin/Globulin Ratio 0.6 (1.1-2.2); Alkaline Phosphatase 103 Units/L (38-126); Aspartate Amino Transferase 11 Units/L (5-34); BUN/Creatinine Ratio 11 (6-26); Bilirubin,Direct 0.2 mg/dL (0.0-0.5); Bilirubin,Total 0.2 mg/dL (0.2-1.2); Blood Urea Nitrogen 11 mg/dL (7-20); Calcium 8.9 mg/dL (8.6-10.8); Carbon Dioxide 31 mEq/L (19-29); Chloride 104 mEq/L (98-109); Globulin 3.9 g/dL (2.4-3.5); Glucose 126 mg/dL (70-99); Osmolality,Calculated 295 (280-300); Potassium 4.1 mEq/L (3.5-4.5); Sodium 142 mEq/L (136-145); Total Protein 6.4 g/dL (6.0-8.3); eGFR For African Americans > 60 (> 60); eGFR For Non-African Americans 58 (> 60)
[2017-08-13 18:13] LABS: Anisocytosis 2+ (Not Present); Platelet Estimate Normal (Normal); Polychromasia 1+ (Not Present)
[2017-08-13 18:14] LABS: Hypochromasia Present (Not Present); Poikilocytosis 1+ (Not Present)
--- NOTE | 2017-08-13 18:22 | Emergency Department Note ---
Disposition Clinical Impression: COPD exacerbation, Lung nodule seen on imaging study CHF exacerbation Qualifiers: Congestive heart failure type: unspecified congestive heart failure type Qualified Code(s): I50.9 - Heart failure, unspecified Disposition: Admitted As Inpatient Condition: Fair Prescriptions: Azithromycin [Azithromycin 6-Tab Pack] 250 mg PO PER PKG DI #6 tab PredniSONE [Deltasone] 40 mg PO QDPC #10 tablet Time of Disposition: 20:02 General Adult HPI - General Chief complaint: ED Shortness of Breath/Dyspnea Stated complaint: RILEY Time Seen by Provider: 08/13/17 17:32 Source: patient, EMS Limitations: no limitations Nursing Notes Reviewed: Yes Vital Signs Reviewed: Yes - History of Present Illness HPI Narrative: 67-year-old female past medical history of COPD and CHF presents to the emergency department with worsening dyspnea. Patient states that she has moved from her home and has not been able to have her DuoNeb treatments. Patient states this feels like a normal COPD exacerbation that she gets hospitalized for. Patient was said to be hypoxic in the low 80s at home. EMS states that she was wheezing throughout. They said that she responded to 4 L of oxygen via nasal cannula. Patient states that she is oxygen dependent at home, however she rarely uses it. Pain Scale: 4 - Related Data Home Medications Medication Instructions Recorded Confirmed Albuterol Sulfate [Proair 2 puff IH Q4H PRN 09/29/15 07/06/17 Respiclick] Fluticasone/Salmeterol [Advair 2 puff IH BID 09/29/15 07/06/17 250-50 Diskus] Lansoprazole [Prevacid] 30 mg PO DAILY 09/29/15 07/06/17 Lisinopril [Zestril] 10 mg PO DAILY 09/29/15 07/06/17 Tiotropium [Spiriva] 1 cap IH DAILY 09/29/15 07/06/17 Albuterol Neb [Proventil Neb] 2.5 mg IH Q4H PRN 11/29/16 07/06/17 FLUoxetine HCl [Fluoxetine HCl] 40 mg PO DAILY 01/19/17 07/06/17 Acetaminophen [Tylenol] 1,000 mg PO Q6HR PRN 02/08/17 07/06/17 Previous Rx's Medication Instructions Recorded Atorvastatin [Lipitor] 40 mg PO HS #30 tablet 01/21/17 Clopidogrel [Plavix] 75 mg PO DAILY #30 tablet 01/21/17 Ipratropium/Albuterol Neb [Duoneb] 3 ml IH TID #60 inhsol 01/21/17 Doxycycline 100 mg PO BID #20 07/08/17 Furosemide [Lasix] 40 mg PO DAILY PRN #10 tab 07/08/17 Gabapentin [Neurontin] 600 mg PO TID #21 07/08/17 Insulin Glargine [Lantus] 25 unit SQ DAILY 30 Days mls 07/08/17 Ipratropium/Albuterol Neb [Duoneb] 3 ml IH [id number] inh 07/08/17 clonazePAM [Klonopin] 1 mg PO BID PRN #14 tab 07/08/17 levoFLOXacin [Levaquin] 750 mg PO DAILY #5 tab 07/08/17 predniSONE [PredniSONE] 60 mg PO BIDWM #25 tab 07/08/17 Azithromycin [Azithromycin 6-Tab 250 mg PO PER PKG DI #6 tab 08/13/17 Pack] PredniSONE [Deltasone] 40 mg PO QDPC #10 tablet 08/13/17 Allergies Allergy/AdvReac Type Severity Reaction Status Date / Time aspirin [ASA] Allergy Anaphylaxis Verified 03/16/17 10:42 Penicillins Allergy Anaphylaxis Verified 03/16/17 10:42 bupropion [From Wellbutrin] AdvReac Agitated Verified 03/16/17 10:42 Sulfa (Sulfonamide AdvReac Vomiting Verified 03/16/17 10:42 Antibiotics) All systems ED: reviewed and negative except as stated. Review of Systems: As Per HPI Eyes: Denies: eye pain ENT ED: Denies: ear pain Cardiovascular: Denies: chest pain, palpitations, syncope Respiratory: Reports: cough, dyspnea, wheezes Gastrointestinal: Denies: abdominal pain, nausea, vomiting Genitourinary: Denies: urgency, dysuria Musculoskeletal: Denies: back pain, neck pain Integumentary: Denies: rash Neurological: Denies: headache Endocrine: Denies: fatigue Hematological/Lymphatic: Denies: easy bleeding Past Medical History - Past Medical History Medical history: Reports: arthritis, cancer, CHF, COPD, coronary artery disease , CVA, DVT, diabetes, hyperlipidemia, hypertension, malignancy, renal disease Surgical history: Reports: , hysterectomy, other Psychiatric history: Reports: anxiety, bipolar, depression - Social History Smoking Status: Current every day smoker Smokeless Tobacco Status: No Alcohol use: Reports: none Drug use: Reports: none Physical Exam - General Limitations: no limitations General appearance: alert, in no apparent distress - Head Head exam: other (Right eye appears abnormal but this is not new) - Eye Eye exam: Absent: scleral icterus, conjunctival injection - ENT ENT exam: mucous membranes moist - Neck Neck exam: Present: trachea midline. Absent: tenderness, meningismus - Chest Chest inspection: Present: symmetric chest wall rise - Respiratory Respiratory exam: Present: respiratory distress, wheezes - Cardiovascular Cardiovascular exam: Present: regular rate, normal rhythm, normal heart sounds - Abdominal Exam Abdominal exam: Present: soft, Non-Tender. Absent: distention, guarding, rebound, rigidity - Extremities Exam Extremities exam: Present: normal capillary refill, pedal edema (2+) - Back Exam Back exam: Present: full ROM - Neurological Exam Neurological exam: Present: alert - Psychiatric Psychiatric exam: Present: normal affect, normal mood - Skin Skin exam: Present: warm, dry, intact Course Course Narrative: 67-year-old female presents to the emergency department with what appears to be a COPD exacerbation. Patient was given 3 duo nebs, 125 Solu-Medrol here in the emergency department. Patient appeared to be breathing a lot more comfortably after the DuoNeb treatment. Chest x-ray revealed recurrent edema and trace right pleural fluid. There is an opacity at the right lung apex that appears slightly increased in size from 01/10/2017. [place] recommendation that this nodule received a follow-up chest CT. This patient still slightly high at toxic on a couple liters of oxygen via nasal cannula. We decided to admit the patient at this time. I discussed the findings of the chest x-ray with the patient and that she needed a follow-up chest CT. Also spoke to the hospitalist to have this patient admitted for COPD exacerbation with some underlying CHF exacerbation. I also supervised patient with 40 mg of Lasix in the emergency department. Patient is hemodynamically stable and her respiratory status significantly improved during her stay. We admitted this patient to the hospitalist Chest X-Ray 08/13/17 17:33 IMPRESSION: Persistent or recurrent edema superimposed on chronic lung findings. Trace right pleural fluid. Mild bibasilar airspace disease may represent edema, pneumonia and/or atelectasis. Opacity at the right lung apex appears slightly increased in size from 01/10/2017. A nodule has been noted in this region and a follow-up chest CT to compare with the most recent chest CT of 01/10/2016 is recommended. D/ / Ernie Song MD / Ernie Song MD Interpreting Provider: Ernie Song MD Vital Signs Temperature 98.8 F 08/13/17 17:32 Pulse Rate 71 08/13/17 17:32 Respiratory Rate 18 08/13/17 17:32 Blood Pressure 166/70 08/13/17 17:32 O2 Sat by Pulse Oximetry 91 08/13/17 17:32 Temperature 98.8 F 08/13/17 17:32 Pulse Rate 71 08/13/17 17:32 Respiratory Rate 20 08/13/17 20:20 Blood Pressure 131/71 08/13/17 20:20 O2 Sat by Pulse Oximetry 91 08/13/17 17:44 Oxygen Delivery Oxygen Delivery Nasal Cannula Vital Signs Temperature 98.8 F 08/13/17 17:32 Pulse Rate 71 08/13/17 17:32 Respiratory Rate 18 08/13/17 17:32 Blood Pressure 166/70 08/13/17 17:32 O2 Sat by Pulse Oximetry 91 08/13/17 17:32 Temperature 98.8 F 08/13/17 17:32 Pulse Rate 71 08/13/17 17:32 Respiratory Rate 18 08/13/17 17:44 Blood Pressure 166/70 08/13/17 17:32 O2 Sat by Pulse Oximetry 91 08/13/17 17:44 Oxygen Delivery Oxygen Delivery Room Air Medical Decision Making - Medical Records Medical records reviewed: Yes I reviewed the patient's medical records. - Lab Data Lab results reviewed: Yes I reviewed the patient's lab results. Result diagrams: 08/13/17 17:41 08/13/17 17:41 Lab Results 08/13/17 08/13/17 08/13/17 Range/Units 17:41 17:41 17:41 WBC 5.3 (4.3-11.1) K/mcL RBC 6.32 H (3.82-4.97) M/mcL Hgb 13.8 (11.5-15.4) g/dL Hct 49.6 H (35.3-44.9) % MCV 78.5 L (83.0-100.0) fL MCH 21.8 L (28.0-33.3) pg MCHC 27.8 L (31.6-35.5) g/dL RDW 23.9 H (11.5-14.5) % Plt Count 249 (140-400) K/mcL MPV 9.1 L (9.4-12.4) fL Immature Gran % 0.2 (0-4) % Seg Neutrophils % 70.1 % Lymphocytes % 21.6 % Monocytes % 6.6 % Eosinophils % 1.3 % Basophils % 0.2 % Neutrophils # 3.7 (1.6-8.9) K/mcL Lymphocytes # 1.1 (0.6-4.6) K/mcL Monocytes # 0.4 (0.0-1.3) K/mcL Eosinophils # 0.1 (0.0-0.6) K/mcL Basophils # 0.0 (0.0-0.2) K/mcL Platelet Estimate Normal (Normal) Polychromasia 1+ A (Not Present) Hypochromasia Present A (Not Present) Poikilocytosis 1+ A (Not Present) Anisocytosis 2+ A (Not Present) Sodium 142 (136-145) mEq/L Potassium 4.1 (3.5-4.5) mEq/L Chloride 104 (98-109) mEq/L Carbon Dioxide 31 H (19-29) mEq/L BUN 11 (7-20) mg/dL Creatinine 0.96 (0.57-1.11) mg/dL Est GFR ( Amer) > 60 (> 60) Est GFR (Non-Af Amer) 58 L (> 60) BUN/Creatinine Ratio 11 (6-26) Glucose 126 H (70-99) mg/dL Calculated Osmolality 295 (280-300) Lactic Acid 0.8 (0.5-2.2) mmol/L Calcium 8.9 (8.6-10.8) mg/dL Total Bilirubin 0.2 (0.2-1.2) mg/dL Direct Bilirubin 0.2 (0.0-0.5) mg/dL Indirect Bilirubin 0.0 (0.0-1.2) mg/dL AST 11 (5-34) Units/L ALT 7 (0-55) Units/L Alkaline Phosphatase 103 (38-126) Units/L Troponin I (0-0.03) ng/mL B-Natriuretic Peptide (0-100) pg/mL Serum Total Protein 6.4 (6.0-8.3) g/dL Albumin 2.5 L (3.5-5.0) g/dL Globulin 3.9 H (2.4-3.5) g/dL Albumin/Globulin Ratio 0.6 L (1.1-2.2) 08/13/17 08/13/17 Range/Units 17:41 17:41 WBC (4.3-11.1) K/mcL RBC (3.82-4.97) M/mcL Hgb (11.5-15.4) g/dL Hct (35.3-44.9) % MCV (83.0-100.0) fL MCH (28.0-33.3) pg MCHC (31.6-35.5) g/dL RDW (11.5-14.5) % Plt Count (140-400) K/mcL MPV (9.4-12.4) fL Immature Gran % (0-4) % Seg Neutrophils % % Lymphocytes % % Monocytes % % Eosinophils % % Basophils % % Neutrophils # (1.6-8.9) K/mcL Lymphocytes # (0.6-4.6) K/mcL Monocytes # (0.0-1.3) K/mcL Eosinophils # (0.0-0.6) K/mcL Basophils # (0.0-0.2) K/mcL Platelet Estimate (Normal) Polychromasia (Not Present) Hypochromasia (Not Present) Poikilocytosis (Not Present) Anisocytosis (Not Present) Sodium (136-145) mEq/L Potassium (3.5-4.5) mEq/L Chloride (98-109) mEq/L Carbon Dioxide (19-29) mEq/L BUN (7-20) mg/dL Creatinine (0.57-1.11) mg/dL Est GFR ( Amer) (> 60) Est GFR (Non-Af Amer) (> 60) BUN/Creatinine Ratio (6-26) Glucose (70-99) mg/dL Calculated Osmolality (280-300) Lactic Acid (0.5-2.2) mmol/L Calcium (8.6-10.8) mg/dL Total Bilirubin (0.2-1.2) mg/dL Direct Bilirubin (0.0-0.5) mg/dL Indirect Bilirubin (0.0-1.2) mg/dL AST (5-34) Units/L ALT (0-55) Units/L Alkaline Phosphatase (38-126) Units/L Troponin I 0.01 (0-0.03) ng/mL B-Natriuretic Peptide 173 H (0-100) pg/mL Serum Total Protein (6.0-8.3) g/dL Albumin (3.5-5.0) g/dL Globulin (2.4-3.5) g/dL Albumin/Globulin Ratio (1.1-2.2) - Radiology Data Radiology results reviewed: Yes I reviewed the patient's radiology results. - EKG Data EKG #1 EKG attestation: Yes I reviewed and interpreted this EKG. EKG results narrative: 17:35 Ventricular rate 72 bpm, MD interval 133 ms, QRS duration 85 ms, QTC 425 ms, QTC 450 ms, normal axis. Sinus rhythm with a ventricular rate of 72 bpm. There is no sign of any ischemic changes noted on this electric cart exam. There is no sign of Brugada' s, hypertrophic cardiomyopathy, odell Parkinson White. This electrocardiogram is unchanged from the one performed on 07/04/2017.
[2017-08-13] MEDS ORDERED: Furosemide 40 MG/4 ML VIAL IVP ONE (19:36)
[2017-08-13] MEDS ORDERED: Albuterol 2.5 MG/3 ML NEBULIZER IH PRN (20:44)
[2017-08-13] MEDS ORDERED: Nitroglycerin 0.4 MG TAB.SUBL SL PRN (20:44)
[2017-08-13] MEDS ORDERED: *HR* Dextrose 50 % in Water (Syg) 50 ML SYRINGE IVP PRN (20:44)
[2017-08-13] MEDS ORDERED: D5% in Water 1,000 ML IVC PRN (20:44)
[2017-08-13] MEDS ORDERED: Dextrose Gel 15 GM PO PRN ×2 (20:44)
[2017-08-13] MEDS ORDERED: Naloxone 0.4 MG/ML INJ IVP PRN (20:48)
--- NOTE | 2017-08-13 20:52 | Internal Med History&Physical ---
Date of Encounter: 08/14/17 Time of Encounter: 20:50 Assessment and Plan (1) Acute exacerbation of chronic obstructive airways disease Current visit: Yes Status: Acute Patient presented with progressively worsening shortness of breath. She is a smoker. IV steroid med nebs Mucinex started. (2) Pneumonia Current visit: Yes Status: Acute Chest x-ray bilateral atelectasis. Blood cultures drawn in the ER. IV Levaquin and IV Flagyl started. Qualifiers: Pneumonia type: due to unspecified organism Laterality: bilateral Lung location: lower lobe of lung Qualified Code(s): J18.9 - Pneumonia, unspecified organism (3) Acute diastolic CHF (congestive heart failure) Current visit: Yes Status: Acute Echocardiogram done this year showed LVEF 65%significant valvular or wall motion abnormality patient has mild to moderate pulmonary hypertension with PA pressure 10-20 mmHg. IV Lasix started. (4) Lung nodule seen on imaging study Current visit: Yes Status: Acute Patient has lung nodule on right side which under observation with yearly CT chest. Last one was done in December 2015 and will do a follow-up on today. (5) DM (diabetes mellitus), type 2 Current visit: Yes Status: Chronic Patient is on insulin. Accu-Chek 4 times a day with sliding scale coverage daily. Qualifiers: Diabetes mellitus complication status: with kidney complications Diabetes mellitus complication detail: with chronic kidney disease Chronic kidney disease stage: stage 3 (moderate) Qualified Code(s): E11.22 - Type 2 diabetes mellitus with diabetic chronic kidney disease; N18.3 - Chronic kidney disease, stage 3 (moderate); N18.3 - Chronic kidney disease, stage 3 (moderate); Z79.4 - longterm (current) use of insulin; Z79.4 - longterm (current) use of insulin; Z79.4 - longterm (current) use of insulin; Z79.4 - longterm (current) use of insulin (6) Morbid obesity with BMI of 50.0-59.9, adult Current visit: Yes Status: Acute Counseling provided Internal Medicine - H&P: HPI Chief complaint: Shortness of breath Admitted From: Home Plans for Post Hospital Care: Home History of present illness: Ms. Mclaughlin is a 67 year old female past medical history significant for diabetes hypertension dyslipidemia coronary artery disease C daily CHF CVA. Patient presented with worsening dyspnea for the last few days. Apparently she is not using her nebulizer. As I saw her she is on nasal oxygen and seems to be more or less stable. She has mild cough no chest pain headache and neck pain syncope abdominal pain nausea vomiting diarrhea dysuria urgency frequency hematuria admitted with hematemesis melena. Her previous echocardiogram reviewed showed EF 60% with diastolic dysfunction. Chest x-ray shows bilateral atelectasis consistent with the bilateral pneumonia. She also has nodules on the right side of her lung for which she had a CAT scan in December 2015 last time and it will be repeated tonight for follow-up. Past Med Surg Social Fam HX - Past Medical History Medical history: arthritis, cancer, CHF, COPD, coronary artery disease, CVA, DVT , diabetes, hyperlipidemia, hypertension, malignancy, renal disease Psychiatric history: anxiety, bipolar, depression - Past Surgical History Surgical History: , hysterectomy, other - Social History Smoking Status: Current every day smoker Smokeless Tobacco Status: No Alcohol use: none Drug use: none - Family History Mother Adopted: Yes Living Status: Still Living Father Adopted: Yes Family Member Ethnicity: Non- Living Status: Hx Family Cardiac Disorders: Yes Hx Family Respiratory Disorders: No Hx Family Cancer: No Hx Family GI Disorders: No Hx Family Endocrine Disorder: No Hx Family Neuromuscular Disorders: No Hx Family Neurologic Disorders: No Hx Family HEENT Disorders: No Hx Family Autoimmune Disorders: No Internal Medicine - H&P: Meds Albuterol Sulfate [Proair Respiclick] 2 puff IH Q4H PRN 09/29/15 [History] Fluticasone/Salmeterol [Advair 250-50 Diskus] 2 puff IH BID 09/29/15 [History] Lansoprazole [Prevacid] 30 mg PO DAILY 09/29/15 [History] Lisinopril [Zestril] 10 mg PO DAILY 09/29/15 [History] Tiotropium [Spiriva] 1 cap IH DAILY 09/29/15 [History] Albuterol Neb [Proventil Neb] 2.5 mg IH Q4H PRN 11/29/16 [History] FLUoxetine HCl [Fluoxetine HCl] 40 mg PO DAILY 01/19/17 [History] Atorvastatin [Lipitor] 40 mg PO HS #30 tablet 01/21/17 [Rx] Clopidogrel [Plavix] 75 mg PO DAILY #30 tablet 01/21/17 [Rx] Ipratropium/Albuterol Neb [Duoneb] 3 ml IH TID #60 inhsol 01/21/17 [Rx] Acetaminophen [Tylenol] 1,000 mg PO Q6HR PRN 02/08/17 [History] Doxycycline 100 mg PO BID #20 07/08/17 [Rx] Furosemide [Lasix] 40 mg PO DAILY PRN #10 tab 07/08/17 [Rx] Gabapentin [Neurontin] 600 mg PO TID #21 07/08/17 [Rx] Insulin Glargine [Lantus] 25 unit SQ DAILY 30 Days mls 07/08/17 [Rx] Ipratropium/Albuterol Neb [Duoneb] 3 ml IH [id number] inh 07/08/17 [Rx] clonazePAM [Klonopin] 1 mg PO BID PRN #14 tab 07/08/17 [Rx] levoFLOXacin [Levaquin] 750 mg PO DAILY #5 tab 07/08/17 [Rx] predniSONE [PredniSONE] 60 mg PO BIDWM #25 tab 07/08/17 [Rx] Azithromycin [Azithromycin 6-Tab Pack] 250 mg PO PER PKG DI #6 tab 08/13/17 [Rx] PredniSONE [Deltasone] 40 mg PO QDPC #10 tablet 08/13/17 [Rx] 3 Allergy/AdvReac Type Severity Reaction Status Date / Time Iodinated Contrast- Oral and Allergy Unknown Difficulty Verified 08/14/17 05:21 IV Dye Breathing aspirin [ASA] Allergy Anaphylaxis Verified 03/16/17 10:42 Penicillins Allergy Anaphylaxis Verified 03/16/17 10:42 bupropion [From Wellbutrin] AdvReac Agitated Verified 03/16/17 10:42 Sulfa (Sulfonamide AdvReac Vomiting Verified 03/16/17 10:42 Antibiotics) All Systems PM: A 10-system review of systems was performed and is negative for pertinent findings except as documented above in the HPI. - Constitutional Constitutional: no chills, no fever(s), no night sweats - EENT Eyes: no change in vision, no discharge, no pain, no photophobia Ears: no ear discharge, no ear pain, no tinnitus Nose, mouth and throat: no dysphagia, no nasal discharge, no neck pain, no sore throat - Cardiovascular Cardiovascular ROS IM: no chest pain, no diaphoresis, no dyspnea, no lightheadedness, no palpitations, no syncope - Respiratory Respiratory: no cough, no dyspnea, no wheezing, no excessive phlegm production - Gastrointestinal Gastrointestinal: no abdominal pain, no diarrhea, no hematemesis, no hematochezia, no melena, no nausea, no vomiting - Genitourinary Genitourinary: no change in urinary stream, no dysuria, no flank pain, no hematuria - Musculoskeletal Musculoskeletal ROS IM: no numbness, no tingling - Integumentary Integumentary IM: no rash, no unusual bruising - Neurological Neurological ROS: no confusion, no convulsions, no focal weakness, no numbness, no tingling, no tremor(s) - Hematologic/Lymphatic Hematologic/Lymphatic: no easy bruising - Constitutional Vitals: Temp Pulse Resp BP Pulse Ox 98.8 F 71 20 131/71 91 08/13/17 17:32 08/13/17 17:32 08/13/17 20:20 08/13/17 20:20 08/13/17 17:44 General appearance: Present: A&O X 3, morbidly obese, no acute distress, answers questions appropriately - Head Head exam: Present: atraumatic, normocephalic - Eye Eye exam: Present: PERRL, conjuntiva pink, sclera anicteric Pupils: Present: PERRL - Neck Neck exam general surgery: Present: supple, trachea midline. Absent: lymphadenopathy - Respiratory Respiratory exam: Present: decreased breath sounds. Absent: accessory muscle use, rales, rhonchi, wheezes - Cardiovascular Cardiovascular exam: Present: RRR, +S1, +S2. Absent: diastolic murmur, gallop, rubs, systolic murmur - GI/Abdominal GI/Abdominal exam: Present: normal bowel sounds, soft, no peritoneal signs. Absent: distended, tenderness - Extremities Exam Extremities exam: Present: warm, radial pulses palpable and symmetrical. Absent : calf tenderness, cyanotic, pedal edema - Neurological Exam Neurological exam: Present: CN II-XII intact, oriented X3, no focal deficits. Absent: pronater drift, facial droop, speech deficit - Skin Skin exam: Present: dry, intact Internal Med - H&P Results - Labs CBC & Chem 7: 08/13/17 17:41 08/13/17 17:41
[2017-08-13] MEDS ORDERED: NON-FORMULARY MEDICATION 1 EACH EACH (Insulin Glargine [Lantus] 25 UNIT) SQ SCH (21:00)
[2017-08-13] MEDS: Ipratropium/Albuterol Neb 3 ML IH SCH (22:32)
[2017-08-13] MEDS: Insulin LISPRO 300 UNITS/3 ML VIAL SQ SCH ×2 (22:45→23:19)
[2017-08-13] MEDS: FLUoxetine 20 MG CAPSULE PO SCH (23:18)
[2017-08-13] MEDS: Furosemide 40 MG/4 ML VIAL IVP SCH (23:18)
[2017-08-13] MEDS: Insulin DETEMIR 100 UNIT/ML X5UNITS SQ SCH (23:18)
[2017-08-13] MEDS: methylPREDNISolone 125 MG/2 ML VIAL IVP SCH (23:18)
[2017-08-13] MEDS: Levofloxacin 500 MG/100 ML 500 MG/100 ML BAG IVPB SCH (23:36)
[2017-08-14] MEDS: MetroNIDAZOLE 500 MG/100 ML 500 MG/100 ML BAG IVPB SCH ×4 (00:40→17:06)
[2017-08-14 01:35] LABS: Hemoglobin A1C 5.5 %
[2017-08-14] MEDS ORDERED: MetroNIDAZOLE 250 MG/50 ML 250 MG/50 ML BAG IVPB ONE (01:55)
[2017-08-14] MEDS: Ipratropium/Albuterol Neb 3 ML IH SCH ×4 (04:52→23:07)
[2017-08-14] MEDS: *HR* Enoxaparin 40 MG/0.4 ML SYRINGE SQ SCH (06:22)
[2017-08-14] MEDS: Insulin LISPRO 300 UNITS/3 ML VIAL SQ SCH ×4 (09:31→22:23)
[2017-08-14] MEDS: Furosemide 40 MG/4 ML VIAL IVP SCH (09:43)
[2017-08-14] MEDS: methylPREDNISolone 125 MG/2 ML VIAL IVP SCH ×2 (09:43→17:06)
[2017-08-14] MEDS: FLUoxetine 20 MG CAPSULE PO SCH (09:43)
[2017-08-14] MEDS: Ondansetron 4 MG/2 ML VIAL IVP PRN (10:25)
[2017-08-14 11:13] LABS: Hemoglobin 13.7 g/dL (11.5-15.4); Immature Granulocytes % 0.4 % (0-4); Monocytes % 5.2 %; Red Cell Distribution Width 23.5 % (11.5-14.5)
[2017-08-14 11:14] LABS: Lymphocytes # 0.5 K/mcL (0.6-4.6); Lymphocytes % 10.2 %; Mean Corpuscular Hemoglobin 22.1 pg (28.0-33.3); Mean Platelet Volume 9.4 fL (9.4-12.4); Monocytes # 0.2 K/mcL (0.0-1.3); Neutrophils # 3.9 K/mcL (1.6-8.9); Platelet Count 267 K/mcL (140-400); Segmented Neutrophils % 84.2 %
[2017-08-14 11:19] LABS: Calcium 8.9 mg/dL (8.6-10.8); Potassium 4.5 mEq/L (3.5-4.5)
[2017-08-14 12:27] LABS: Anisocytosis 1+ (Not Present); Hypochromasia Present (Not Present)
--- NOTE | 2017-08-14 12:32 | Electrocardiograph Report ---
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
--- NOTE | 2017-08-14 13:53 | Oncology Inp Consult Note ---
Date of Encounter: 08/14/17 Time of Encounter: 15:00 Assessment and Plan (1) Lung nodule seen on imaging study Status: Acute Assessment and plan: Rt lung spiculated mass, RLL mass/ inflammatory changes and LL nodule, mediastinal necrotic adenopathy, possibly malignancy. Was not biopsied in 01/13, PET was suggested but patient has not obtained one. Suggest evaluation by pulmonary for bronch as outpt/in patient. Patient is agreeable to above. PET as outpatient COPD exacerbation-SOB has improved on 2 lt breathing comfortably. Dd-blghidgmwvs-ncympii, CKD. Echo nl EF Above plan discussed with patient - Data of Consult Requesting Physician: Bisi Palacios CNP Primary Care Provider: PCP NONE - Consult Narrative Reason for consult: lung mass History of present illness: Ms. Mclaughlin is a 67 year old female with history significant for chronic tobacco abuse, COPD exacerbation, history of cellulitis, diastolic congestive heart failure, chronic kidney disease, noted to have a lung mass since at least December 2015 when she was hospitalized for shortness of breath and fall status post antibiotics for pneumonia. At that time pulmonary was consulted who felt that a biopsy of the lung mass would be of risk due to pneumothorax. She was hospitalized July 2017 with the shortness of breath, COPD exacerbation and a follow-up CT scan of the chest was done without contrast for the lung nodule follow-up. CAT scan dated 1013 2016 shows a spiculated mass measuring 4.9 cm that has increased in size, lymph node in the right peritracheal space measuring 1.6 x 1.6 cm, necrotic subcarinal lymph node measuring 2.2 x 1.9 cm in size, patchy consolidation. Lungs right lower lobe mass like lesion measuring 3.7 x 2.2 cm in size left adrenal gland lesion measuring 2.2 cm, density suggestive of adenoma Onc consulted for lung mass. SOB has improved. Uses O2 at home. Denies cough. or chest pain Past Med Surg Social Fam HX - Past Medical History Medical history: arthritis, cancer, CHF, COPD, coronary artery disease, CVA, DVT , diabetes, hyperlipidemia, hypertension, malignancy, renal disease Psychiatric history: anxiety, bipolar, depression - Past Surgical History Surgical History: , hysterectomy, other - Social History Smoking Status: Current every day smoker Packs per day: 1 Smokeless Tobacco Status: No Alcohol use: none Drug use: none - Family History Mother Adopted: Yes Living Status: Still Living Father Adopted: Yes Family Member Ethnicity: Non- Living Status: Hx Family Cardiac Disorders: Yes Hx Family Respiratory Disorders: No Hx Family Cancer: No Hx Family GI Disorders: No Hx Family Endocrine Disorder: No Hx Family Neuromuscular Disorders: No Hx Family Neurologic Disorders: No Hx Family HEENT Disorders: No Hx Family Autoimmune Disorders: No Medications and Allergies Albuterol Sulfate [Proair Respiclick] 2 puff IH Q4H PRN 09/29/15 [History] Fluticasone/Salmeterol [Advair 250-50 Diskus] 2 puff IH BID 09/29/15 [History] Lansoprazole [Prevacid] 30 mg PO DAILY 09/29/15 [History] Lisinopril [Zestril] 10 mg PO DAILY 09/29/15 [History] Tiotropium [Spiriva] 1 cap IH DAILY 09/29/15 [History] Albuterol Neb [Proventil Neb] 2.5 mg IH Q4H PRN 11/29/16 [History] FLUoxetine HCl [Fluoxetine HCl] 40 mg PO DAILY 01/19/17 [History] Atorvastatin [Lipitor] 40 mg PO HS #30 tablet 01/21/17 [Rx] Clopidogrel [Plavix] 75 mg PO DAILY #30 tablet 01/21/17 [Rx] Ipratropium/Albuterol Neb [Duoneb] 3 ml IH TID #60 inhsol 01/21/17 [Rx] Acetaminophen [Tylenol] 1,000 mg PO Q6HR PRN 02/08/17 [History] Doxycycline 100 mg PO BID #20 07/08/17 [Rx] Furosemide [Lasix] 40 mg PO DAILY PRN #10 tab 07/08/17 [Rx] Gabapentin [Neurontin] 600 mg PO TID #21 07/08/17 [Rx] Insulin Glargine [Lantus] 25 unit SQ DAILY 30 Days mls 07/08/17 [Rx] Ipratropium/Albuterol Neb [Duoneb] 3 ml IH [id number] inh 07/08/17 [Rx] clonazePAM [Klonopin] 1 mg PO BID PRN #14 tab 07/08/17 [Rx] levoFLOXacin [Levaquin] 750 mg PO DAILY #5 tab 07/08/17 [Rx] predniSONE [PredniSONE] 60 mg PO BIDWM #25 tab 07/08/17 [Rx] Azithromycin [Azithromycin 6-Tab Pack] 250 mg PO PER PKG DI #6 tab 08/13/17 [Rx] PredniSONE [Deltasone] 40 mg PO QDPC #10 tablet 08/13/17 [Rx] 3 Allergy/AdvReac Type Severity Reaction Status Date / Time Iodinated Contrast- Oral and Allergy Unknown Difficulty Verified 08/14/17 05:21 IV Dye Breathing aspirin [ASA] Allergy Anaphylaxis Verified 03/16/17 10:42 Penicillins Allergy Anaphylaxis Verified 03/16/17 10:42 bupropion [From Wellbutrin] AdvReac Agitated Verified 03/16/17 10:42 Sulfa (Sulfonamide AdvReac Vomiting Verified 03/16/17 10:42 Antibiotics) Review of systems: as in HPI otherwise neg Oncology - Exam - Constitutional Vitals: Temp Pulse Resp BP Pulse Ox 98.0 F 70 16 150/81 93 08/14/17 11:32 08/14/17 11:32 08/14/17 11:32 08/14/17 11:32 08/14/17 11:32 General appearance: obese - Head Head exam: Present: atraumatic, normal inspection - Eye Eye exam: Present: sclera anicteric - ENT ENT exam: Present: mucous membranes dry - Neck Neck exam: Present: full ROM - Respiratory Respiratory exam: Present: CTAB, wheezes - Cardiovascular Cardiovascular exam: Present: +S1, +S2 - GI/Abdominal GI/Abdominal exam: Present: normal bowel sounds, soft - Extremities Exam Extremities exam: Present: normal inspection, pedal edema - Neurological Exam Neurological exam: Present: alert, oriented X3 Oncology - Results Labs: Short CBC 08/14/17 Range/Units 10:35 WBC 4.6 (4.3-11.1) K/mcL Hgb 13.7 (11.5-15.4) g/dL Hct 49.0 H (35.3-44.9) % Plt Count 267 (140-400) K/mcL Neutrophils # 3.9 (1.6-8.9) K/mcL BMP 08/14/17 10:35 Sodium 141 Potassium 4.5 Chloride 100 Carbon Dioxide 34 H BUN 16 Creatinine 1.14 H Glucose [address] chest as noted in HPI Consult Discharge Plan - Plan Referrals: NONE,PCP [Primary Care Provider] -
[2017-08-14] MEDS: Insulin DETEMIR 100 UNIT/ML X5UNITS SQ SCH (13:58)
[2017-08-14] MEDS: clonazePAM 1 MG TABLET PO PRN (17:06)
[2017-08-14] MEDS ORDERED: Ketorolac 30 MG/ML VIAL IVP ONE (18:05)
--- NOTE | 2017-08-14 18:08 | Internal Med Progress Note ---
Date of Encounter: 08/14/17 Time of Encounter: 12:00 - Assessment and plan (1) Lung mass Current Visit: No Status: Chronic Assessment and plan: -Chest CT showed right upper lung mass, measuring up to 4.9 cm that has increased considerably in size compared with prior CT which is concerning for primary lung carcinoma. There are additional lesions within the right lung which could be financial representative of atelectasis and pneumonia; additional neoplasm must also be considered. -Recommendations for PET-CT -Hematology/oncology consulted with recommendation for pulmonary consult for consideration of bronchoscopy for further evaluation. (2) Acute exacerbation of chronic obstructive airways disease Current Visit: Yes Status: Acute Assessment and plan: -Will continue IV Levaquin/Solu-Medrol in addition to DuoNeb's. (3) HTN (hypertension) Current Visit: No Status: Chronic Assessment and plan: -Continue home medications. Qualifiers: Hypertension type: essential hypertension Qualified Code(s): I10 - Essential (primary) hypertension (4) HLD (hyperlipidemia) Current Visit: No Status: Chronic Assessment and plan: -Continue statin. Qualifiers: Hyperlipidemia type: unspecified Qualified Code(s): E78.5 - Hyperlipidemia , unspecified (5) CKD (chronic kidney disease) Current Visit: No Status: Acute Assessment and plan: -Stable; continue to monitor. Qualifiers: Chronic kidney disease stage: stage 3 (moderate) Qualified Code(s): N18.3 - Chronic kidney disease, stage 3 (moderate) (6) DVT prophylaxis Current Visit: No Status: Acute Assessment and plan: Continue subcutaneous Lovenox - Subjective Interval history: No acute events overnight - Constitutional Vitals: Temp Pulse Resp BP Pulse Ox 97.5 F L 66 16 163/81 96 08/14/17 16:24 08/14/17 16:24 08/14/17 16:24 08/14/17 16:24 08/14/17 16:24 General appearance: Present: A&O X 3, morbidly obese, no acute distress, answers questions appropriately Internal Medicine: Result - Labs CBC & Chem 7: 08/14/17 10:35 08/14/17 10:35 Labs: Short CBC 08/14/17 Range/Units 10:35 WBC 4.6 (4.3-11.1) K/mcL Hgb 13.7 (11.5-15.4) g/dL Hct 49.0 H (35.3-44.9) % Plt Count 267 (140-400) K/mcL Neutrophils # 3.9 (1.6-8.9) K/mcL BMP 08/14/17 10:35 Sodium 141 Potassium 4.5 Chloride 100 Carbon Dioxide 34 H BUN 16 Creatinine 1.14 H Glucose 171 H Calcium 8.9 Consult Discharge Plan - Plan Referrals: NONE,PCP [Primary Care Provider] -
[2017-08-14] MEDS: Levofloxacin 500 MG/100 ML 500 MG/100 ML BAG IVPB SCH (22:29)
[2017-08-15] MEDS: MetroNIDAZOLE 500 MG/100 ML 500 MG/100 ML BAG IVPB SCH ×3 (01:05→17:52)
[2017-08-15] MEDS: clonazePAM 1 MG TABLET PO PRN ×2 (01:05→14:46)
[2017-08-15] MEDS: methylPREDNISolone 125 MG/2 ML VIAL IVP SCH ×3 (01:05→17:54)
[2017-08-15] MEDS: Ipratropium/Albuterol Neb 3 ML IH SCH ×4 (04:28→22:50)
[2017-08-15] MEDS: *HR* Enoxaparin 40 MG/0.4 ML SYRINGE SQ SCH (06:04)
[2017-08-15] MEDS: Insulin LISPRO 300 UNITS/3 ML VIAL SQ SCH ×4 (09:32→20:57)
[2017-08-15] MEDS: FLUoxetine 20 MG CAPSULE PO SCH (09:32)
[2017-08-15] MEDS: Furosemide 40 MG/4 ML VIAL IVP SCH (09:40)
[2017-08-15] MEDS: Insulin DETEMIR 100 UNIT/ML X5UNITS SQ SCH (09:44)
[2017-08-15 10:25] LABS: Basophils % 0.1 %
[2017-08-15 10:27] LABS: Hematocrit 49.2 % (35.3-44.9); Hemoglobin 13.8 g/dL (11.5-15.4); Immature Granulocytes % 0.7 % (0-4); Lymphocytes # 0.6 K/mcL (0.6-4.6); Mean Corpuscular Hemoglobin 21.9 pg (28.0-33.3); Mean Corpuscular Volume 78.1 fL (83.0-100.0); Mean Platelet Volume 9.1 fL (9.4-12.4); Monocytes # 0.3 K/mcL (0.0-1.3); Monocytes % 3.7 %; Neutrophils # 6.1 K/mcL (1.6-8.9); Platelet Count 266 K/mcL (140-400); Red Cell Distribution Width 23.1 % (11.5-14.5); Segmented Neutrophils % 87.5 %
[2017-08-15 10:40] LABS: Calcium 9.2 mg/dL (8.6-10.8); Potassium 4.8 mEq/L (3.5-4.5)
[2017-08-15] MEDS: Ondansetron 4 MG/2 ML VIAL IVP PRN (10:43)
[2017-08-15 10:51] LABS: Anisocytosis 1+ (Not Present); Hypochromasia Present (Not Present); Platelet Estimate Normal (Normal)
[2017-08-15 10:52] LABS: Microcytosis Present (Not Present)
--- NOTE | 2017-08-15 12:01 | Pulmonology Consult Note ---
Date of Encounter: 08/15/17 Time of Encounter: 11:00 Assessment and Plan (1) Acute exacerbation of chronic obstructive airways disease Current Visit: Yes Status: Acute Patient presenting with Acute COPD exacerbation agree with antibiotics and steroids . To continue bronchodilators both ABAD and ICS/LABA no clinical and radiological evidence of pneumonia (2) Acute and chronic respiratory failure with hypoxia Current Visit: Yes Status: Acute More likely due to COPD exacerbation will get ABG , as high Bicarbonate suggestive of chronic hypercapnic respiratory failure.To continue O2 supplementation (3) Mass of right lung Current Visit: Yes Status: Chronic Patient had this RUL mass from 2016 lost follow up ,now with 4 cm enlarging spiculated mass with mediastinal LN with necrosis will need EBUS under GA will do outpatient EBUS after her COPD is settled down . It is ok to continue Plavix . Will try to get hold off her daughter i dont think patient understands the disease process . For now plan for outpatient EBUS. History of Present Illness Consult date: 08/15/17 Requesting physician: Jarred Cheney Reason for consult: dyspnea, COPD Chief complaint: Shortness of breadth History of present illness: 67 year old female with past medical history significant for chronic smoking, COPD, CHF comes with increased shortness of breadth , some cough with sputum production, denies any hemoptysis denies any chest pain or shortness of breadth patient has poor exercise tolerance walks around her worse, she says this presentation is her usual COPD exacerbation , patient had this RUL spiculated mass which was in 2015 , patient supposed to follow with PET CT scan with biopsy she didnt follow up . Pulmonary was consulted for enlarging RUL spiculated mass with mediastinal LN. Past Med Surg Social Fam HX - Past Medical History Medical history: arthritis, cancer, CHF, COPD, coronary artery disease, CVA, DVT , diabetes, hyperlipidemia, hypertension, malignancy, renal disease Psychiatric history: anxiety, bipolar, depression - Past Surgical History Surgical History: , hysterectomy, other - Social History Smoking Status: Current every day smoker Packs per day: 1 Smokeless Tobacco Status: No Alcohol use: none Drug use: none - Family History Mother Adopted: Yes Living Status: Still Living Father Adopted: Yes Family Member Ethnicity: Non- Living Status: Hx Family Cardiac Disorders: Yes Hx Family Respiratory Disorders: No Hx Family Cancer: No Hx Family GI Disorders: No Hx Family Endocrine Disorder: No Hx Family Neuromuscular Disorders: No Hx Family Neurologic Disorders: No Hx Family HEENT Disorders: No Hx Family Autoimmune Disorders: No Medications and Allergies Albuterol Sulfate [Proair Respiclick] 2 puff IH Q4H PRN 09/29/15 [History] Fluticasone/Salmeterol [Advair 250-50 Diskus] 2 puff IH BID 09/29/15 [History] Lansoprazole [Prevacid] 30 mg PO DAILY 09/29/15 [History] Lisinopril [Zestril] 10 mg PO DAILY 09/29/15 [History] Tiotropium [Spiriva] 1 cap IH DAILY 09/29/15 [History] Albuterol Neb [Proventil Neb] 2.5 mg IH Q4H PRN 11/29/16 [History] FLUoxetine HCl [Fluoxetine HCl] 40 mg PO DAILY 01/19/17 [History] Atorvastatin [Lipitor] 40 mg PO HS #30 tablet 01/21/17 [Rx] Clopidogrel [Plavix] 75 mg PO DAILY #30 tablet 01/21/17 [Rx] Ipratropium/Albuterol Neb [Duoneb] 3 ml IH TID #60 inhsol 01/21/17 [Rx] Acetaminophen [Tylenol] 1,000 mg PO Q6HR PRN 02/08/17 [History] Furosemide [Lasix] 40 mg PO DAILY PRN #10 tab 07/08/17 [Rx] Gabapentin [Neurontin] 600 mg PO TID #21 07/08/17 [Rx] Insulin Glargine [Lantus] 25 unit SQ DAILY 30 Days mls 07/08/17 [Rx] clonazePAM [Klonopin] 1 mg PO BID PRN #14 tab 07/08/17 [Rx] Azithromycin [Azithromycin 6-Tab Pack] 250 mg PO PER PKG DI #6 tab 08/13/17 [Rx] 3 Allergy/AdvReac Type Severity Reaction Status Date / Time Iodinated Contrast- Oral and Allergy Unknown Difficulty Verified 08/14/17 05:21 IV Dye Breathing aspirin [ASA] Allergy Anaphylaxis Verified 03/16/17 10:42 Penicillins Allergy Anaphylaxis Verified 03/16/17 10:42 bupropion [From Wellbutrin] AdvReac Agitated Verified 03/16/17 10:42 Sulfa (Sulfonamide AdvReac Vomiting Verified 03/16/17 10:42 Antibiotics) All Systems: A 10-system review of systems was performed and is negative for pertinent findings except as documented above in the HPI. Physical Examination Vital Signs: Vital Signs, Last 4 Hours Temp Pulse Resp BP Pulse Ox 08/15/17 11:34 18 91 08/15/17 11:07 97.9 F 67 17 134/66 90 08/15/17 09:24 66 22 08/15/17 09:05 66 22 General appearance: appears uncomfortable (due to respiratory distress) Auscultation: bilateral: wheezes (with some poor bilateral air entry ) tearful Results - Laboratory Findings CBC and BMP: 08/15/17 10:07 08/15/17 10:07 Abnormal lab findings: Abnormal lab results RBC 6.30 M/mcL (3.82-4.97) H 08/15/17 10:07 Hct 49.2 % (35.3-44.9) H 08/15/17 10:07 MCV 78.1 fL (83.0-100.0) L 08/15/17 10:07 MCH 21.9 pg (28.0-33.3) L 08/15/17 10:07 MCHC 28.0 g/dL (31.6-35.5) L 08/15/17 10:07 RDW 23.1 % (11.5-14.5) H 08/15/17 10:07 MPV 9.1 fL (9.4-12.4) L 08/15/17 10:07 Polychromasia 1+ (Not Present) A 08/13/17 17:41 Hypochromasia Present (Not Present) A 08/15/17 10:07 Poikilocytosis 1+ (Not Present) A 08/13/17 17:41 Anisocytosis 1+ (Not Present) A 08/15/17 10:07 Microcytosis Present (Not Present) A 08/15/17 10:07 Potassium 4.8 mEq/L (3.5-4.5) H 08/15/17 10:07 Carbon Dioxide 31 mEq/L (19-29) H 08/15/17 10:07 BUN 26 mg/dL (7-20) H D 08/15/17 10:07 Creatinine 1.30 mg/dL (0.57-1.11) H 08/15/17 10:07 Est GFR ( Amer) 50 (> 60) L 08/15/17 10:07 Est GFR (Non-Af Amer) 41 (> 60) L 08/15/17 10:07 Glucose 185 mg/dL (70-99) H 08/15/17 10:07 POC Glucose 167 (58-89) H 08/14/17 20:22 B-Natriuretic Peptide 173 pg/mL (0-100) H 08/13/17 17:41 Albumin 2.5 g/dL (3.5-5.0) L 08/13/17 17:41 Globulin 3.9 g/dL (2.4-3.5) H 08/13/17 17:41 Albumin/Globulin Ratio 0.6 (1.1-2.2) L 08/13/17 17:41 - Clinical Findings Intake & Output: Intake & Output 08/14/17 08/15/17 08/15/17 23:59 07:59 15:59 Intake Total 100 / 100 100 / 100 240 / 240 Output Total 1150 / 1150 Balance 100 / 100 -1050 / -1050 240 / 240 Weight 111.312 kg Consult Discharge Plan - Plan Referrals: NONE,PCP [Primary Care Provider] -
[2017-08-15 16:46] LABS: ABG Base Excess 11 mEq/L (-2 to 3); ABG HCO3 39 mEq/L (21-27); ABG Oxygen Saturation 96 % (95-98); ABG PCO2 60 mmHg (35-45); ABG PH 7.42 pH Units (7.32-7.45); ABG PO2 82 mmHg (85-104); ABG TCO2 40 mEq/L (20-26)
--- NOTE | 2017-08-15 20:22 | Internal Med Progress Note ---
Date of Encounter: 08/15/17 Time of Encounter: 11:00 - Assessment and plan (1) Lung mass Current Visit: No Status: Chronic Assessment and plan: -Chest CT showed right upper lung mass, measuring up to 4.9 cm that has increased considerably in size compared with prior CT which is concerning for primary lung carcinoma. There are additional lesions within the right lung which could be sales and service representative of atelectasis and pneumonia; additional neoplasm must also be considered. -Recommendations for PET-CT -Hematology/oncology consulted with recommendation for pulmonary consult for consideration of bronchoscopy for further evaluation. (2) Acute exacerbation of chronic obstructive airways disease Current Visit: Yes Status: Acute Assessment and plan: -Will continue IV Levaquin/Solu-Medrol in addition to DuoNeb's. (3) HTN (hypertension) Current Visit: No Status: Chronic Assessment and plan: -Continue home medications. Qualifiers: Hypertension type: essential hypertension Qualified Code(s): I10 - Essential (primary) hypertension (4) HLD (hyperlipidemia) Current Visit: No Status: Chronic Assessment and plan: -Continue statin. Qualifiers: Hyperlipidemia type: unspecified Qualified Code(s): E78.5 - Hyperlipidemia , unspecified (5) CKD (chronic kidney disease) Current Visit: No Status: Acute Assessment and plan: -Stable; continue to monitor. Qualifiers: Chronic kidney disease stage: stage 3 (moderate) Qualified Code(s): N18.3 - Chronic kidney disease, stage 3 (moderate) (6) DVT prophylaxis Current Visit: No Status: Acute Assessment and plan: Continue subcutaneous Lovenox - Subjective Interval history: No acute events overnight - Constitutional Vitals: Temp Pulse Resp BP Pulse Ox 98.0 F 66 16 130/68 97 08/15/17 19:27 08/15/17 19:27 08/15/17 19:27 08/15/17 19:27 08/15/17 19:27 General appearance: Present: A&O X 3, morbidly obese, no acute distress, answers questions appropriately - Respiratory Respiratory exam: Present: respiratory distress, wheezes - Cardiovascular Cardiovascular exam: Present: RRR, +S1, +S2. Absent: diastolic murmur, gallop, rubs, systolic murmur Internal Medicine: Result - Labs CBC & Chem 7: 08/15/17 10:07 08/15/17 10:07 Labs: Short CBC 08/15/17 Range/Units 10:07 WBC 7.0 D (4.3-11.1) K/mcL Hgb 13.8 (11.5-15.4) g/dL Hct 49.2 H (35.3-44.9) % Plt Count 266 (140-400) K/mcL Neutrophils # 6.1 (1.6-8.9) K/mcL BMP 08/15/17 10:07 Sodium 139 Potassium 4.8 H Chloride 98 Carbon Dioxide 31 H BUN 26 H D Creatinine 1.30 H Glucose 185 H Calcium 9.2 - ABG Interpretation ABG results: ABG ABG pH 7.42 pH Units (7.32-7.45) 08/15/17 16:42 ABG pCO2 60 mmHg (35-45) H 08/15/17 16:42 ABG pO2 82 mmHg (85-104) L 08/15/17 16:42 ABG O2 Saturation 96 % (95-98) 08/15/17 16:42 - Impressions Impressions Brain MRI 08/15/17 12:32 IMPRESSION: 1. No acute intracranial abnormality. No acute infarct. 2. Mild global parenchymal volume loss with chronic microvascular ischemic change. 3. Chronic lacunar infarcts in the left [place]. 4. Chronic encephalomalacia involving the left cerebellum. Please note, intravenous contrast was not administered due to patient's trending lower GFR. D/ / Silver Cronin MD / Silver Cronin MD Interpreting Provider: Silver Cronin MD Consult Discharge Plan - Plan Referrals: NONE,PCP [Primary Care Provider] -
[2017-08-15] MEDS: Levofloxacin 500 MG/100 ML 500 MG/100 ML BAG IVPB SCH (20:44)
[2017-08-15] MEDS: Budesonide/Formoterol 80/4.5 MDI IH SCH (22:50)
[2017-08-16] MEDS: methylPREDNISolone 125 MG/2 ML VIAL IVP SCH ×4 (00:34→23:52)
[2017-08-16] MEDS: Ipratropium/Albuterol Neb 3 ML IH SCH ×4 (04:49→23:02)
[2017-08-16] MEDS: *HR* Enoxaparin 40 MG/0.4 ML SYRINGE SQ SCH (06:12)
[2017-08-16 06:23] LABS: INR 1.2; Prothrombin Time 13.5 Seconds (9.4-12.1)
[2017-08-16 06:36] LABS: Calcium 9.4 mg/dL (8.6-10.8); Potassium 4.5 mEq/L (3.5-4.5)
--- NOTE | 2017-08-16 08:14 | Pulmonology Progress Note ---
Date of Encounter: 08/16/17 Time of Encounter: 08:00 Assessment and Plan (1) Acute exacerbation of chronic obstructive airways disease Current Visit: Yes Status: Acute Patient is doing lot better will change to oral prednisone PO with steroid taper 40 mg x 3 days, 30 mg x 3days, 20 mg x 3 days, 10 mg x 3days . To finish seven days course of antibiotics . To continue bronchodilators and ICS/LABA . (2) Mass of right lung Current Visit: Yes Status: Chronic Patient doesnt have any mental capacity to understand the disease process or the procedure risks and benefit so we cannot get informed consent tried get hold of the daughter's to inform the disease process and get a consent for EBUS very difficult family situation not able to see the daughter or speak over the phone the whole team could not reach her. Will need to talk with family they will follow up for chemotherapy or radiotherapy if she is diagnosed of cancer.Will continue to reach her daughter . (3) Acute and chronic respiratory failure with hypoxia Current Visit: Yes Status: Acute patient has both acute and chronic hypoxia and hypercapnic respiratory failure will continue O2 supplementation , patient will benefit from nightly BIPAP will continue the current settings . Since patient is going to residential she wont need home qualification for BIPAP Subjective Principal diagnosis: COPD exacerbation with RUL mass Interval history: 67 year old female here for COPD exacerbation acute on chronic hypoxic and hypercapnic respiratory failure pulmonary was consulted for evaluation of RUL mass with mediastinal LN . Patient says she is feeling lot better , denies any much sputum production or hemoptysis. Objective PUL Vital signs: Last Vital Signs Temp 97.9 F 08/16/17 07:33 Pulse 69 08/16/17 07:33 Resp 17 08/16/17 07:33 BP 160/70 08/16/17 07:33 Pulse Ox 92 08/16/17 07:33 Auscultation: bilateral: diminished breath sounds Gastrointestinal: other (obese abdomen ) Results - Laboratory Findings CBC and BMP: 08/15/17 10:07 08/16/17 04:20 ABG ABG pH 7.42 pH Units (7.32-7.45) 08/15/17 16:42 ABG pCO2 60 mmHg (35-45) H 08/15/17 16:42 ABG pO2 82 mmHg (85-104) L 08/15/17 16:42 ABG O2 Saturation 96 % (95-98) 08/15/17 16:42 PT/INR, D-dimer PT 13.5 Seconds (9.4-12.1) H 08/16/17 04:20 Abnormal lab findings: Abnormal lab results RBC 6.30 M/mcL (3.82-4.97) H 08/15/17 10:07 Hct 49.2 % (35.3-44.9) H 08/15/17 10:07 MCV 78.1 fL (83.0-100.0) L 08/15/17 10:07 MCH 21.9 pg (28.0-33.3) L 08/15/17 10:07 MCHC 28.0 g/dL (31.6-35.5) L 08/15/17 10:07 RDW 23.1 % (11.5-14.5) H 08/15/17 10:07 MPV 9.1 fL (9.4-12.4) L 08/15/17 10:07 Polychromasia 1+ (Not Present) A 08/13/17 17:41 Hypochromasia Present (Not Present) A 08/15/17 10:07 Poikilocytosis 1+ (Not Present) A 08/13/17 17:41 Anisocytosis 1+ (Not Present) A 08/15/17 10:07 Microcytosis Present (Not Present) A 08/15/17 10:07 PT 13.5 Seconds (9.4-12.1) H 08/16/17 04:20 ABG pCO2 60 mmHg (35-45) H 08/15/17 16:42 ABG pO2 82 mmHg (85-104) L 08/15/17 16:42 ABG HCO3 39 mEq/L (21-27) H 08/15/17 16:42 ABG Total CO2 40 mEq/L (20-26) H 08/15/17 16:42 ABG Base Excess 11 mEq/L (-2 to 3) H 08/15/17 16:42 Chloride 94 mEq/L (98-109) L 08/16/17 04:20 Carbon Dioxide 35 mEq/L (19-29) H 08/16/17 04:20 BUN 35 mg/dL (7-20) H 08/16/17 04:20 Creatinine 1.24 mg/dL (0.57-1.11) H 08/16/17 04:20 Est GFR ( Amer) 52 (> 60) L 08/16/17 04:20 Est GFR (Non-Af Amer) 43 (> 60) L 08/16/17 04:20 BUN/Creatinine Ratio 28 (6-26) H 08/16/17 04:20 Glucose 154 mg/dL (70-99) H 08/16/17 04:20 POC Glucose 157 (58-89) H 08/15/17 20:08 Calculated Osmolality 301 (280-300) H 08/16/17 04:20 B-Natriuretic Peptide 173 pg/mL (0-100) H 08/13/17 17:41 Albumin 2.5 g/dL (3.5-5.0) L 08/13/17 17:41 Globulin 3.9 g/dL (2.4-3.5) H 08/13/17 17:41 Albumin/Globulin Ratio 0.6 (1.1-2.2) L 08/13/17 17:41 - Clinical Findings Intake & Output: Intake & Output 08/15/17 08/16/17 08/16/17 23:59 07:59 15:59 Intake Total 100 / 100 220 / 220 Output Total 500 / 500 950 / 950 Balance 100 / 100 -280 / -280 -950 / -950 Weight 108.59 kg Consult Discharge Plan - Plan Referrals: NONE,PCP [Primary Care Provider] -
[2017-08-16] MEDS: Furosemide 40 MG/4 ML VIAL IVP SCH (08:51)
[2017-08-16] MEDS: Insulin LISPRO 300 UNITS/3 ML VIAL SQ SCH ×4 (08:52→20:58)
[2017-08-16] MEDS: FLUoxetine 20 MG CAPSULE PO SCH (08:52)
[2017-08-16] MEDS: Insulin DETEMIR 100 UNIT/ML X5UNITS SQ SCH (10:37)
[2017-08-16] MEDS: Budesonide/Formoterol 80/4.5 MDI IH SCH ×2 (11:15→23:02)
[2017-08-16] MEDS ORDERED: 0.9 % Sodium Chloride 1,000 ML IVC ONE (12:11)
[2017-08-16] MEDS ORDERED: Furosemide 40 MG TABLET PO PRN (12:12)
[2017-08-16] MEDS: Ondansetron 4 MG/2 ML VIAL IVP PRN (13:19)
--- NOTE | 2017-08-16 14:30 | Physician Discharge Referral ---
ExtendedCare Referral Info Transfer To: SNF Provider in Charge: Goldie Tobias CNP Provider in Charge after Transfer: Other (SNF as edition) Institutional Level of Care: Skilled - Diagnosis (1) Acute and chronic respiratory failure with hypercapnia Status: Acute (2) Acute diastolic CHF (congestive heart failure) Status: Acute (3) Acute exacerbation of chronic obstructive airways disease Status: Acute (4) Acute kidney injury Status: Acute (5) HLD (hyperlipidemia) Status: Chronic (6) HTN (hypertension) Status: Chronic - Transfer Medications Home Medications: Albuterol Sulfate [Proair Respiclick] 2 puff IH Q4H PRN 09/29/15 [History] Fluticasone/Salmeterol [Advair 250-50 Diskus] 2 puff IH BID 09/29/15 [History] Lansoprazole [Prevacid] 30 mg PO DAILY 09/29/15 [History] Lisinopril [Zestril] 10 mg PO DAILY 09/29/15 [History] Tiotropium [Spiriva] 1 cap IH DAILY 09/29/15 [History] Albuterol Neb [Proventil Neb] 2.5 mg IH Q4H PRN 11/29/16 [History] FLUoxetine HCl [Fluoxetine HCl] 40 mg PO DAILY 01/19/17 [History] Atorvastatin [Lipitor] 40 mg PO HS #30 tablet 01/21/17 [Rx] Clopidogrel [Plavix] 75 mg PO DAILY #30 tablet 01/21/17 [Rx] Ipratropium/Albuterol Neb [Duoneb] 3 ml IH TID #60 inhsol 01/21/17 [Rx] Acetaminophen [Tylenol] 1,000 mg PO Q6HR PRN 02/08/17 [History] Furosemide [Lasix] 40 mg PO DAILY PRN #10 tab 07/08/17 [Rx] Gabapentin [Neurontin] 600 mg PO TID #21 07/08/17 [Rx] Insulin Glargine [Lantus] 25 unit SQ DAILY 30 Days mls 07/08/17 [Rx] clonazePAM [Klonopin] 1 mg PO BID PRN #14 tab 07/08/17 [Rx] Azithromycin [Azithromycin 6-Tab Pack] 250 mg PO PER PKG DI #6 tab 08/13/17 [Rx] Allergies/Adverse Reactions: 3 Allergy/AdvReac Type Severity Reaction Status Date / Time Iodinated Contrast- Oral and Allergy Unknown Difficulty Verified 08/14/17 05:21 IV Dye Breathing aspirin [ASA] Allergy Anaphylaxis Verified 03/16/17 10:42 Penicillins Allergy Anaphylaxis Verified 03/16/17 10:42 bupropion [From Wellbutrin] AdvReac Agitated Verified 03/16/17 10:42 Sulfa (Sulfonamide AdvReac Vomiting Verified 03/16/17 10:42 Antibiotics) - Respiratory Orders Oxygen / L per min (4) Smoking Cessation: Smoking cessation has been advised. For more information, call the [place] Tobacco Quit Line at 0-350-JFZQ-NOW. - Advance Directives Code Status: Full Code - Mobility Orders Ambulate - Rehabiliation Orders Rehab Potential: Fair Rehab Orders: Evaluation for Physical Therapy, Evaluation for Occupational Therapy - Diet Orders No Added Salt (JESSIE) CERTIFICATION: I certify that the transfer of the above named patient to an Extended Care Facility is necessary for the continuing treatment of the diagnosis listed. The above information is true and accurate reflection of patient's current condition. Confidential - Redisclosure prohibited without a patient's written consent.
--- NOTE | 2017-08-16 15:19 | Physician Discharge Referral ---
ExtendedCare Referral Info Transfer To: [facility] Provider in Charge: Goldie Tobias Provider in Charge after Transfer: Other (SNF physician) Institutional Level of Care: Intermediate - Diagnosis (1) Acute and chronic respiratory failure with hypercapnia Status: Acute (2) Acute diastolic CHF (congestive heart failure) Status: Acute (3) Acute exacerbation of chronic obstructive airways disease Status: Acute (4) Acute kidney injury Status: Acute (5) HLD (hyperlipidemia) Status: Chronic (6) HTN (hypertension) Status: Chronic - Transfer Medications Home Medications: Albuterol Sulfate [Proair Respiclick] 2 puff IH Q4H PRN 09/29/15 [History] Fluticasone/Salmeterol [Advair 250-50 Diskus] 2 puff IH BID 09/29/15 [History] Lansoprazole [Prevacid] 30 mg PO DAILY 09/29/15 [History] Lisinopril [Zestril] 10 mg PO DAILY 09/29/15 [History] Tiotropium [Spiriva] 1 cap IH DAILY 09/29/15 [History] Albuterol Neb [Proventil Neb] 2.5 mg IH Q4H PRN 11/29/16 [History] FLUoxetine HCl [Fluoxetine HCl] 40 mg PO DAILY 01/19/17 [History] Atorvastatin [Lipitor] 40 mg PO HS #30 tablet 01/21/17 [Rx] Clopidogrel [Plavix] 75 mg PO DAILY #30 tablet 01/21/17 [Rx] Ipratropium/Albuterol Neb [Duoneb] 3 ml IH TID #60 inhsol 01/21/17 [Rx] Acetaminophen [Tylenol] 1,000 mg PO Q6HR PRN 02/08/17 [History] Furosemide [Lasix] 40 mg PO DAILY PRN #10 tab 07/08/17 [Rx] Gabapentin [Neurontin] 600 mg PO TID #21 07/08/17 [Rx] Insulin Glargine [Lantus] 25 unit SQ DAILY 30 Days mls 07/08/17 [Rx] clonazePAM [Klonopin] 1 mg PO BID PRN #14 tab 07/08/17 [Rx] Azithromycin [Azithromycin 6-Tab Pack] 250 mg PO PER PKG DI #6 tab 08/13/17 [Rx] Allergies/Adverse Reactions: 3 Allergy/AdvReac Type Severity Reaction Status Date / Time Iodinated Contrast- Oral and Allergy Unknown Difficulty Verified 08/14/17 05:21 IV Dye Breathing aspirin [ASA] Allergy Anaphylaxis Verified 03/16/17 10:42 Penicillins Allergy Anaphylaxis Verified 03/16/17 10:42 bupropion [From Wellbutrin] AdvReac Agitated Verified 03/16/17 10:42 Sulfa (Sulfonamide AdvReac Vomiting Verified 03/16/17 10:42 Antibiotics) - Respiratory Orders Oxygen / L per min (4) Smoking Cessation: Smoking cessation has been advised. For more information, call the [place] Tobacco Quit Line at 3-782-KUUM-NOW. - Advance Directives Code Status: Full Code - Rehabiliation Orders Rehab Potential: Fair Rehab Orders: Evaluation for Physical Therapy, Evaluation for Occupational Therapy - Diet Orders No Added Salt (JESSIE), Cardiac CERTIFICATION: I certify that the transfer of the above named patient to an Extended Care Facility is necessary for the continuing treatment of the diagnosis listed. The above information is true and accurate reflection of patient's current condition. Confidential - Redisclosure prohibited without a patient's written consent.
--- NOTE | 2017-08-16 17:13 | Internal Med Progress Note ---
Date of Encounter: 08/16/17 Time of Encounter: 17:13 - Assessment and plan (1) Acute and chronic respiratory failure with hypercapnia Current Visit: Yes Status: Acute Assessment and plan: Kari Mclaughlin is a 57-year-old female with past medical history COPD, hypertension and diabetes who presented to [facility] on 08/13/2017. With complaints of soreness of breath. She was found to be in acute COPD exacerbation and CHF exacerbation. She was admitted for IV ATB and IV diuresis. 1. Acute COPD exacerbation: With increasing shortness of breath and wheezing on admission. Continue IV Levaquin, steroids and DuoNeb's. Discussed with Palm and will plan treat with 7 day total course of Levaquin and a 12 day steroid taper. Smoking cessation advised. Wean to home O2. 2. Acute on chronic diastolic dysfunction: 07/2017 with EF 60% and mild diastolic dysfunction. Appears compensated on 08/16 exam. Stop IV Lasix, resume home Lasix. 3. Lung nodule: chest CT with known right upper lung mass that has significantly increased in size. Evaluated by oncology who recommended PET scan which can be done outpatient. Evaluated by pulmonology who is planning outpatient Bronk. 4. Diabetes: per hx. blood sugars variable well on steroids but overall acceptable. Continue home long-acting insulin. Add SSI. Monitor blood sugar and titrate PRN 5. TYSON: Cr 1.24; normal on admission. Please secondary to IV diuresis. Stop IV Lasix, resume home dose. Monitor repeat CMP. 6. DVT prophylaxis: heparin (2) Acute diastolic CHF (congestive heart failure) Current Visit: Yes Status: Acute (3) Acute exacerbation of chronic obstructive airways disease Current Visit: Yes Status: Acute (4) Acute kidney injury Current Visit: No Status: Acute (5) HLD (hyperlipidemia) Current Visit: No Status: Chronic Qualifiers: Hyperlipidemia type: unspecified Qualified Code(s): E78.5 - Hyperlipidemia , unspecified (6) HTN (hypertension) Current Visit: No Status: Chronic Qualifiers: Hypertension type: essential hypertension Qualified Code(s): I10 - Essential (primary) hypertension - Subjective Interval history: Seen and examined at bedside, patient is new to me. Information obtained from chart review and patient report says she feels much better today like to go home. Still with some shortness of breath that is worse with exertion but overall significantly improved. Denies chest pain. She is aware of plan for outpatient PET scan and bronchoscopy. - Constitutional Vitals: Temp Pulse Resp BP Pulse Ox 98.0 F 77 17 137/72 92 08/16/17 15:35 08/16/17 15:35 08/16/17 16:03 08/16/17 15:35 08/16/17 16:03 General appearance: Present: mild distress, A&O X 3, morbidly obese, answers questions appropriately - Head Head exam: Present: atraumatic, normocephalic - Eye Eye exam: Present: PERRL, conjuntiva pink, sclera anicteric Pupils: Present: PERRL - Neck Neck exam general surgery: Present: supple, trachea midline. Absent: lymphadenopathy - Respiratory Respiratory exam: Present: wheezes. Absent: accessory muscle use, rales, rhonchi Additional comments: Appears mildly dyspneic with activity, O2 on 4 L. Lung sounds with scattered scant wheezing. - Cardiovascular Cardiovascular exam: Present: RRR, +S1, +S2. Absent: diastolic murmur, gallop, rubs, systolic murmur - GI/Abdominal GI/Abdominal exam: Present: normal bowel sounds, soft, no peritoneal signs. Absent: distended, tenderness - Extremities Exam Extremities exam: Present: warm, radial pulses palpable and symmetrical. Absent : calf tenderness, cyanotic, pedal edema - Neurological Exam Neurological exam: Present: CN II-XII intact, oriented X3, no focal deficits. Absent: pronater drift, facial droop, speech deficit - Skin Skin exam: Present: dry, intact Internal Medicine: Result - Labs CBC & Chem 7: 08/15/17 10:07 08/16/17 04:20 Labs: BMP 08/16/17 04:20 Sodium 140 Potassium 4.5 Chloride 94 L Carbon Dioxide 35 H BUN 35 H Creatinine 1.24 H Glucose 154 H Calcium 9.4 - ABG Interpretation ABG results: ABG ABG pH 7.42 pH Units (7.32-7.45) 08/15/17 16:42 ABG pCO2 60 mmHg (35-45) H 08/15/17 16:42 ABG pO2 82 mmHg (85-104) L 08/15/17 16:42 ABG O2 Saturation 96 % (95-98) 08/15/17 16:42 PT/INR, D-dimer PT 13.5 Seconds (9.4-12.1) H 08/16/17 04:20 Consult Discharge Plan - Plan Referrals: NONE,PCP [Primary Care Provider] -
[2017-08-16] MEDS: *HR* Heparin 5,000 UNIT/ML VIAL SQ SCH (21:02)
[2017-08-16] MEDS: Levofloxacin 500 MG/100 ML 500 MG/100 ML BAG IVPB SCH (21:02)
[2017-08-17] MEDS: Ipratropium/Albuterol Neb 3 ML IH SCH ×4 (04:11→22:17)
[2017-08-17] MEDS: *HR* Heparin 5,000 UNIT/ML VIAL SQ SCH ×3 (05:14→21:25)
[2017-08-17 05:25] LABS: Hematocrit 51.7 % (35.3-44.9); Hemoglobin 14.5 g/dL (11.5-15.4); Mean Corpuscular Hemoglobin 22.3 pg (28.0-33.3); Mean Corpuscular Volume 79.5 fL (83.0-100.0); Mean Platelet Volume 9.7 fL (9.4-12.4); Platelet Count 233 K/mcL (140-400); Red Cell Distribution Width 23.1 % (11.5-14.5)
[2017-08-17 05:34] LABS: Albumin 2.9 g/dL (3.5-5.0); Albumin/Globulin Ratio 0.8 (1.1-2.2); Bilirubin,Total 0.4 mg/dL (0.2-1.2); Calcium 8.8 mg/dL (8.6-10.8); Globulin 3.6 g/dL (2.4-3.5); Potassium 4.5 mEq/L (3.5-4.5); Total Protein 6.5 g/dL (6.0-8.3)
--- NOTE | 2017-08-17 07:34 | Pulmonology Progress Note ---
Date of Encounter: 08/17/17 Time of Encounter: 07:30 Assessment and Plan (1) Acute exacerbation of chronic obstructive airways disease Current Visit: Yes Status: Acute Patient is doing lot better will change to oral prednisone PO with steroid taper 40 mg x 3 days, 30 mg x 3days, 20 mg x 3 days, 10 mg x 3days . To finish seven days course of antibiotics . To continue bronchodilators and ICS/LABA . (2) Mass of right lung Current Visit: Yes Status: Chronic Patient doesnt have any mental capacity to understand the disease process or the procedure risks and benefit so we cannot get informed consent tried get hold of the daughter's to inform the disease process and get a consent for EBUS very difficult family situation not able to see the daughter or speak over the phone the whole team could not reach her. Will need to talk with family they will follow up for chemotherapy or radiotherapy if she is diagnosed of cancer.Will continue to reach her daughter . Discussed with will try to do EBUS with mediastinal LN biopsy , patient LN has some calcification and pre carinal LN showed necrotic LN if the LN biopsy is negative will do navigational bronchoscopy on tuesday. Will do EBUS tomorrow morning patient is added to the list for tomorrow morning. NPO after midnight. (3) Acute and chronic respiratory failure with hypoxia Current Visit: Yes Status: Acute patient has both acute and chronic hypoxia and hypercapnic respiratory failure will continue O2 supplementation , patient will benefit from nightly BIPAP will continue the current settings . Since patient is going to long term she wont need home qualification for BIPAP Encouraged to use BIPAP while she in the hospital. Subjective Principal diagnosis: COPD exacerbation with RUL mass Interval history: 67 year old female here for COPD exacerbation acute on chronic hypoxic and hypercapnic respiratory failure pulmonary was consulted for evaluation of RUL mass with mediastinal LN . Patient says she is feeling lot better , denies any much sputum production or hemoptysis. Patient today she is back to her baseline . Objective PUL Vital signs: Last Vital Signs Temp 97.9 F 08/17/17 03:11 Pulse 64 08/17/17 03:11 Resp 16 08/17/17 03:11 BP 147/83 08/17/17 03:11 Pulse Ox 91 08/17/17 03:11 Auscultation: bilateral: wheezes (mild scattered wheezes) Extremities: no edema Results - Laboratory Findings CBC and BMP: 08/17/17 04:39 08/17/17 04:39 ABG ABG pH 7.42 pH Units (7.32-7.45) 08/15/17 16:42 ABG pCO2 60 mmHg (35-45) H 08/15/17 16:42 ABG pO2 82 mmHg (85-104) L 08/15/17 16:42 ABG O2 Saturation 96 % (95-98) 08/15/17 16:42 PT/INR, D-dimer PT 13.5 Seconds (9.4-12.1) H 08/16/17 04:20 Abnormal lab findings: Abnormal lab results RBC 6.50 M/mcL (3.82-4.97) H 08/17/17 04:39 Hct 51.7 % (35.3-44.9) H 08/17/17 04:39 MCV 79.5 fL (83.0-100.0) L 08/17/17 04:39 MCH 22.3 pg (28.0-33.3) L 08/17/17 04:39 MCHC 28.0 g/dL (31.6-35.5) L 08/17/17 04:39 RDW 23.1 % (11.5-14.5) H 08/17/17 04:39 Polychromasia 1+ (Not Present) A 08/13/17 17:41 Hypochromasia Present (Not Present) A 08/15/17 10:07 Poikilocytosis 1+ (Not Present) A 08/13/17 17:41 Anisocytosis 1+ (Not Present) A 08/15/17 10:07 Microcytosis Present (Not Present) A 08/15/17 10:07 PT 13.5 Seconds (9.4-12.1) H 08/16/17 04:20 ABG pCO2 60 mmHg (35-45) H 08/15/17 16:42 ABG pO2 82 mmHg (85-104) L 08/15/17 16:42 ABG HCO3 39 mEq/L (21-27) H 08/15/17 16:42 ABG Total CO2 40 mEq/L (20-26) H 08/15/17 16:42 ABG Base Excess 11 mEq/L (-2 to 3) H 08/15/17 16:42 Chloride 94 mEq/L (98-109) L 08/17/17 04:39 Carbon Dioxide 38 mEq/L (19-29) H 08/17/17 04:39 BUN 38 mg/dL (7-20) H 08/17/17 04:39 Creatinine 1.20 mg/dL (0.57-1.11) H 08/17/17 04:39 Est GFR ( Amer) 54 (> 60) L 08/17/17 04:39 Est GFR (Non-Af Amer) 45 (> 60) L 08/17/17 04:39 BUN/Creatinine Ratio 32 (6-26) H 08/17/17 04:39 Glucose 176 mg/dL (70-99) H 08/17/17 04:39 POC Glucose 194 (58-89) H 08/16/17 20:30 Calculated Osmolality 303 (280-300) H 08/17/17 04:39 B-Natriuretic Peptide 173 pg/mL (0-100) H 08/13/17 17:41 Albumin 2.9 g/dL (3.5-5.0) L 08/17/17 04:39 Globulin 3.6 g/dL (2.4-3.5) H 08/17/17 04:39 Albumin/Globulin Ratio 0.8 (1.1-2.2) L 08/17/17 04:39 - Clinical Findings Intake & Output: Intake & Output 08/16/17 08/16/17 08/17/17 15:59 23:59 07:59 Intake Total 220 / 220 Output Total 2049 300 / 300 Balance -2049 / -2049 -80 / -80 Weight 108.908 kg Consult Discharge Plan - Plan Referrals: NONE,PCP [Primary Care Provider] -
[2017-08-17] MEDS: Acetaminophen 325 MG TABLET PO PRN ×2 (08:03→17:04)
[2017-08-17] MEDS: FLUoxetine 20 MG CAPSULE PO SCH (08:03)
[2017-08-17] MEDS: methylPREDNISolone 125 MG/2 ML VIAL IVP SCH (08:03)
[2017-08-17] MEDS: Insulin LISPRO 300 UNITS/3 ML VIAL SQ SCH ×4 (08:04→21:25)
[2017-08-17] MEDS: Insulin DETEMIR 100 UNIT/ML X5UNITS SQ SCH (09:03)
--- NOTE | 2017-08-17 09:13 | Internal Med Progress Note ---
Date of Encounter: 08/17/17 Time of Encounter: 09:07 - Assessment and plan (1) Acute and chronic respiratory failure with hypercapnia Current Visit: Yes Status: Acute Assessment and plan: Kari Mclaughlin is a 57-year-old female with past medical history COPD, hypertension and diabetes who presented to [facility] on 08/13/2017. With complaints of soreness of breath. She was found to be in acute COPD exacerbation and CHF exacerbation. She was admitted for IV ATB and IV diuresis. 1. Acute COPD exacerbation: With increasing shortness of breath and wheezing on admission. Continue IV Levaquin, steroids and DuoNeb's. Discussed with Pulm and will need 7 day total course of Levaquin and a 12 day steroid taper ( 40 mg x 3 days, 30 mg x 3days, 20 mg x 3 days, 10 mg x 3days). Smoking cessation advised. Wean to home O2. 2. Acute on chronic diastolic dysfunction: 07/2017 with EF 60% and mild diastolic dysfunction. Appears compensated on 08/16 exam. Stop IV Lasix, resume home Lasix. 3. Lung nodule: chest CT with known right upper lung mass that has significantly increased in size. Evaluated by oncology who recommended PET scan which can be done outpatient. Evaluated by pulmonology who initially planned bronch outpatient however given patients's obesity and COPD, she will need close monitoring after general anaesthesia. Planning on EBUS 08/18 4. Diabetes: per hx. blood sugars variable while on steroids but overall acceptable. Continue home long-acting insulin. Add SSI. Monitor blood sugar and titrate PRN 5. CKD: Cr 1.24 which appears to be at baseline. Intermittently monitor renal function. Avoid nephrotoxic agents as possible. 6. DVT prophylaxis: heparin (2) Acute diastolic CHF (congestive heart failure) Current Visit: Yes Status: Acute (3) Acute exacerbation of chronic obstructive airways disease Current Visit: Yes Status: Acute (4) Acute kidney injury Current Visit: No Status: Acute (5) HLD (hyperlipidemia) Current Visit: No Status: Chronic Qualifiers: Hyperlipidemia type: unspecified Qualified Code(s): E78.5 - Hyperlipidemia , unspecified (6) HTN (hypertension) Current Visit: No Status: Chronic Qualifiers: Hypertension type: essential hypertension Qualified Code(s): I10 - Essential (primary) hypertension - Subjective Interval history: Seen and examined at bedside; says she feels much better and looking forward to going home. Patient has hx dementia and unclear how much she understands/ retains. She is agreeable to stay for inpatient lung nodule bx. She has no complaints - Constitutional Vitals: Temp Pulse Resp BP Pulse Ox 97.4 F L 62 18 142/79 92 08/17/17 07:42 08/17/17 07:42 08/17/17 07:42 08/17/17 07:42 08/17/17 07:42 General appearance: Present: A&O X 2, morbidly obese, no acute distress, answers questions appropriately - Head Head exam: Present: atraumatic, normocephalic - Eye Eye exam: Present: PERRL, conjuntiva pink, sclera anicteric Pupils: Present: PERRL - Neck Neck exam general surgery: Present: supple, trachea midline. Absent: lymphadenopathy - Respiratory Respiratory exam: Present: CTAB. Absent: accessory muscle use, rales, rhonchi, wheezes - Cardiovascular Cardiovascular exam: Present: RRR, +S1, +S2. Absent: diastolic murmur, gallop, rubs, systolic murmur - GI/Abdominal GI/Abdominal exam: Present: normal bowel sounds, soft, no peritoneal signs. Absent: distended, tenderness - Extremities Exam Extremities exam: Present: warm, radial pulses palpable and symmetrical. Absent : calf tenderness, cyanotic, pedal edema - Neurological Exam Neurological exam: Present: CN II-XII intact, oriented X3, no focal deficits. Absent: pronater drift, facial droop, speech deficit - Skin Skin exam: Present: dry, intact Internal Medicine: Result - Labs CBC & Chem 7: 08/17/17 04:39 08/17/17 04:39 Labs: Short CBC 08/17/17 Range/Units 04:39 WBC 4.4 (4.3-11.1) K/mcL Hgb 14.5 (11.5-15.4) g/dL Hct 51.7 H (35.3-44.9) % Plt Count 233 (140-400) K/mcL BMP 08/17/17 04:39 Sodium 140 Potassium 4.5 Chloride 94 L Carbon Dioxide 38 H BUN 38 H Creatinine 1.20 H Glucose 176 H Calcium 8.8 Liver Function 08/17/17 Range/Units 04:39 Total Bilirubin 0.4 (0.2-1.2) mg/dL AST 11 (5-34) Units/L ALT 9 (0-55) Units/L Alkaline Phosphatase 81 (38-126) Units/L Albumin 2.9 L (3.5-5.0) g/dL - ABG Interpretation ABG results: ABG ABG pH 7.42 pH Units (7.32-7.45) 08/15/17 16:42 ABG pCO2 60 mmHg (35-45) H 08/15/17 16:42 ABG pO2 82 mmHg (85-104) L 08/15/17 16:42 ABG O2 Saturation 96 % (95-98) 08/15/17 16:42 PT/INR, D-dimer PT 13.5 Seconds (9.4-12.1) H 08/16/17 04:20 Consult Discharge Plan - Plan Referrals: NONE,PCP [Primary Care Provider] -
[2017-08-17] MEDS: Budesonide/Formoterol 80/4.5 MDI IH SCH ×2 (10:46→22:17)
[2017-08-17] MEDS: clonazePAM 1 MG TABLET PO PRN (15:11)
[2017-08-17] MEDS ORDERED: OLANZapine 5 MG TAB.RAPDIS PO ONE (21:00)
[2017-08-17] MEDS: Levofloxacin 500 MG/100 ML 500 MG/100 ML BAG IVPB SCH (21:22)
[2017-08-18] MEDS: Ipratropium/Albuterol Neb 3 ML IH SCH ×4 (03:50→22:35)
[2017-08-18] MEDS: *HR* Heparin 5,000 UNIT/ML VIAL SQ SCH ×3 (05:34→21:23)
[2017-08-18 05:37] LABS: Hematocrit 53.6 % (35.3-44.9); Hemoglobin 15.1 g/dL (11.5-15.4); Mean Corpuscular HGB Conc 28.2 g/dL (31.6-35.5); Mean Corpuscular Hemoglobin 22.3 pg (28.0-33.3); Mean Corpuscular Volume 79.1 fL (83.0-100.0); Mean Platelet Volume 8.9 fL (9.4-12.4); Platelet Count 190 K/mcL (140-400); Red Blood Count 6.78 M/mcL (3.82-4.97); Red Cell Distribution Width 23.2 % (11.5-14.5)
[2017-08-18 05:56] LABS: Albumin 2.9 g/dL (3.5-5.0); Albumin/Globulin Ratio 0.9 (1.1-2.2); Bilirubin,Total 0.5 mg/dL (0.2-1.2); Calcium 8.8 mg/dL (8.6-10.8); Globulin 3.4 g/dL (2.4-3.5); Potassium 3.7 mEq/L (3.5-4.5); Total Protein 6.3 g/dL (6.0-8.3)
[2017-08-18 06:00] LABS: Bilirubin,Urine Negative (Negative); Blood,Urine Moderate (Negative); Clarity,Urine Clear (Clear); Color,Urine Yellow (Yellow); Glucose,Urine (UA) Normal (Normal); Ketones,Urine Negative (Negative); Leukocyte Esterase,Urine Small (Negative); Nitrite,Urine Positive (Negative); Protein,Urine Negative (Neg-Trace); Specific Gravity,Urine 1.012 (1.010-1.025); Urobilinogen,Urine Normal (Normal)
[2017-08-18 06:01] LABS: Bacteria,Urine Few per hpf (None-Few); Hyaline Casts,Urine None Seen per lpf (None-Few); Squamous Epithelial Cell,Urine Many per lpf (None-Few)
[2017-08-18] MEDS: predniSONE 20 MG TABLET PO SCH (09:00)
[2017-08-18] MEDS: Insulin DETEMIR 100 UNIT/ML X5UNITS SQ SCH (09:03)
[2017-08-18] MEDS: Budesonide/Formoterol 80/4.5 MDI IH SCH ×2 (09:41→22:35)
[2017-08-18] MEDS: Insulin LISPRO 300 UNITS/3 ML VIAL SQ SCH ×4 (10:01→21:09)
[2017-08-18] MEDS: FLUoxetine 20 MG CAPSULE PO SCH (10:15)
--- NOTE | 2017-08-18 10:38 | Pulmonology Progress Note ---
Date of Encounter: 08/18/17 Time of Encounter: 08:00 Assessment and Plan (1) Acute exacerbation of chronic obstructive airways disease Current Visit: Yes Status: Acute Patient is doing lot better will change to oral prednisone PO with steroid taper 40 mg x 3 days, 30 mg x 3days, 20 mg x 3 days, 10 mg x 3days . To finish seven days course of antibiotics . To continue bronchodilators and ICS/LABA on discharge more likley by tomorrow to [facility]. (2) Mass of right lung Current Visit: Yes Status: Chronic Patient doesnt have any mental capacity to understand the disease process or the procedure risks and benefit so we cannot get informed consent tried get hold of the daughter's to inform the disease process and get a consent for EBUS very difficult family situation not able to see the daughter or speak over the phone the whole team could not reach her. Will need to talk with family they will follow up for chemotherapy or radiotherapy if she is diagnosed of cancer.Will continue to reach her daughter . EBUS was done today with TBNA done in the anterior carinal LN and Right hilar LN multiple passes for done , few atypical cells were seen in the anterior carinal LN will wait for the final results of the cell block and cytology. Will not schedule navigational bronchoscopy for now.Will follow up with the results in the clinic . (3) Acute and chronic respiratory failure with hypoxia Current Visit: Yes Status: Acute patient has both acute and chronic hypoxia and hypercapnic respiratory failure will continue O2 supplementation , patient will benefit from nightly BIPAP will continue the current settings . Since patient is going to [facility] she wont need home qualification for BIPAP Encouraged to use BIPAP while she in the hospital.To continue BIPAP 08/04 in the [facility]. Subjective Principal diagnosis: COPD exacerbation with RUL mass Interval history: 67 year old female here for COPD exacerbation acute on chronic hypoxic and hypercapnic respiratory failure pulmonary was consulted for evaluation of RUL mass with mediastinal LN . Patient says she is feeling lot better , denies any much sputum production or hemoptysis. Patient says she has good night sleep no complaints of shortness of breadth her cough and sputum production is her baseline. Patient is comfortable resting in bed. Objective PUL Vital signs: Last Vital Signs Temp 97.4 F L 08/18/17 07:48 Pulse 52 08/18/17 07:48 Resp 16 08/18/17 09:38 BP 118/61 08/18/17 09:38 Pulse Ox 96 08/18/17 09:38 Auscultation: bilateral: wheezes (scattered wheezes) Results - Laboratory Findings CBC and BMP: 08/18/17 05:21 08/18/17 05:21 ABG ABG pH 7.42 pH Units (7.32-7.45) 08/15/17 16:42 ABG pCO2 60 mmHg (35-45) H 08/15/17 16:42 ABG pO2 82 mmHg (85-104) L 08/15/17 16:42 ABG O2 Saturation 96 % (95-98) 08/15/17 16:42 PT/INR, D-dimer PT 13.5 Seconds (9.4-12.1) H 08/16/17 04:20 Abnormal lab findings: Abnormal lab results RBC 6.78 M/mcL (3.82-4.97) H 08/18/17 05:21 Hct 53.6 % (35.3-44.9) H 08/18/17 05:21 MCV 79.1 fL (83.0-100.0) L 08/18/17 05:21 MCH 22.3 pg (28.0-33.3) L 08/18/17 05:21 MCHC 28.2 g/dL (31.6-35.5) L 08/18/17 05:21 RDW 23.2 % (11.5-14.5) H 08/18/17 05:21 MPV 8.9 fL (9.4-12.4) L 08/18/17 05:21 Polychromasia 1+ (Not Present) A 08/13/17 17:41 Hypochromasia Present (Not Present) A 08/15/17 10:07 Poikilocytosis 1+ (Not Present) A 08/13/17 17:41 Anisocytosis 1+ (Not Present) A 08/15/17 10:07 Microcytosis Present (Not Present) A 08/15/17 10:07 PT 13.5 Seconds (9.4-12.1) H 08/16/17 04:20 ABG pCO2 60 mmHg (35-45) H 08/15/17 16:42 ABG pO2 82 mmHg (85-104) L 08/15/17 16:42 ABG HCO3 39 mEq/L (21-27) H 08/15/17 16:42 ABG Total CO2 40 mEq/L (20-26) H 08/15/17 16:42 ABG Base Excess 11 mEq/L (-2 to 3) H 08/15/17 16:42 Carbon Dioxide 36 mEq/L (19-29) H 08/18/17 05:21 BUN 32 mg/dL (7-20) H 08/18/17 05:21 Creatinine 1.14 mg/dL (0.57-1.11) H 08/18/17 05:21 Est GFR ( Amer) 58 (> 60) L 08/18/17 05:21 Est GFR (Non-Af Amer) 48 (> 60) L 08/18/17 05:21 BUN/Creatinine Ratio 28 (6-26) H 08/18/17 05:21 POC Glucose 158 (58-89) H 08/17/17 19:56 Calculated Osmolality 303 (280-300) H 08/18/17 05:21 B-Natriuretic Peptide 173 pg/mL (0-100) H 08/13/17 17:41 Albumin 2.9 g/dL (3.5-5.0) L 08/18/17 05:21 Albumin/Globulin Ratio 0.9 (1.1-2.2) L 08/18/17 05:21 Urine Blood Moderate (Negative) H 08/18/17 05:42 Urine Nitrite Positive (Negative) A 08/18/17 05:42 Ur Leukocyte Esterase Small (Negative) H 08/18/17 05:42 Urine Microscopic RBC 5-15 per hpf (0-3) H 08/18/17 05:42 Urine Microscopic WBC 5-15 per hpf (0-3) H 08/18/17 05:42 Ur Squamous Epith Cells Many per lpf (None-Few) H 08/18/17 05:42 Ur Culture Indicated? YES (NO) A 08/18/17 05:42 - Clinical Findings Intake & Output: Intake & Output 08/17/17 08/18/17 08/18/17 23:59 07:59 15:59 Intake Total 240 / 240 0 / 0 Output Total 0 / 0 650 / 650 Balance 240 / 240 -650 / -650 Consult Discharge Plan - Plan Referrals: NONE,PCP [Primary Care Provider] -
[2017-08-18] MEDS ORDERED: *HR* Midazolam HCl 2 MG/2 ML VIAL ONE (11:05)
[2017-08-18] MEDS ORDERED: *HR* FentaNYL (PF) 100 MCG/2 ML VIAL ONE (11:05)
--- NOTE | 2017-08-18 11:29 | Anesthesia Evaluation PreOp ---
Date of Encounter: 08/18/17 Time of Encounter: 11:30 - Past History Planned Operation: bronchoscopy Cardiac History: [place], CHF, HTN, Hyperlipidemia, Arrhythmia (Hx of acute diastolic dsyfunction (CHF). Has LVEF of 65% with mild to moderate pulmonary dysfunction.) Pulmonary History: Smoker (Mild confusion/early dementia), COPD (Admitted with acute exacerbation of COPD and pneumonia. She has a lung module of RU.) CLOTHES SHAKER History: CVA, Other Other Medical History: Renal (Stage III CKD), Diabetes Type II Alcohol Use: none Drug use: none Medications and Allergies Albuterol Sulfate [Proair Respiclick] 2 puff IH Q4H PRN 09/29/15 [History] Fluticasone/Salmeterol [Advair 250-50 Diskus] 2 puff IH BID 09/29/15 [History] Lansoprazole [Prevacid] 30 mg PO DAILY 09/29/15 [History] Lisinopril [Zestril] 10 mg PO DAILY 09/29/15 [History] Tiotropium [Spiriva] 1 cap IH DAILY 09/29/15 [History] Albuterol Neb [Proventil Neb] 2.5 mg IH Q4H PRN 11/29/16 [History] FLUoxetine HCl [Fluoxetine HCl] 40 mg PO DAILY 01/19/17 [History] Atorvastatin [Lipitor] 40 mg PO HS #30 tablet 01/21/17 [Rx] Clopidogrel [Plavix] 75 mg PO DAILY #30 tablet 01/21/17 [Rx] Ipratropium/Albuterol Neb [Duoneb] 3 ml IH TID #60 inhsol 01/21/17 [Rx] Acetaminophen [Tylenol] 1,000 mg PO Q6HR PRN 02/08/17 [History] Furosemide [Lasix] 40 mg PO DAILY PRN #10 tab 07/08/17 [Rx] Gabapentin [Neurontin] 600 mg PO TID #21 07/08/17 [Rx] Insulin Glargine [Lantus] 25 unit SQ DAILY 30 Days mls 07/08/17 [Rx] clonazePAM [Klonopin] 1 mg PO BID PRN #14 tab 07/08/17 [Rx] Azithromycin [Azithromycin 6-Tab Pack] 250 mg PO PER PKG DI #6 tab 08/13/17 [Rx] 3 Allergy/AdvReac Type Severity Reaction Status Date / Time Iodinated Contrast- Oral and Allergy Unknown Difficulty Verified 08/14/17 05:21 IV Dye Breathing aspirin [ASA] Allergy Anaphylaxis Verified 03/16/17 10:42 Penicillins Allergy Anaphylaxis Verified 03/16/17 10:42 bupropion [From Wellbutrin] AdvReac Agitated Verified 03/16/17 10:42 Sulfa (Sulfonamide AdvReac Vomiting Verified 03/16/17 10:42 Antibiotics) - Meds/Allergy Pre-op Review Medications Reviewed: Yes Allergies Reviewed: Yes Beta Blockers on Current Med List: No Anesthesia Results - Labs 08/18/17 05:21 08/18/17 05:21 - Imaging EKG: report reviewed, image reviewed (sinus rhythm with L.atrial enlargement) Anesthesia Exam Selected Entries 08/18/17 07:48 08/18/17 09:38 Temperature 97.4 F L Pulse Rate 52 Respiratory Rate 16 Blood Pressure 118/61 O2 Sat by Pulse Oximetry 96 Weight: 109 kg BMI 40 NPO (# of Hours): over 8 hours - HEENT Pupil (Motor): Pupils equal Mallampati: III Teeth: Edentulous Oral Opening: Greater than 3 - CLOTHES SHAKER LOC: Confused (Patient slightly confused but conversation with valving machine operator and patient I am convinced that patient is able to consent for procedure.) - Cardiac Rhythm: Regular Murmur: None - Pulmonary Breath Sounds: right Rales, right Rhonchi Anesthesia Assess/Plan ASA Score: 3 Modified Remi Scale for Level of Consciousness: Cooperative, oriented, and tranquil Anesthetic Plan: General Monitoring Plan: Standard Monitors Recovery Plan: PACU (Chart reviewed, will proceed.)
[2017-08-18] MEDS ORDERED: 0.9 % Sodium Chloride 1,000 ML IVC SCH (12:00)
--- NOTE | 2017-08-18 12:03 | Psychiatry Progress Note ---
Date of Encounter: 08/18/17 Time of Encounter: 11:55 Subjective Interval history: Attempted to see patient but she was not in her room. We will attempt to see patient again tomorrow. Please call 1A with any questions. Results - Vital Signs Vital Signs: Temp Pulse Resp BP Pulse Ox 97.4 F L 52 16 118/61 96 08/18/17 07:48 08/18/17 07:48 08/18/17 09:38 08/18/17 09:38 08/18/17 09:38 - Labs Labs: Laboratory Results - last 24 hr 08/17/17 08/17/17 08/17/17 07:41 10:54 16:18 WBC RBC Hgb Hct MCV MCH MCHC RDW Plt Count MPV Sodium Potassium Chloride Carbon Dioxide BUN Creatinine Est GFR ( Amer) Est GFR (Non-Af Amer) BUN/Creatinine Ratio Glucose POC Glucose 171 H 171 H 155 H Calculated Osmolality Calcium Total Bilirubin AST ALT Alkaline Phosphatase Serum Total Protein Albumin Globulin Albumin/Globulin Ratio Urine Color Urine Clarity Urine pH Ur Specific [place] Urine Protein Urine Glucose (UA) Urine Ketones Urine Blood Urine Nitrite Urine Bilirubin Urine Urobilinogen Ur Leukocyte Esterase Urine Microscopic RBC Urine Microscopic WBC Ur Squamous Epith Cells Urine Bacteria Hyaline Casts Ur Culture Indicated? 08/17/17 08/18/17 08/18/17 19:56 05:21 05:21 WBC 4.6 RBC 6.78 H Hgb 15.1 Hct 53.6 H MCV 79.1 L MCH 22.3 L MCHC 28.2 L RDW 23.2 H Plt Count 190 MPV 8.9 L Sodium 143 Potassium 3.7 Chloride 98 Carbon Dioxide 36 H BUN 32 H Creatinine 1.14 H Est GFR ( Amer) 58 L Est GFR (Non-Af Amer) 48 L BUN/Creatinine Ratio 28 H Glucose 94 POC Glucose 158 H Calculated Osmolality 303 H Calcium 8.8 Total Bilirubin 0.5 AST 12 ALT 9 Alkaline Phosphatase 74 Serum Total Protein 6.3 Albumin 2.9 L Globulin 3.4 Albumin/Globulin Ratio 0.9 L Urine Color Urine Clarity Urine pH Ur Specific [place] Urine Protein Urine Glucose (UA) Urine Ketones Urine Blood Urine Nitrite Urine Bilirubin Urine Urobilinogen Ur Leukocyte Esterase Urine Microscopic RBC Urine Microscopic WBC Ur Squamous Epith Cells Urine Bacteria Hyaline Casts Ur Culture Indicated? 08/18/17 05:42 WBC RBC Hgb Hct MCV MCH MCHC RDW Plt Count MPV Sodium Potassium Chloride Carbon Dioxide BUN Creatinine Est GFR ( Amer) Est GFR (Non-Af Amer) BUN/Creatinine Ratio Glucose POC Glucose Calculated Osmolality Calcium Total Bilirubin AST ALT Alkaline Phosphatase Serum Total Protein Albumin Globulin Albumin/Globulin Ratio Urine Color Yellow Urine Clarity Clear Urine pH 7.0 Ur Specific [place] 1.012 Urine Protein Negative Urine Glucose (UA) Normal Urine Ketones Negative Urine Blood Moderate H Urine Nitrite Positive A Urine Bilirubin Negative Urine Urobilinogen Normal Ur Leukocyte Esterase Small H Urine Microscopic RBC 5-15 H Urine Microscopic WBC 5-15 H Ur Squamous Epith Cells Many H Urine Bacteria Few Hyaline Casts None Seen Ur Culture Indicated? YES A - Impressions ITS Impressions Brain MRI 08/15/17 12:32 IMPRESSION: 1. No acute intracranial abnormality. No acute infarct. 2. Mild global parenchymal volume loss with chronic microvascular ischemic change. 3. Chronic lacunar infarcts in the left [place]. 4. Chronic encephalomalacia involving the left cerebellum. Please note, intravenous contrast was not administered due to patient's trending lower GFR. D/ / Silver Cronin MD / Silver Cronin MD Interpreting Provider: Silver Cronin MD Consult Discharge Plan - Plan Referrals: NONE,PCP [Primary Care Provider] -
[2017-08-18] MEDS ORDERED: *HR* EPINEPHrine 1 MG/10 ML SYRINGE INTRATRACH PRN (12:45)
[2017-08-18] MEDS ORDERED: *HR* EPINEPHrine 1 MG/10 ML SYRINGE ONE (13:14)
--- NOTE | 2017-08-18 13:37 | Anesthesia Evaluation Post Op ---
Date of Encounter: 08/18/17 Time of Encounter: 13:36 - Vital Signs Vital Signs: Vital Signs/O2 Sat, Most Current Temp Pulse Resp BP Pulse Ox 97.4 F L 78 16 106/50 92 08/18/17 13:30 08/18/17 13:30 08/18/17 13:30 08/18/17 13:30 08/18/17 13:30 - Lungs Lungs: Clear Ascult./Percussion - Airway Airway: Non-obstructed - Cardiovascular Regular Rate - Mental Status Mental Status: Alert & Oriented, Answers Appropriately - Pain Pain Scale: 0 Pain Scale used: Numeric (1 - 10) - Nausea Vomiting Nausea Vomiting: Not Present - Hydration Hydration: Ice chips, Has not voided - Discharge PostOp Status: Transfer Patient to floor
[2017-08-18] MEDS ORDERED: *HR* Propofol 200 MG/20 ML VIAL IVP ONE (16:19)
[2017-08-18] MEDS ORDERED: Lidocaine -MPF 4% 5 ML AMPUL INFILT ONE (16:19)
[2017-08-18] MEDS ORDERED: EPHEDrine 50 MG/ML VIAL IVP ONE (16:19)
[2017-08-18] MEDS ORDERED: Lidocaine -MPF 2% 5 ML VIAL INFILT ONE (16:19)
--- NOTE | 2017-08-18 18:04 | Internal Med Progress Note ---
Date of Encounter: 08/18/17 Time of Encounter: 18:04 - Assessment and plan (1) Acute and chronic respiratory failure with hypercapnia Current Visit: Yes Status: Acute Assessment and plan: Kari Mclaughlin is a 57-year-old female with past medical history COPD, hypertension and diabetes who presented to [facility] on 08/13/2017. With complaints of soreness of breath. She was found to be in acute COPD exacerbation and CHF exacerbation. She was admitted for IV ATB and IV diuresis. 1. Acute COPD exacerbation: With increasing shortness of breath and wheezing on admission. Continue IV Levaquin, steroids and DuoNeb's. Discussed with Pulm and will need 7 day total course of Levaquin and a 12 day steroid taper ( 40 mg x 3 days, 30 mg x 3days, 20 mg x 3 days, 10 mg x 3days). Smoking cessation advised. Wean to home O2. 2. Acute on chronic diastolic dysfunction: 07/2017 with EF 60% and mild diastolic dysfunction. Appears compensated on 08/16 exam. Stop IV Lasix, resume home Lasix. 3. Lung nodule: chest CT with known right upper lung mass that has significantly increased in size. Evaluated by oncology who recommended PET scan which can be done outpatient. Evaluated by pulmonology who initially planned bronch outpatient however given patients's obesity and COPD, she will need close monitoring after general anaesthesia. S/p biopsy on 08/18/2017. Can follow up outpatient once pathology finalized. 4. Diabetes: per hx. blood sugars variable while on steroids but overall acceptable. Continue home long-acting insulin. Add SSI. Monitor blood sugar and titrate PRN 5. CKD: Cr 1.24 which appears to be at baseline. Intermittently monitor renal function. Avoid nephrotoxic agents as possible. 6. DVT prophylaxis: heparin 7. Abnormal UA: UA concerning for UTI. Allergy to ceftriaxone. Start Cipro urine culture pending. 8. Dementia: Suspected. Daughter reports patient was previously evaluated and was thought to have early onset dementia at that time. Mentation has waxed and waned while inpatient; tearful to confuse too agitated. Suspect underlying dementia with superimposed delirium. UA is concerning for UTI, treating as noted above. Psychiatry consulted agitation recommendation. (2) Acute diastolic CHF (congestive heart failure) Current Visit: Yes Status: Acute (3) Acute exacerbation of chronic obstructive airways disease Current Visit: Yes Status: Acute (4) Acute kidney injury Current Visit: No Status: Acute (5) HLD (hyperlipidemia) Current Visit: No Status: Chronic Qualifiers: Hyperlipidemia type: unspecified Qualified Code(s): E78.5 - Hyperlipidemia , unspecified (6) HTN (hypertension) Current Visit: No Status: Chronic Qualifiers: Hypertension type: essential hypertension Qualified Code(s): I10 - Essential (primary) hypertension - Subjective Interval history: Seen and examined at bedside; she is much calmer and coherent today. Does not remember becoming agitated or upset yesterday. She has no complaints besides wanting to eat. She is agreeable to go to SNF at discharge. - Constitutional Vitals: Temp Pulse Resp BP Pulse Ox 97.4 F L 67 18 103/63 97 08/18/17 13:30 08/18/17 15:45 08/18/17 15:45 08/18/17 15:45 08/18/17 15:45 General appearance: Present: A&O X 2, morbidly obese, no acute distress, answers questions appropriately - Head Head exam: Present: atraumatic, normocephalic - Eye Eye exam: Present: PERRL, conjuntiva pink, sclera anicteric Pupils: Present: PERRL - Neck Neck exam general surgery: Present: supple, trachea midline. Absent: lymphadenopathy - Respiratory Respiratory exam: Present: CTAB. Absent: accessory muscle use, rales, rhonchi, wheezes - Cardiovascular Cardiovascular exam: Present: RRR, +S1, +S2. Absent: diastolic murmur, gallop, rubs, systolic murmur - GI/Abdominal GI/Abdominal exam: Present: normal bowel sounds, soft, no peritoneal signs. Absent: distended, tenderness - Extremities Exam Extremities exam: Present: warm, radial pulses palpable and symmetrical. Absent : calf tenderness, cyanotic, pedal edema - Neurological Exam Neurological exam: Present: CN II-XII intact, oriented X3, no focal deficits. Absent: pronater drift, facial droop, speech deficit - Skin Skin exam: Present: dry, intact Internal Medicine: Result - Labs CBC & Chem 7: 08/18/17 05:21 08/18/17 05:21 Labs: Short CBC 08/18/17 Range/Units 05:21 WBC 4.6 (4.3-11.1) K/mcL Hgb 15.1 (11.5-15.4) g/dL Hct 53.6 H (35.3-44.9) % Plt Count 190 (140-400) K/mcL BMP 08/18/17 05:21 Sodium 143 Potassium 3.7 Chloride 98 Carbon Dioxide 36 H BUN 32 H Creatinine 1.14 H Glucose 94 Calcium 8.8 Liver Function 08/18/17 Range/Units 05:21 Total Bilirubin 0.5 (0.2-1.2) mg/dL AST 12 (5-34) Units/L ALT 9 (0-55) Units/L Alkaline Phosphatase 74 (38-126) Units/L Albumin 2.9 L (3.5-5.0) g/dL Urine 08/18/17 Range/Units 05:42 Urine Color Yellow (Yellow) Urine Clarity Clear (Clear) Urine pH 7.0 (5.0-8.0) pH Units Ur Specific [place] 1.012 (1.010-1.025) Urine Protein Negative (Neg-Trace) mg/dL Urine Glucose (UA) Normal (Normal) mg/dL - ABG Interpretation ABG results: ABG ABG pH 7.42 pH Units (7.32-7.45) 08/15/17 16:42 ABG pCO2 60 mmHg (35-45) H 08/15/17 16:42 ABG pO2 82 mmHg (85-104) L 08/15/17 16:42 ABG O2 Saturation 96 % (95-98) 08/15/17 16:42 PT/INR, D-dimer PT 13.5 Seconds (9.4-12.1) H 08/16/17 04:20 Consult Discharge Plan - Plan Referrals: NONE,PCP [Primary Care Provider] -
[2017-08-18] MEDS: clonazePAM 1 MG TABLET PO PRN (21:07)
[2017-08-18] MEDS: Levofloxacin 500 MG/100 ML 500 MG/100 ML BAG IVPB SCH (21:08)
[2017-08-19] MEDS: Ipratropium/Albuterol Neb 3 ML IH SCH ×3 (04:33→15:58)
[2017-08-19 05:02] LABS: Hematocrit 51.8 % (35.3-44.9); Hemoglobin 14.2 g/dL (11.5-15.4); Mean Corpuscular HGB Conc 27.4 g/dL (31.6-35.5); Mean Corpuscular Hemoglobin 21.9 pg (28.0-33.3); Mean Corpuscular Volume 79.8 fL (83.0-100.0); Mean Platelet Volume 9.2 fL (9.4-12.4); Platelet Count 187 K/mcL (140-400); Red Blood Count 6.49 M/mcL (3.82-4.97); Red Cell Distribution Width 22.8 % (11.5-14.5)
[2017-08-19 05:13] LABS: Albumin 2.8 g/dL (3.5-5.0); Albumin/Globulin Ratio 0.9 (1.1-2.2); Bilirubin,Total 0.7 mg/dL (0.2-1.2); Calcium 8.5 mg/dL (8.6-10.8); Potassium 4.5 mEq/L (3.5-4.5); Total Protein 5.8 g/dL (6.0-8.3)
[2017-08-19] MEDS: *HR* Heparin 5,000 UNIT/ML VIAL SQ SCH (07:30)
[2017-08-19] MEDS: Insulin LISPRO 300 UNITS/3 ML VIAL SQ SCH ×2 (08:03→12:04)
--- NOTE | 2017-08-19 08:11 | Pulmonology Progress Note ---
Date of Encounter: 08/19/17 Time of Encounter: 07:30 Assessment and Plan (1) Acute exacerbation of chronic obstructive airways disease Current Visit: Yes Status: Acute Patient is doing lot better will change to oral prednisone PO with steroid taper 40 mg x 3 days, 30 mg x 3days, 20 mg x 3 days, 10 mg x 3days . To finish seven days course of antibiotics . To continue bronchodilators and ICS/LABA [facility]. (2) Mass of right lung Current Visit: Yes Status: Chronic Patient doesnt have any mental capacity to understand the disease process or the procedure risks and benefit so we cannot get informed consent tried get hold of the daughter's to inform the disease process and get a consent for EBUS very difficult family situation not able to see the daughter or speak over the phone the whole team could not reach her. Will need to talk with family they will follow up for chemotherapy or radiotherapy if she is diagnosed of cancer.Will continue to reach her daughter . EBUS was done today with TBNA done in the anterior carinal LN and Right hilar LN multiple passes for done , few atypical cells were seen in the anterior carinal LN will wait for the final results of the cell block and cytology. Most likely we might get a diagnosis with yesterday procedure , if the final report is positive for malignancy she will need to establish care with oncology . Will follow up with Final Biopsy results and will discuss with Daughter Lissette for further course of action called Lissette yesterday findings discussed and told her we are waiting for the biopsy results. (3) Acute and chronic respiratory failure with hypoxia Current Visit: Yes Status: Acute patient has both acute and chronic hypoxia and hypercapnic respiratory failure will continue O2 supplementation , patient will benefit from nightly BIPAP will continue the current settings . Since patient is going to [facility] she wont need home qualification for BIPAP Encouraged to use BIPAP while she in the hospital.To continue BIPAP / in the half-way. Patient reluctant to use BIPAP to continue O2 supplementation . Patient to follow up with pulmonary as outpatient in 2-3 months for her COPD . Subjective Principal diagnosis: COPD exacerbation with RUL mass Interval history: 67 year old female here for COPD exacerbation acute on chronic hypoxic and hypercapnic respiratory failure pulmonary was consulted for evaluation of RUL mass with mediastinal LN . Patient says she is feeling lot better , denies any much sputum production or hemoptysis. Patient says she has good night sleep no complaints of shortness of breadth her cough and sputum production is her baseline. Patient is comfortable resting in bed. Patient has dementia and delirium evaluated by psychiatrist Objective PUL Vital signs: Last Vital Signs Temp 97.8 F 08/19/17 04:48 Pulse 64 08/19/17 04:48 Resp 16 08/19/17 04:48 BP 130/75 08/19/17 04:48 Pulse Ox 97 08/19/17 04:48 Auscultation: bilateral: diminished breath sounds non-focal exam, other (Patient is A X 2 that his baseline ) Results - Laboratory Findings CBC and BMP: 08/19/17 04:32 08/19/17 04:32 ABG ABG pH 7.42 pH Units (7.32-7.45) 08/15/17 16:42 ABG pCO2 60 mmHg (35-45) H 08/15/17 16:42 ABG pO2 82 mmHg (85-104) L 08/15/17 16:42 ABG O2 Saturation 96 % (95-98) 08/15/17 16:42 PT/INR, D-dimer PT 13.5 Seconds (9.4-12.1) H 08/16/17 04:20 Abnormal lab findings: Abnormal lab results RBC 6.49 M/mcL (3.82-4.97) H 08/19/17 04:32 Hct 51.8 % (35.3-44.9) H 08/19/17 04:32 MCV 79.8 fL (83.0-100.0) L 08/19/17 04:32 MCH 21.9 pg (28.0-33.3) L 08/19/17 04:32 MCHC 27.4 g/dL (31.6-35.5) L 08/19/17 04:32 RDW 22.8 % (11.5-14.5) H 08/19/17 04:32 MPV 9.2 fL (9.4-12.4) L 08/19/17 04:32 Polychromasia 1+ (Not Present) A 08/13/17 17:41 Hypochromasia Present (Not Present) A 08/15/17 10:07 Poikilocytosis 1+ (Not Present) A 08/13/17 17:41 Anisocytosis 1+ (Not Present) A 08/15/17 10:07 Microcytosis Present (Not Present) A 08/15/17 10:07 PT 13.5 Seconds (9.4-12.1) H 08/16/17 04:20 ABG pCO2 60 mmHg (35-45) H 08/15/17 16:42 ABG pO2 82 mmHg (85-104) L 08/15/17 16:42 ABG HCO3 39 mEq/L (21-27) H 08/15/17 16:42 ABG Total CO2 40 mEq/L (20-26) H 08/15/17 16:42 ABG Base Excess 11 mEq/L (-2 to 3) H 08/15/17 16:42 Carbon Dioxide 35 mEq/L (19-29) H 08/19/17 04:32 BUN 31 mg/dL (7-20) H 08/19/17 04:32 Creatinine 1.12 mg/dL (0.57-1.11) H 08/19/17 04:32 Est GFR ( Amer) 59 (> 60) L 08/19/17 04:32 Est GFR (Non-Af Amer) 49 (> 60) L 08/19/17 04:32 BUN/Creatinine Ratio 28 (6-26) H 08/19/17 04:32 Glucose 100 mg/dL (70-99) H 08/19/17 04:32 POC Glucose 215 (58-89) H 08/18/17 21:01 Calculated Osmolality 301 (280-300) H 08/19/17 04:32 Calcium 8.5 mg/dL (8.6-10.8) L 08/19/17 04:32 B-Natriuretic Peptide 173 pg/mL (0-100) H 08/13/17 17:41 Serum Total Protein 5.8 g/dL (6.0-8.3) L 08/19/17 04:32 Albumin 2.8 g/dL (3.5-5.0) L 08/19/17 04:32 Albumin/Globulin Ratio 0.9 (1.1-2.2) L 08/19/17 04:32 Urine Blood Moderate (Negative) H 08/18/17 05:42 Urine Nitrite Positive (Negative) A 08/18/17 05:42 Ur Leukocyte Esterase Small (Negative) H 08/18/17 05:42 Urine Microscopic RBC 5-15 per hpf (0-3) H 08/18/17 05:42 Urine Microscopic WBC 5-15 per hpf (0-3) H 08/18/17 05:42 Ur Squamous Epith Cells Many per lpf (None-Few) H 08/18/17 05:42 Ur Culture Indicated? YES (NO) A 08/18/17 05:42 - Microbiology Findings Microbiology Findings: Microbiology, Last 48 Hours 08/18/17 05:42 Urine Culture - Preliminary Urine,Clean Catch Gram Negative Naresh - Clinical Findings Intake & Output: Intake & Output 08/18/17 08/19/17 08/19/17 23:59 07:59 15:59 Intake Total 360 / 360 Output Total 700 / 700 700 / 700 Balance -340 / -340 -700 / -700 Weight 105.8 kg Consult Discharge Plan - Plan Referrals: NONE,PCP [Primary Care Provider] -
[2017-08-19] MEDS: predniSONE 20 MG TABLET PO SCH (08:14)
[2017-08-19] MEDS: FLUoxetine 20 MG CAPSULE PO SCH (08:15)
[2017-08-19] MEDS: Insulin DETEMIR 100 UNIT/ML X5UNITS SQ SCH (10:14)
[2017-08-19] MEDS: Budesonide/Formoterol 80/4.5 MDI IH SCH (10:48)
--- NOTE | 2017-08-19 11:18 | Consult Note ---
Date of Encounter: 08/19/17 Time of Encounter: 10:50 Assessment & Recommendation (1) Altered mental status Current visit: No Status: Acute Assessment & Recommendation: Patient appears to be having some increased confusion and agitation related to her medical issues and potentially her environment change. She was calm and cooperative with this provider but does occasionally become agitated. Per staff has been given medications before for agitation here. It appears patient is taking clonazepam 1 mg by mouth twice a day and this was an outpatient medication. Given the diagnoses of dementia and delirium and may be beneficial to taper this medication slowly because it can increase confusion. (2) Dementia Current visit: Yes Status: Acute Assessment & Recommendation: Patient has a history of dementia currently exacerbated by her medical conditions and superimposed delirium. Consider using low-dose of Seroquel 25-50 mg by mouth if needed for agitation. Also could try Zyprexa dissolving tablet 2.5-5 mg when necessary severe agitation. Would recommend going over risks, benefits, alternatives of these medications including black box warning and the elderly with patient's medical power of traffic law attorney. Qualifiers: Dementia type: unspecified type Dementia behavioral disturbance: with behavioral disturbance Qualified Code(s): F03.91 - Unspecified dementia with behavioral disturbance History of Present Illness Patient: new to practice Requesting Physician: Bisi Palacios CNP Reason for consult: Dementia History of present illness: Ms. Mclaughlin is a 67 year old female with a history of dementia who presented to the hospital with COPD exacerbation and superimposed delirium. She was admitted to the medical floor and treated for her underlying medical conditions. Patient does have a previously documented history of dementia. On interview she is confused. She is aware that she is in the hospital and is interested in going home. She does occasionally become agitated especially when told she is not going home. Patient states that she knows where she is but she is not sure why she is being treated in the hospital to begin with. She does report she has family that help her. She thinks the special education teachers is Redd Mata. Patient is not aware of the season or the date. She is calm and cooperative during my interview. CC: Bisi Palacios CNP Past Med Surg Social Fam HX - Past Medical History Medical history: arthritis, cancer, CHF, COPD, coronary artery disease, CVA, DVT , diabetes, hyperlipidemia, hypertension, malignancy, renal disease - Past Psychiatric History Psychiatric history: Reports: other (dementia) Family psychiatric history: Unknown Family History of Suicide: Unknown - Past Surgical History Surgical History: , hysterectomy, other - Social History Smoking Status: Current every day smoker Smokeless Tobacco Status: No Alcohol use: none Drug use: none - Family History Mother Adopted: Yes Living Status: Still Living Father Adopted: Yes Family Member Ethnicity: Non- Living Status: Hx Family Cardiac Disorders: Yes Hx Family Respiratory Disorders: No Hx Family Cancer: No Hx Family GI Disorders: No Hx Family Endocrine Disorder: No Hx Family Neuromuscular Disorders: No Hx Family Neurologic Disorders: No Hx Family HEENT Disorders: No Hx Family Autoimmune Disorders: No Medications & Allergies Albuterol Sulfate [Proair Respiclick] 2 puff IH Q4H PRN 09/29/15 [History] Fluticasone/Salmeterol [Advair 250-50 Diskus] 2 puff IH BID 09/29/15 [History] Lansoprazole [Prevacid] 30 mg PO DAILY 09/29/15 [History] Lisinopril [Zestril] 10 mg PO DAILY 09/29/15 [History] Tiotropium [Spiriva] 1 cap IH DAILY 09/29/15 [History] Albuterol Neb [Proventil Neb] 2.5 mg IH Q4H PRN 11/29/16 [History] FLUoxetine HCl [Fluoxetine HCl] 40 mg PO DAILY 01/19/17 [History] Atorvastatin [Lipitor] 40 mg PO HS #30 tablet 01/21/17 [Rx] Clopidogrel [Plavix] 75 mg PO DAILY #30 tablet 01/21/17 [Rx] Ipratropium/Albuterol Neb [Duoneb] 3 ml IH TID #60 inhsol 01/21/17 [Rx] Acetaminophen [Tylenol] 1,000 mg PO Q6HR PRN 02/08/17 [History] Furosemide [Lasix] 40 mg PO DAILY PRN #10 tab 07/08/17 [Rx] Gabapentin [Neurontin] 600 mg PO TID #21 07/08/17 [Rx] Insulin Glargine [Lantus] 25 unit SQ DAILY 30 Days mls 07/08/17 [Rx] clonazePAM [Klonopin] 1 mg PO BID PRN #14 tab 07/08/17 [Rx] Azithromycin [Azithromycin 6-Tab Pack] 250 mg PO PER PKG DI #6 tab 08/13/17 [Rx] 3 Allergy/AdvReac Type Severity Reaction Status Date / Time Iodinated Contrast- Oral and Allergy Unknown Difficulty Verified 08/14/17 05:21 IV Dye Breathing aspirin [ASA] Allergy Anaphylaxis Verified 03/16/17 10:42 Penicillins Allergy Anaphylaxis Verified 03/16/17 10:42 bupropion [From Wellbutrin] AdvReac Agitated Verified 03/16/17 10:42 Sulfa (Sulfonamide AdvReac Vomiting Verified 03/16/17 10:42 Antibiotics) Review of Systems ROS limited: due to patient condition Psychiatric: Reports: anxiety, irritability. Denies: depression, abnormal sleep pattern, suicidal ideation, change in appetite, auditory hallucinations, visual hallucinations, anhedonia, change in libido, mood swings Mental Status Exam Patient orientation: Yes Person, No Time, Yes Place, No Circumstance Level of alertness: Alert Patient appearance: Appropriate Behavior: calm, cooperative Psychomotor activity: Normal Eye contact: Minimal Contact Mood description: Euthymic/stable Affect description: constricted Speech pattern: Normal rate, Normal rhythm, Normal tone Speech volume: Normal Thought process: [place] Thought content: No Suicidal ideation, No Homicidal ideation Perceptual disturbances: No Auditory hallucinations, No Visual hallucinations Attention span: Capable of Focused Attention Memory description: Immediate Intact, Recent Impaired, Remote Impaired Patient reliability: Not Reliable Historian Intelligence estimate: Average Judgment: Poor Insight: Minimal Results - Vital Signs Vital signs: Temp Pulse Resp BP Pulse Ox 97.8 F 64 16 130/75 97 08/19/17 04:48 08/19/17 04:48 08/19/17 04:48 08/19/17 04:48 08/19/17 04:48 - Labs Labs: Laboratory Last Values WBC 5.0 K/mcL (4.3-11.1) 08/19/17 04:32 RBC 6.49 M/mcL (3.82-4.97) H 08/19/17 04:32 Hgb 14.2 g/dL (11.5-15.4) 08/19/17 04:32 Hct 51.8 % (35.3-44.9) H 08/19/17 04:32 MCV 79.8 fL (83.0-100.0) L 08/19/17 04:32 MCH 21.9 pg (28.0-33.3) L 08/19/17 04:32 MCHC 27.4 g/dL (31.6-35.5) L 08/19/17 04:32 RDW 22.8 % (11.5-14.5) H 08/19/17 04:32 Plt Count 187 K/mcL (140-400) 08/19/17 04:32 MPV 9.2 fL (9.4-12.4) L 08/19/17 04:32 Immature Gran % 0.7 % (0-4) 08/15/17 10:07 Seg Neutrophils % 87.5 % 08/15/17 10:07 Lymphocytes % 8.0 % 08/15/17 10:07 Monocytes % 3.7 % 08/15/17 10:07 Eosinophils % 0.0 % 08/15/17 10:07 Basophils % 0.1 % 08/15/17 10:07 Neutrophils # 6.1 K/mcL (1.6-8.9) 08/15/17 10:07 Lymphocytes # 0.6 K/mcL (0.6-4.6) 08/15/17 10:07 Monocytes # 0.3 K/mcL (0.0-1.3) 08/15/17 10:07 Eosinophils # 0.0 K/mcL (0.0-0.6) 08/15/17 10:07 Basophils # 0.0 K/mcL (0.0-0.2) 08/15/17 10:07 Platelet Estimate Normal (Normal) 08/15/17 10:07 Polychromasia 1+ (Not Present) A 08/13/17 17:41 Hypochromasia Present (Not Present) A 08/15/17 10:07 Poikilocytosis 1+ (Not Present) A 08/13/17 17:41 Anisocytosis 1+ (Not Present) A 08/15/17 10:07 Microcytosis Present (Not Present) A 08/15/17 10:07 PT 13.5 Seconds (9.4-12.1) H 08/16/17 04:20 INR 1.2 08/16/17 04:20 ABG pH 7.42 pH Units (7.32-7.45) 08/15/17 16:42 ABG pCO2 60 mmHg (35-45) H 08/15/17 16:42 ABG pO2 82 mmHg (85-104) L 08/15/17 16:42 ABG HCO3 39 mEq/L (21-27) H 08/15/17 16:42 ABG Total CO2 40 mEq/L (20-26) H 08/15/17 16:42 ABG O2 Saturation 96 % (95-98) 08/15/17 16:42 ABG Base Excess 11 mEq/L (-2 to 3) H 08/15/17 16:42 Sodium 142 mEq/L (136-145) 08/19/17 04:32 Potassium 4.5 mEq/L (3.5-4.5) 08/19/17 04:32 Chloride 99 mEq/L (98-109) 08/19/17 04:32 Carbon Dioxide 35 mEq/L (19-29) H 08/19/17 04:32 BUN 31 mg/dL (7-20) H 08/19/17 04:32 Creatinine 1.12 mg/dL (0.57-1.11) H 08/19/17 04:32 Est GFR ( Amer) 59 (> 60) L 08/19/17 04:32 Est GFR (Non-Af Amer) 49 (> 60) L 08/19/17 04:32 BUN/Creatinine Ratio 28 (6-26) H 08/19/17 04:32 Glucose 100 mg/dL (70-99) H 08/19/17 04:32 POC Glucose 215 (58-89) H 08/18/17 21:01 Est Mean Plasma Glucose 111 mg/dl 08/13/17 Unknown Hemoglobin A1c 5.5 % (-5.6) 08/13/17 Unknown Calculated Osmolality 301 (280-300) H 08/19/17 04:32 Lactic Acid 0.8 mmol/L (0.5-2.2) 08/13/17 17:41 Calcium 8.5 mg/dL (8.6-10.8) L 08/19/17 04:32 Total Bilirubin 0.7 mg/dL (0.2-1.2) 08/19/17 04:32 Direct Bilirubin 0.2 mg/dL (0.0-0.5) 08/13/17 17:41 Indirect Bilirubin 0.0 mg/dL (0.0-1.2) 08/13/17 17:41 AST 11 Units/L (5-34) 08/19/17 04:32 ALT 7 Units/L (0-55) 08/19/17 04:32 Alkaline Phosphatase 67 Units/L (38-126) 08/19/17 04:32 Troponin I 0.01 ng/mL (0-0.03) 08/13/17 17:41 B-Natriuretic Peptide 173 pg/mL (0-100) H 08/13/17 17:41 Serum Total Protein 5.8 g/dL (6.0-8.3) L 08/19/17 04:32 Albumin 2.8 g/dL (3.5-5.0) L 08/19/17 04:32 Globulin 3.0 g/dL (2.4-3.5) 08/19/17 04:32 Albumin/Globulin Ratio 0.9 (1.1-2.2) L 08/19/17 04:32 Urine Color Yellow (Yellow) 08/18/17 05:42 Urine Clarity Clear (Clear) 08/18/17 05:42 Urine pH 7.0 pH Units (5.0-8.0) 08/18/17 05:42 Ur Specific [place] 1.012 (1.010-1.025) 08/18/17 05:42 Urine Protein Negative mg/dL (Neg-Trace) 08/18/17 05:42 Urine Glucose (UA) Normal mg/dL (Normal) 08/18/17 05:42 Urine Ketones Negative mg/dL (Negative) 08/18/17 05:42 Urine Blood Moderate (Negative) H 08/18/17 05:42 Urine Nitrite Positive (Negative) A 08/18/17 05:42 Urine Bilirubin Negative (Negative) 08/18/17 05:42 Urine Urobilinogen Normal mg/dL (Normal) 08/18/17 05:42 Ur Leukocyte Esterase Small (Negative) H 08/18/17 05:42 Urine Microscopic RBC 5-15 per hpf (0-3) H 08/18/17 05:42 Urine Microscopic WBC 5-15 per hpf (0-3) H 08/18/17 05:42 Ur Squamous Epith Cells Many per lpf (None-Few) H 08/18/17 05:42 Urine Bacteria Few per hpf (None-Few) 08/18/17 05:42 Hyaline Casts None Seen per lpf (None-Few) 08/18/17 05:42 Ur Culture Indicated? YES (NO) A 08/18/17 05:42 Consult Discharge Plan - Plan Referrals: NONE,PCP [Primary Care Provider] -
[2017-08-19 11:48] VITALS: BP 114/62
[2017-08-19] MEDS: clonazePAM 1 MG TABLET PO PRN (13:20)
--- NOTE | 2017-08-19 14:31 | Discharge Summary ---
Date of Encounter: 08/19/17 Time of Encounter: 14:21 - Discharge Diagnosis (1) Acute and chronic respiratory failure with hypercapnia Priority: Primary Status: Acute Comments: Kari Mclaughlin is a 57-year-old female with past medical history COPD, hypertension and diabetes who presented to [facility] on 08/13/2017. With complaints of soreness of breath. She was found to be in acute COPD exacerbation and CHF exacerbation. She was admitted for IV ATB and IV diuresis. Hospital course prolonged due to new pulmonary nodule which was biopsied. She was discharged on 08/19/2017 date SNF in stable condition with outpatient follow-up 1. Acute COPD exacerbation: With increasing shortness of breath and wheezing on admission. Symptoms improved with IV Levaquin, steroids and DuoNeb's. She completed a 7 day total course of Levaquin. We will discharge on 12 day steroid taper (40 mg x 3 days, 30 mg x 3days, 20 mg x 3 days, 10 mg x 3days) per pulmonology recommendation. Smoking cessation advised. Cont O2 at home dose. 2. Acute on chronic diastolic dysfunction: 07/2017 with EF 60% and mild diastolic dysfunction. Appears compensated on 08/16 exam. Initially diuresed with IV Lasix. Resume home Lasix. 3. Lung nodule: chest CT with known right upper lung mass that has significantly increased in size. Evaluated by oncology who recommended PET scan which can be done outpatient. Evaluated by pulmonology who initially planned bronch outpatient however given patients's obesity and COPD, she will need close monitoring after general anaesthesia. S/p biopsy on 08/18/2017. If final report is positive for malignancy patient will need to establish care with oncology. Pulmonology will follow-up with final biopsy results and discuss with patient and daughter. 4. Diabetes: per hx. blood sugars variable while on steroids but overall acceptable. Continue home long-acting insulin and SSI. What sugar to be monitored at SNF. 5. CKD: Cr 1.24 which appears to be at baseline. Intermittently monitor renal function. Avoid nephrotoxic agents as possible. Cr 1.12 discharge. Recommend repeat CMP at SNF 6. Abnormal UA: UA concerning for UTI. Allergy to penicillin and sulfa. Macrobid started 08/18/2017. Will follow up with urine culture and change ATB if needed. Discussed with psychologist social and SNF is aware that urine culture is pending they will be able to provide IV ATB if that is what is needed. 7. Dementia: Suspected. Daughter reports patient was previously evaluated and was thought to have early onset dementia at that time. Mentation has waxed and waned while inpatient; tearful to confuse too agitated. Suspect underlying dementia with superimposed delirium. UA is concerning for UTI, treating as noted above. Evaluated by psychiatry who recommended tapering home clonazepam as it can increase confusion. Psychiatry also recommended considering Seroquel 25-50 mg PRN agitation. And Zyprexa dissolving tablet 2.5-5 mg PRN severe agitation. Will defer to SNF physician as she will be monitored there. (2) Acute diastolic CHF (congestive heart failure) Priority: Primary Status: Acute (3) Acute exacerbation of chronic obstructive airways disease Priority: Primary Status: Acute (4) Acute kidney injury Priority: Primary Status: Acute (5) HLD (hyperlipidemia) Priority: Primary Status: Chronic Qualifiers: Qualified Code(s): E78.5 - Hyperlipidemia, unspecified (6) HTN (hypertension) Priority: Primary Status: Chronic Qualifiers: Qualified Code(s): I10 - Essential (primary) hypertension - Discharge Medications Prescriptions: predniSONE [Prednisone] 10 mg PO DAILY #40 tab.ds.pk Home Medications: Albuterol Sulfate [Proair Respiclick] 2 puff IH Q4H PRN 09/29/15 [History] Fluticasone/Salmeterol [Advair 250-50 Diskus] 2 puff IH BID 09/29/15 [History] Lansoprazole [Prevacid] 30 mg PO DAILY 09/29/15 [History] Lisinopril [Zestril] 10 mg PO DAILY 09/29/15 [History] Tiotropium [Spiriva] 1 cap IH DAILY 09/29/15 [History] Albuterol Neb [Proventil Neb] 2.5 mg IH Q4H PRN 11/29/16 [History] FLUoxetine HCl [Fluoxetine HCl] 40 mg PO DAILY 01/19/17 [History] Atorvastatin [Lipitor] 40 mg PO HS #30 tablet 01/21/17 [Rx] Clopidogrel [Plavix] 75 mg PO DAILY #30 tablet 01/21/17 [Rx] Ipratropium/Albuterol Neb [Duoneb] 3 ml IH TID #60 inhsol 01/21/17 [Rx] Acetaminophen [Tylenol] 1,000 mg PO Q6HR PRN 02/08/17 [History] Furosemide [Lasix] 40 mg PO DAILY PRN #10 tab 07/08/17 [Rx] Gabapentin [Neurontin] 600 mg PO TID #21 07/08/17 [Rx] Insulin Glargine [Lantus] 25 unit SQ DAILY 30 Days mls 07/08/17 [Rx] clonazePAM [Klonopin] 1 mg PO BID PRN #14 tab 07/08/17 [Rx] Insulin LISPRO [HumaLOG] 0 units SQ HS vial 08/19/17 [Rx] Insulin LISPRO [HumaLOG] 0 units SQ TIDAC vial 08/19/17 [Rx] Nitrofurantoin (BID) [Macrobid] 100 mg PO BIDWM 7 Days capsule 08/19/17 [Rx] predniSONE [Prednisone] 10 mg PO DAILY #40 tab.ds.pk 08/19/17 [Rx] Allergies/Adverse Reactions: 3 Allergy/AdvReac Type Severity Reaction Status Date / Time Iodinated Contrast- Oral and Allergy Unknown Difficulty Verified 08/14/17 05:21 IV Dye Breathing aspirin [ASA] Allergy Anaphylaxis Verified 03/16/17 10:42 Penicillins Allergy Anaphylaxis Verified 03/16/17 10:42 bupropion [From Wellbutrin] AdvReac Agitated Verified 03/16/17 10:42 Sulfa (Sulfonamide AdvReac Vomiting Verified 03/16/17 10:42 Antibiotics) Date of admission: 08/13/17 20:48 Primary care physician: PCP NONE Consults: 08/13/17 22:55 Consult to [employer] [CONS] Routine Reason for SW Consult: PT HAS HOME O2, POSSIBLE HH. DISCHARE PLANNING, IF PT SAFE TO RETURN HOME. PT CONFUSED AT ADMISSION 08/14/17 10:12 Consult to Oncology Hematology [CONS] Routine Consulting Provider: Humera Schaffer Reason for Consult: lung mass Call Completed: No 08/14/17 12:33 Consult to Occupational Therapy [CONS] Routine Comment: Evaluate, develop and implement POC Reason for Consult: eval Consult to Physical Therapy [CONS] Routine Comment: Evaluate, develop and implement POC Reason for Consult: eval 08/14/17 18:17 Consult to Pulmonology [CONS] Routine Consulting Provider: [facility] Reason for Consult: right upper lung mass concerning for primary lung carcinoma. Call Completed: No 08/17/17 16:01 Consult to Psychiatry [CONS] Routine Consulting Provider: Psychiatry Hannah Reason for Consult: ? dementia with superimposed delirium Call Completed: Yes Discharging clinician: Goldie Tobias Anticipated date of discharge: 08/19/17 - Patient Status Disposition: Transfer SNF Condition: Good Functional capacity at discharge: uses cane/walker Overall status at discharge: patient is progressing back to baseline - Discharge Instructions Instructions: Chronic Obstructive Pulmonary Disease (DC), Pulmonary Nodules (DC ) Follow Up With: NONE,PCP [Primary Care Provider] - Randa Reece MD [Partnered Physician] - - Diet and Activity Activity: as per physical therapy, wear oxygen at all times Diet: diabetic diet, low salt diet Interval History: Seen and examined at bedside. She is intermittently confused and tearful. Says she wants to go home, she is aware she is going to SNF. She has no complaints. Says she is breathing better, denies shortness of breath. No chest pain Hospital course: See assessment and plan for hospital course - Time Spent with Patient Total time spent providing and/or coordinating discharge services: Greater than 30 minutes (54 minutes spent on discharge) - Constitutional Vitals: Temp Pulse Resp BP Pulse Ox 97.9 F 74 18 114/62 92 08/19/17 11:46 08/19/17 11:46 08/19/17 11:46 08/19/17 11:46 08/19/17 11:46 General appearance: Present: A&O X 2, morbidly obese, no acute distress, answers questions appropriately - Head Head exam: Present: atraumatic, normocephalic - Eye Eye exam: Present: PERRL, conjuntiva pink, sclera anicteric Pupils: Present: PERRL Additional comments: Left eye with cataract - Neck Neck exam general surgery: Present: supple, trachea midline. Absent: lymphadenopathy - Respiratory Respiratory exam: Present: CTAB. Absent: accessory muscle use, rales, rhonchi, wheezes Additional comments: Oxygen on via nasal cannula - Cardiovascular Cardiovascular exam: Present: RRR, +S1, +S2. Absent: diastolic murmur, gallop, rubs, systolic murmur - GI/Abdominal GI/Abdominal exam: Present: normal bowel sounds, soft, no peritoneal signs. Absent: distended, tenderness Additional comments: Obese - Extremities Exam Extremities exam: Present: warm, radial pulses palpable and symmetrical. Absent : calf tenderness, cyanotic, pedal edema - Neurological Exam Neurological exam: Present: CN II-XII intact, oriented X3, no focal deficits. Absent: pronater drift, facial droop, speech deficit - Skin Skin exam: Present: dry, intact
--- NOTE | 2017-08-19 14:47 | Physician Discharge Referral ---
ExtendedCare Referral Info Transfer To: [facility] Provider in Charge: Goldie Tobias CNP Provider in Charge after Transfer: Other (SNF physician) Institutional Level of Care: Skilled - Diagnosis (1) Acute and chronic respiratory failure with hypercapnia Status: Acute (2) Acute diastolic CHF (congestive heart failure) Status: Acute (3) Acute exacerbation of chronic obstructive airways disease Status: Acute (4) Acute kidney injury Status: Acute (5) HLD (hyperlipidemia) Status: Chronic (6) HTN (hypertension) Status: Chronic - Transfer Medications Prescriptions: predniSONE [Prednisone] 10 mg PO DAILY #40 tab.ds.pk Home Medications: Albuterol Sulfate [Proair Respiclick] 2 puff IH Q4H PRN 09/29/15 [History] Fluticasone/Salmeterol [Advair 250-50 Diskus] 2 puff IH BID 09/29/15 [History] Lansoprazole [Prevacid] 30 mg PO DAILY 09/29/15 [History] Lisinopril [Zestril] 10 mg PO DAILY 09/29/15 [History] Tiotropium [Spiriva] 1 cap IH DAILY 09/29/15 [History] Albuterol Neb [Proventil Neb] 2.5 mg IH Q4H PRN 11/29/16 [History] FLUoxetine HCl [Fluoxetine HCl] 40 mg PO DAILY 01/19/17 [History] Atorvastatin [Lipitor] 40 mg PO HS #30 tablet 01/21/17 [Rx] Clopidogrel [Plavix] 75 mg PO DAILY #30 tablet 01/21/17 [Rx] Ipratropium/Albuterol Neb [Duoneb] 3 ml IH TID #60 inhsol 01/21/17 [Rx] Acetaminophen [Tylenol] 1,000 mg PO Q6HR PRN 02/08/17 [History] Furosemide [Lasix] 40 mg PO DAILY PRN #10 tab 07/08/17 [Rx] Gabapentin [Neurontin] 600 mg PO TID #21 07/08/17 [Rx] Insulin Glargine [Lantus] 25 unit SQ DAILY 30 Days mls 07/08/17 [Rx] clonazePAM [Klonopin] 1 mg PO BID PRN #14 tab 07/08/17 [Rx] Insulin LISPRO [HumaLOG] 0 units SQ HS vial 08/19/17 [Rx] Insulin LISPRO [HumaLOG] 0 units SQ TIDAC vial 08/19/17 [Rx] Nitrofurantoin (BID) [Macrobid] 100 mg PO BIDWM 7 Days capsule 08/19/17 [Rx] predniSONE [Prednisone] 10 mg PO DAILY #40 tab.ds.pk 08/19/17 [Rx] Allergies/Adverse Reactions: 3 Allergy/AdvReac Type Severity Reaction Status Date / Time Iodinated Contrast- Oral and Allergy Unknown Difficulty Verified 08/14/17 05:21 IV Dye Breathing aspirin [ASA] Allergy Anaphylaxis Verified 03/16/17 10:42 Penicillins Allergy Anaphylaxis Verified 03/16/17 10:42 bupropion [From Wellbutrin] AdvReac Agitated Verified 03/16/17 10:42 Sulfa (Sulfonamide AdvReac Vomiting Verified 03/16/17 10:42 Antibiotics) - Respiratory Orders Oxygen / L per min (3-4 to maintain saturations greater than or equal to 92%) Smoking Cessation: Smoking cessation has been advised. For more information, call the [place] Tobacco Quit Line at 8-382-OQON-NOW. - Lab Orders Lab Orders: Other (include drug levels w/frequency) (Recommend repeat CMP within 1 week) - Advance Directives Code Status: Full Code - Mobility Orders Other (Per physical therapy) - Rehabiliation Orders Rehab Orders: Evaluation for Physical Therapy, Evaluation for Occupational Therapy - Diet Orders No Added Salt (JESSIE), No Concentrated Sweets CERTIFICATION: I certify that the transfer of the above named patient to an Extended Care Facility is necessary for the continuing treatment of the diagnosis listed. The above information is true and accurate reflection of patient's current condition. Confidential - Redisclosure prohibited without a patient's written consent.
[2017-08-19] MEDS ORDERED: Nitrofurantoin (BID) 100 MG CAPSULE PO SCH (18:15)
--- NOTE | 2017-08-23 19:46 | Event Note ---
Date of Encounter: 08/23/17 Time of Encounter: 15:00 Infection control report received showing urine culture positive for Proteus mirabilis after patient was discharged. Patient is resident at [facility]. Called [facility] on 08/23/17 and spoke with the nurse named Manasa who reports Yara Carrera CNP (pts. PCP) thought urine culture was contaminated and will do new urine culture and order appropriate antibiotics for patient. Manasa also reported patient allergic to Invanz. Instructed the nurse that Zosyn was also appropriate IV antibiotic per C&S report.
== END 2017-08-19 16:20 | DRG 140 ==
LOC: 3BNU 17:30 → EMEROO 17:30 → 3BNU 20:20
PROVIDERS: ADMIT Family Medicine; ATTEND Registered Nurse